=== PATIENT | female | born 1950 | race Asian ===

== ENCOUNTER 2017-04-18 09:06 | Inpatient (IN) ==
[2017-04-18] MEDS ORDERED: ALBUTEROL/IPRATROPIUM 2.5mg-0.5mg/3ml NEB IH ONE (09:29)
[2017-04-18] MEDS ORDERED: SALINE FLUSH 10ml SYRINGE ONE (10:41)
[2017-04-18] MEDS ORDERED: IOHEXOL 350mg/ml 75ml INJECTION ONE (10:41)
[2017-04-18] MEDS ORDERED: NS 100 ML ONE (10:41)
--- NOTE | 2017-04-18 11:27 | CT Scan Report ---
Indication: elevated ddimer, soa PROCEDURE: CT angio pulm emboli: Encounter: Initial Comparison: CT chest dated March 22, 2017 and PET/CT dated April 05, 2017 Technique: Axial CT pulmonary angiographic phase images were performed through the chest after the administration of intravenous contrast. Coronal and Sagittal MIP reconstructed images were created and reviewed. Automated Exposure Control and Iterative Reconstruction dose reducing techniques were utilized. Contrast: Omnipaque 350 53 mL Findings: Pulmonary arteries: Exam is diagnostic to the subsegmental pulmonary arterial level. No filling defects identified to suggest a pulmonary embolus. Other findings: Continued groundglass areas of opacity and consolidation seen in the right middle and both lower lobes. These are not significantly changed. There is new interstitial edema present with trace right pleural effusion. No pneumothorax. The central airways are patent. Anterior mediastinal mass is stable in appearance. Small left axillary and supraclavicular nodes are similar to the prior exam. Heart remains enlarged. New small pericardial effusion. The upper abdomen shows no acute findings. Cholelithiasis. Impression: 1. No pulmonary embolus. Mild pulmonary edema. 2. Continued multifocal areas of consolidation could represent metastatic disease given the history of gastric cancer. Acute infection is unlikely given the stable appearance. .
--- NOTE | 2017-04-18 12:36 | Emergency Department Report ---
SOB HPI - General Chief Complaint: Shortness of Breath/Dyspnea Stated Complaint: short of breath Time Seen by Provider: 04/18/17 09:12 - History of Present Illness 66-year-old female presents to ED with acute shortness of breath. Patient has a history of gastric cancer with new nodules, questionable thymoma. She is scheduled for cardiac stress test today pending a biopsy. However this morning she got up and was short of breath. She has a finger pulse oximeter at home and she noticed her pulse ox was 87%. She came to the ED, where her pulse ox was 77 % on room air. It sounds like she's been using oxygen at night on occasion, but has never had to use it during the day. She is comfortable and 4 L oxygen nasal cannula. At this time. - Related Data Home Medications Medication Instructions Recorded Confirmed Calcium Carbonate/Vitamin D3 1 tab PO DAILY 04/10/17 04/18/17 [Calcium 600-Vit D3 2,500 Sftgl] Multivit,Calc,Mins/Iron/Folic 1 each PO DAILY 04/10/17 04/18/17 [Women's Daily Caplet] [place]-3 Fatty Acids/Fish Oil [Fish 1 cap PO DAILY 04/10/17 04/18/17 Oil 1,200 mg Softgel] Previous Rx's Medication Instructions Recorded Budesonide Inhalation [Pulmicort 0.5 mg AEROSOL RTBID #60 vial 04/28/17 Inhalation] Guaifenesin LA [Mucinex LA] 600 mg PO BID PRN #30 tab 04/28/17 LEVALBUTEROL 1.25mg/3ml NEB 1.25 mg AEROSOL BID #60 neb 04/28/17 [XOPENEX 1.25mg/3ml] PredniSONE [Deltasone] 20 mg PO WB #5 tab 04/28/17 Allergies Allergy/AdvReac Type Severity Reaction Status Date / Time No Known Allergies Allergy Verified 05/11/17 10:29 [facility] Patient Stated Medical History Other HEENT Yes: glasses Heart Murmur Yes 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 D-dimer 1024, CT PE obtained and negative, however multiple areas of consolidation were noted. These were felt to be metastatic disease rather than infectious process. Patient required significant O2 supplementation despite being given DuoNeb treatment and is not appropriate for discharge home. Extensive labs are reviewed, hospitalist was consulted. Patient will be admitted to hospital service with consult to Dr. Hilario. - Differential Diagnosis Likely: acute exacerbation of chronic obstructive airways disease, community acquired pneumonia, asthma with exacerbation, pulmonary embolism - Medical Records Attestation: I reviewed the patient's medical records. - Lab Data Attestation: I reviewed the patient's lab results. Result diagrams: 04/28/17 04:10 04/28/17 04:10 Lab Results 04/18/17 04/18/17 04/18/17 Range/Units 08:50 09:47 09:47 WBC 9.3 (4.5-11.0) T/MM3 RBC 4.53 (4.00-5.20) M/MM3 Hgb 12.3 (12-16) GM/DL Hct 38.5 (36-46) % MCV 85.0 (80-100) UM3 MCH 27.2 (26-34) UUG MCHC 31.9 (31-37) GM/DL RDW Std Deviation 46.6 (36.9-50.2) FL Plt Count 145 (130-400) T/MM3 MPV 11.4 (9.4-12.4) UM3 Immature Gran % (Auto) 0.1 (0.0-0.5) % Neut % (Auto) 78.5 H (33-66) % Lymph % (Auto) 16.0 L (23-45) % [place] % (Auto) 5.2 (0-9.0) % Eos % (Auto) 0.0 (0-4) % Baso % (Auto) 0.2 (0-2) % Neut # 7.3 (1.8-7.7) T/MM3 Lymph # 1.5 (1-4.8) T/MM3 Cascade # 0.5 (0-0.8) T/MM3 Eos # 0.0 (0-0.5) T/MM3 Baso # 0.0 (0-0.2) T/MM3 Abs Immat Gran (auto) 0.01 (0.00-0.03) T/MM3 ESR (0-23) mm/h INR 1.17 (0.99-1.21) D-Dimer 1024 H (0-230) NG/ML ABG pH (7.350-7.450) ABG pCO2 (34-45) MMHG ABG pO2 (80-100) MMHG ABG HCO3 (22-26) MEQ/L ABG Total CO2 (23-27) MEQ/L ABG O2 Saturation (95.0-98.0) % ABG Base Excess (-2.0-2.0) MMOL/L Carboxyhemoglobin (0.5-1.5) % O2 Delivery Method FiO2 (liters per min) Turbidity < 20 (0-20) Sodium 147 H (134-144) MEQ/L Potassium 3.5 L (3.6-5) MEQ/L Chloride 108 H (98-107) MEQ/L Carbon Dioxide 23 (22-30) MEQ/L Anion Gap 16 H (5-15) MEQ/L BUN 15.0 (7-17) MG/DL Creatinine 0.8 (0.7-1.2) MG/DL GFR Calculation 72 BUN/Creatinine Ratio 19 (6-26) RATIO Glucose 234 H (65-110) MG/DL Calculated Osmolality 291 H (261-280) MOSM/KG Calcium 9.5 (8.4-10.2) MG/DL Magnesium (1.6-2.3) MG/DL Total Bilirubin 1.60 H (0.20-1.30) MG/DL Icterus Index < 2 (0-7) AST 60 H (14-36) U/L ALT 57 H (9-52) U/L Alkaline Phosphatase 105 (38-126) U/L Troponin I 0.040 (0-0.12) ng/ml C-Reactive Protein (0-9) MG/L B-Natriuretic Peptide 5440 H (0-175) pg/mL Total Protein 7.9 (6.3-8.2) G/DL Albumin 4.1 (3.5-5.0) G/DL Globulin 3.8 H (2.4-3.6) G/DL Albumin/Globulin Ratio 1.1 (1.1-2.2) RATIO TSH (0.47-4.68) MIU/L Specimen Hemolysis < 15 (0-25) Ur Collection Type Urine Color (YELLOW) Urine Clarity Urine pH (5.0-8.0) Ur Specific [place] (1.015-1.025) Urine Protein (NEGATIVE) Urine Glucose (UA) (NEGATIVE) Urine Ketones (NEGATIVE) Urine Occult Blood (NEGATIVE) Urine Nitrate (NEGATIVE) Urine Bilirubin (NEGATIVE) Urine Urobilinogen (NORMAL) EU/DL Ur Leukocyte Esterase (NEGATIVE) Urinalysis Comment 04/18/17 04/18/17 04/18/17 Range/Units 09:47 09:47 09:47 WBC (4.5-11.0) T/MM3 RBC (4.00-5.20) M/MM3 Hgb (12-16) GM/DL Hct (36-46) % MCV (80-100) UM3 MCH (26-34) UUG MCHC (31-37) GM/DL RDW Std Deviation (36.9-50.2) FL Plt Count (130-400) T/MM3 MPV (9.4-12.4) UM3 Immature Gran % (Auto) (0.0-0.5) % Neut % (Auto) (33-66) % Lymph % (Auto) (23-45) % [place] % (Auto) (0-9.0) % Eos % (Auto) (0-4) % Baso % (Auto) (0-2) % Neut # (1.8-7.7) T/MM3 Lymph # (1-4.8) T/MM3 Cascade # (0-0.8) T/MM3 Eos # (0-0.5) T/MM3 Baso # (0-0.2) T/MM3 Abs Immat Gran (auto) (0.00-0.03) T/MM3 ESR (0-23) mm/h INR (0.99-1.21) D-Dimer (0-230) NG/ML ABG pH (7.350-7.450) ABG pCO2 (34-45) MMHG ABG pO2 (80-100) MMHG ABG HCO3 (22-26) MEQ/L ABG Total CO2 (23-27) MEQ/L ABG O2 Saturation (95.0-98.0) % ABG Base Excess (-2.0-2.0) MMOL/L Carboxyhemoglobin 1.1 (0.5-1.5) % O2 Delivery Method FiO2 (liters per min) Turbidity (0-20) Sodium (134-144) MEQ/L Potassium (3.6-5) MEQ/L Chloride (98-107) MEQ/L Carbon Dioxide (22-30) MEQ/L Anion Gap (5-15) MEQ/L BUN (7-17) MG/DL Creatinine (0.7-1.2) MG/DL GFR Calculation BUN/Creatinine Ratio (6-26) RATIO Glucose (65-110) MG/DL Calculated Osmolality (261-280) MOSM/KG Calcium (8.4-10.2) MG/DL Magnesium 1.9 (1.6-2.3) MG/DL Total Bilirubin (0.20-1.30) MG/DL Icterus Index (0-7) AST (14-36) U/L ALT (9-52) U/L Alkaline Phosphatase (38-126) U/L Troponin I (0-0.12) ng/ml C-Reactive Protein 12.4 H (0-9) MG/L B-Natriuretic Peptide (0-175) pg/mL Total Protein (6.3-8.2) G/DL Albumin (3.5-5.0) G/DL Globulin (2.4-3.6) G/DL Albumin/Globulin Ratio (1.1-2.2) RATIO TSH 1.73 (0.47-4.68) MIU/L Specimen Hemolysis (0-25) Ur Collection Type Urine Color (YELLOW) Urine Clarity Urine pH (5.0-8.0) Ur Specific [place] (1.015-1.025) Urine Protein (NEGATIVE) Urine Glucose (UA) (NEGATIVE) Urine Ketones (NEGATIVE) Urine Occult Blood (NEGATIVE) Urine Nitrate (NEGATIVE) Urine Bilirubin (NEGATIVE) Urine Urobilinogen (NORMAL) EU/DL Ur Leukocyte Esterase (NEGATIVE) Urinalysis Comment 04/18/17 04/18/17 04/18/17 Range/Units 09:58 10:40 11:14 WBC (4.5-11.0) T/MM3 RBC (4.00-5.20) M/MM3 Hgb (12-16) GM/DL Hct (36-46) % MCV (80-100) UM3 MCH (26-34) UUG MCHC (31-37) GM/DL RDW Std Deviation (36.9-50.2) FL Plt Count (130-400) T/MM3 MPV (9.4-12.4) UM3 Immature Gran % (Auto) (0.0-0.5) % Neut % (Auto) (33-66) % Lymph % (Auto) (23-45) % [place] % (Auto) (0-9.0) % Eos % (Auto) (0-4) % Baso % (Auto) (0-2) % Neut # (1.8-7.7) T/MM3 Lymph # (1-4.8) T/MM3 [place] # (0-0.8) T/MM3 Eos # (0-0.5) T/MM3 Baso # (0-0.2) T/MM3 Abs Immat Gran (auto) (0.00-0.03) T/MM3 ESR (0-23) mm/h INR (0.99-1.21) D-Dimer (0-230) NG/ML ABG pH 7.490 H (7.350-7.450) ABG pCO2 31 L (34-45) MMHG ABG pO2 59 L (80-100) MMHG ABG HCO3 24 (22-26) MEQ/L ABG Total CO2 24.6 (23-27) MEQ/L ABG O2 Saturation 92.0 L (95.0-98.0) % ABG Base Excess 0.9 (-2.0-2.0) MMOL/L Carboxyhemoglobin (0.5-1.5) % O2 Delivery Method Nasal cannula, liter FiO2 (liters per min) 4 Turbidity (0-20) Sodium (134-144) MEQ/L Potassium (3.6-5) MEQ/L Chloride (98-107) MEQ/L Carbon Dioxide (22-30) MEQ/L Anion Gap (5-15) MEQ/L BUN (7-17) MG/DL Creatinine (0.7-1.2) MG/DL GFR Calculation BUN/Creatinine Ratio (6-26) RATIO Glucose (65-110) MG/DL Calculated Osmolality (261-280) MOSM/KG Calcium (8.4-10.2) MG/DL Magnesium (1.6-2.3) MG/DL Total Bilirubin (0.20-1.30) MG/DL Icterus Index (0-7) AST (14-36) U/L ALT (9-52) U/L Alkaline Phosphatase (38-126) U/L Troponin I 0.060 (0-0.12) ng/ml C-Reactive Protein (0-9) MG/L B-Natriuretic Peptide (0-175) pg/mL Total Protein (6.3-8.2) G/DL Albumin (3.5-5.0) G/DL Globulin (2.4-3.6) G/DL Albumin/Globulin Ratio (1.1-2.2) RATIO TSH (0.47-4.68) MIU/L Specimen Hemolysis < 15 (0-25) Ur Collection Type Urine, clean catch Urine Color Yellow (YELLOW) Urine Clarity Clear Urine pH 6.0 (5.0-8.0) Ur Specific [place] <=1.005 L (1.015-1.025) Urine Protein Negative (NEGATIVE) Urine Glucose (UA) Negative (NEGATIVE) Urine Ketones Negative (NEGATIVE) Urine Occult Blood Negative (NEGATIVE) Urine Nitrate Negative (NEGATIVE) Urine Bilirubin Negative (NEGATIVE) Urine Urobilinogen 0.2 (NORMAL) EU/DL Ur Leukocyte Esterase Negative (NEGATIVE) Urinalysis Comment Microscopic not ind. 04/18/17 04/19/17 04/19/17 Range/Units 16:07 04:55 04:55 WBC 9.5 (4.5-11.0) T/MM3 RBC 4.67 (4.00-5.20) M/MM3 Hgb 12.8 (12-16) GM/DL Hct 39.4 (36-46) % MCV 84.4 (80-100) UM3 MCH 27.4 (26-34) UUG MCHC 32.5 (31-37) GM/DL RDW Std Deviation 46.5 (36.9-50.2) FL Plt Count 154 (130-400) T/MM3 MPV 12.3 (9.4-12.4) UM3 Immature Gran % (Auto) 0.1 (0.0-0.5) % Neut % (Auto) 77.6 H (33-66) % Lymph % (Auto) 15.0 L (23-45) % [place] % (Auto) 7.1 (0-9.0) % Eos % (Auto) 0.0 (0-4) % Baso % (Auto) 0.2 (0-2) % Neut # 7.3 (1.8-7.7) T/MM3 Lymph # 1.4 (1-4.8) T/MM3 C[place] # 0.7 (0-0.8) T/MM3 Eos # 0.0 (0-0.5) T/MM3 Baso # 0.0 (0-0.2) T/MM3 Abs Immat Gran (auto) 0.01 (0.00-0.03) T/MM3 ESR 25 H (0-23) mm/h INR (0.99-1.21) D-Dimer (0-230) NG/ML ABG pH (7.350-7.450) ABG pCO2 (34-45) MMHG ABG pO2 (80-100) MMHG ABG HCO3 (22-26) MEQ/L ABG Total CO2 (23-27) MEQ/L ABG O2 Saturation (95.0-98.0) % ABG Base Excess (-2.0-2.0) MMOL/L Carboxyhemoglobin (0.5-1.5) % O2 Delivery Method FiO2 (liters per min) Turbidity < 20 (0-20) Sodium 145 H (134-144) MEQ/L Potassium 3.3 L (3.6-5) MEQ/L Chloride 108 H (98-107) MEQ/L Carbon Dioxide 25 (22-30) MEQ/L Anion Gap 12 (5-15) MEQ/L BUN 16.0 (7-17) MG/DL Creatinine 0.6 L D (0.7-1.2) MG/DL GFR Calculation 100 BUN/Creatinine Ratio 27 H (6-26) RATIO Glucose 128 H (65-110) MG/DL Calculated Osmolality 282 H (261-280) MOSM/KG Calcium 9.1 (8.4-10.2) MG/DL Magnesium 2.1 (1.6-2.3) MG/DL Total Bilirubin 1.00 (0.20-1.30) MG/DL Icterus Index < 2 (0-7) AST 39 H (14-36) U/L ALT 46 (9-52) U/L Alkaline Phosphatase 84 (38-126) U/L Troponin I (0-0.12) ng/ml C-Reactive Protein (0-9) MG/L B-Natriuretic Peptide (0-175) pg/mL Total Protein 6.8 (6.3-8.2) G/DL Albumin 3.4 L (3.5-5.0) G/DL Globulin 3.4 (2.4-3.6) G/DL Albumin/Globulin Ratio 1.0 L (1.1-2.2) RATIO TSH (0.47-4.68) MIU/L Specimen Hemolysis < 15 (0-25) Ur Collection Type Urine Color (YELLOW) Urine Clarity Urine pH (5.0-8.0) Ur Specific [place] (1.015-1.025) Urine Protein (NEGATIVE) Urine Glucose (UA) (NEGATIVE) Urine Ketones (NEGATIVE) Urine Occult Blood (NEGATIVE) Urine Nitrate (NEGATIVE) Urine Bilirubin (NEGATIVE) Urine Urobilinogen (NORMAL) EU/DL Ur Leukocyte Esterase (NEGATIVE) Urinalysis Comment - Radiology Data Attestation: I reviewed the patient's radiology results. Disposition Clinical Impression: DYSPNEA Disposition: 02 To [facility] Condition: Stable Time of Disposition: 12:12 - Seen By: physician
--- NOTE | 2017-04-18 13:42 | History & Physical Report ---
<Theodora Pagan V - Last Filed: 04/18/17 14:36> History of Present Illness Date: 04/18/17 Chief complaint: Dyspnea HPI: Carson is a pleasant 66-year-old female who has had a complicated several months. She had a unintentional 8 pound weight loss . She was evaluated by her primary care provider, Nicole Gavin at [facility]. A CT of the chest was obtained back in March 2017 following complaints of shortness of breath. At that time, patient was found to have an anterior mediastinal mass which was concerning for thyoma or lymphoma. Unfortunately, a CT-guided needle biopsy of the mediastinal mass did reveal thymoma. Bone scan was performed on April 01 that was negative for osseous metastasis. Thyroid sonogram from March 22 did reveal a 22 millimeter nodule adjacent to the deep aspect of the left thyroid lobe. An EGD was performed by Dr. Ortiz on April 10, 2017 to obtain gastric biopsy. Pathology revealed invasive adenocarcinoma. This morning patient noted to be more short of breath. She checked her oxygen saturation at home and it was found to be in the 80s. She felt that her heart rate was running fast and she activated EMS for transportation to [facility] emergency room for further evaluation. On arrival, room air saturations revealed 77%. Patient was placed on 4 liters of oxygen by nasal cannula to maintain adequate saturations. Basic laboratory studies were obtained in the emergency room. CBC was unremarkable. Sodium was found to be elevated at 147, potassium 3.5, BUN 15, creatinine 0.8, glucose 234. AST and ALT are mildly elevated. Initial troponin 0.040, proBNP 5440. Patient does report that she has recently been on Cipro and completed this course. Yesterday, however, she is unclear why she was taking this. ABG is obtained with a pH of 7.490, pCO2 31, pO2 59, bicarbonate 24. A urinalysis is unremarkable. INR 1.17, D-Dimer is elevated at 1024. Due to this finding, a CT scan of the chest was obtained to rule out PE. No pulmonary emboli was noted, mild pulmonary edema is present. Multi focal areas of consolidation could represent metastatic disease given history of gastric cancer. It is felt that acute infection is more unlikely. Review of Systems Comprehensive ROS: completed and no additional positive findings except those as stated - Constitutional Constitutional: Present: weight loss - Cardiovascular Cardiovascular: Present: dyspnea on exertion - Respiratory Respiratory: Present: dyspnea, dyspnea on exertion PFSH Malignant Thymoma of Mediastinum History of kidney stones. 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 McEachern. EGD- 04/11/17- Dr Ortiz Family History: Father- Liver disease, ETOH use Mother- Alive and well at 96. 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 Calles Medications Home Medications Medication Instructions Recorded Confirmed Type Calcium Carbonate/Vitamin D3 1 tab PO DAILY 04/10/17 04/18/17 History [Calcium 600-Vit D3 2,500 Sftgl] Ciprofloxacin [Cipro] 500 mg PO BID 04/10/17 04/18/17 History Multivit,Calc,Mins/Iron/Folic 1 each PO DAILY 04/10/17 04/18/17 History [Women's Daily Caplet] Elton-3 Fatty Acids/Fish Oil [Fish 1 cap PO DAILY 04/10/17 04/18/17 History Oil 1,200 mg Softgel] Allergies Allergy/AdvReac Type Severity Reaction Status Date / Time No Known Allergies Allergy Verified 04/18/17 13:38 Exam Vital Signs: Temperature 97.8 F 04/18/17 09:07 Pulse Rate 95 04/18/17 10:30 Respiratory Rate 24 04/18/17 10:30 Blood Pressure 104/65 04/18/17 09:30 Pulse Oximetry 92 04/18/17 10:30 - Constitutional Present: no acute distress, well nourished, well developed - Routine HEENT Exam Eye: Present: EOMI, PERRL ENT: Present: mucous membranes moist, dentition normal - Routine Respiratory Exam Present: crackles (bilateral bases). Absent: wheezes - Routine Cardiovascular Exam Present: RRR, S1, S2. Absent: murmur - Routine Abdominal Exam Present: soft, normoactive bowel sounds, non distended. Absent: tenderness - Routine Extremities Exam Present: no edema, normal capillary refill - Routine Back/Spine/Pelvis Exam Back/Spine: Present: full ROM - Routine Skin Exam Present: intact, dry, warm - Routine Neurological Exam Present: alert, oriented X3, CN II-XII intact, moving all extremities - Routine Psychiatric Exam Present: normal affect, normal thought process Results - Labs CBC & Chem 7: 04/18/17 09:47 04/18/17 08:50 Assessment and Plan (1) Respiratory failure with hypoxia Current visit: Yes Status: Acute (2) Hypernatremia Current visit: Yes Status: Acute (3) Hypokalemia Current visit: Yes Status: Acute (4) Thymoma Current visit: Yes Status: Acute (5) Gastric adenocarcinoma Current visit: Yes Status: Acute DVT Prophylaxis: SCD's Resuscitation Status: Do Not Resuscitate Assessment and Plan: Plan Patient outpatient observation under the care of Dr. Guillen for acute respiratory failure with hypoxia, hypernatremia with hypokalemia. Consultation placed to Dr. Hilario. 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 Consultations placed to both Dr. Watson and Dr. Daly as requested by oncology team for further evaluation of cardiomegaly and pulmonary status. Monitor patient. Cardiac telemetry An echocardiogram is ordered for further cardiac evaluation. Obtain CRP and ESR for laboratory completeness. Patient did recently complete a ten-day course of Cipro for antimicrobial coverage. Will cover patient with IV Rocephin as there is some question regarding pulmonary infiltrates. She was given a one-time dose of 40 milligrams of IV Lasix as well as oral potassium supplementation. Oxygen therapy to maintain adequate saturations. SCDs to bilateral lower extremity for DVT prophylaxis. We did discuss advanced directives and patient does verbalize her wish to be a do not resuscitate We'll discuss further orders and plan of care with attending, Dr. Callejas. At time of discharge medical care will return to primary care provider Nicole Gavin at [facility] Hospital Course Summary Disclaimer: The visit summary below is not to be considered part of the above Progress Note. Hospital Course: 04/18/17 admission Plan Patient outpatient observation under the care of Dr. Guillen for acute respiratory failure with hypoxia, hypernatremia with hypokalemia. Consultation placed to Dr. Hilario. 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 Consultations placed to both Dr. Watson and Dr. Daly as requested by oncology team for further evaluation of cardiomegaly and pulmonary status. Monitor patient. Cardiac telemetry An echocardiogram is ordered for further cardiac evaluation. Obtain CRP and ESR for laboratory completeness. Patient did recently complete a ten-day course of Cipro for antimicrobial coverage. Will cover patient with IV Rocephin as there is some question regarding pulmonary infiltrates. She was given a one-time dose of 40 milligrams of IV Lasix as well as oral potassium supplementation. Oxygen therapy to maintain adequate saturations. SCDs to bilateral lower extremity for DVT prophylaxis. We did discuss advanced directives and patient does verbalize her wish to be a do not resuscitate Will discuss further orders and plan of care with attending, Dr. Callejas. At time of discharge medical care will return to primary care provider Nicole Gavin at [facility] <Ayaan Guillen - Last Filed: 04/18/17 16:31> History of Present Illness Date: 04/18/17 [facility] Patient Stated Medical History Other HEENT Yes: glasses Heart Murmur Yes Tuberculosis Yes: positive TB test in 1997/neg CXR/took treatment Exam Vital Signs: Temperature 98.5 F 04/18/17 12:55 Pulse Rate 98 04/18/17 12:55 Respiratory Rate 18 04/18/17 12:55 Blood Pressure 122/82 04/18/17 12:55 Pulse Oximetry 90 04/18/17 12:55 Oxygen Delivery Method Nasal Cannula Oxygen Flow Rate 4 Height/Weight/BMI: Height 1.55 m Weight 55.7 kg Body Mass Index 23.2 Results - Labs CBC & Chem 7: 04/18/17 09:47 04/18/17 08:50 Assessment and Plan (1) Respiratory failure with hypoxia Current visit: Yes Status: Acute (2) Pulmonary edema Current visit: Yes Status: Acute (3) Hypernatremia Current visit: Yes Status: Acute (4) Hypokalemia Current visit: Yes Status: Acute (5) Thymoma Current visit: Yes Status: Chronic (6) Gastric adenocarcinoma Problem details: Recently Dx. Current visit: Yes Status: Chronic Assessment and Plan: Assessment Respiratory failure with hypoxia Pulmonary edema Hypernatremia (POA) Hypokalemia (POA) Thymoma Gastric adenocarcinoma Have independently interviewed and examined pt. Chart reviewed. Case discussed with ED physician, Dr Hilario, and my [employer]. Care plan developed with my supervision; agree with above. Has been progressively more SOA for the past 2 week. Minor SOA with activities initially, but progressive to the point that she cannot get around well without O2. Uses O2 at night, but has not needed it during the day. Does report dry cough and chest congestion. Has not been producing sputum. No f/c. Just finished a course of ciprofloxacin for pneumonia. Is more SOA at night-needs to prop self up to sleep or sleep in a chair. No edema to LE. No chest pressure or pain. Denies palpitations. Does try to stay active. 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 Lungs: decreased breath sound. Minimal crackles. No distress with O2. CV: regular AB: soft nt/nd +BS MSE: awake alert appropriate Plan: With patients pulmonary edema causing hypoxia (room air sats 77% needing 4L O2 to improve) due feel inpatient admission would be prudent. In discussion with Dr Hilario, her heart has shown significant enlargement from prior scans - cardiac evaluation is warranted. Additionally, CT scan shows area of potential metastatic disease - Pulm evaluation for bronchoscopy would be prudent. Due to these urgent medical needs we anticipate greater than 2 midnight s of care will be needed. Will give Lasix 40mg IV x1 to help decrease pulmonary edema. Will give oral potassium this evening as potassium low at presentation and Lasix will waste potassium. Continue with supplemental O2 for respiratory support. Rocephin for pulmonary coverage. SCD for DVT prevention. Will need to follow lab due to medication use. - Time spent with patient greater than 35 minutes Hospital Course Summary Disclaimer: The visit summary below is not to be considered part of the above Progress Note. Hospital Course: 04/18/17 Admission Plan Inpatient admission under the care of Dr. Guillen for acute respiratory failure with hypoxia, hypernatremia with hypokalemia. Patients pulmonary edema causing RA sats of 77% make inpatient treatment prudent. Anticipate greater than 2 midnights of care needed. Consultation placed to Dr. Hilario. 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 Consultations placed to both Dr. Watson and Dr. Daly as requested by oncology team for further evaluation of cardiomegaly and pulmonary status. Monitor patient. Cardiac telemetry. An echocardiogram is ordered for further cardiac evaluation. Obtain CRP and ESR for laboratory completeness. Patient did recently complete a ten-day course of Cipro for antimicrobial coverage. Will cover patient with IV Rocephin as there is some question regarding pulmonary infiltrates. She was given a one-time dose of 40 milligrams of IV Lasix as well as oral potassium supplementation. Oxygen therapy to maintain adequate saturations. SCDs to bilateral lower extremity for DVT prophylaxis. We did discuss advanced directives and patient does verbalize her wish to be a do not resuscitate. At time of discharge medical care will return to primary care provider Nicole Gavin at [facility].
[2017-04-18] MEDS ORDERED: FUROSEMIDE 40 MG/4 ML INJECTION IVP ONE (13:57)
[2017-04-18] MEDS ORDERED: CIPROFLOXACIN 500 MG TABLET PO SCH (14:30)
[2017-04-18] MEDS ORDERED: CALCIUM 600 + VIT D 400 TABLET PO SCH (14:30)
[2017-04-18] MEDS: MULTIVITAMIN PO SCH (14:59)
[2017-04-18] MEDS: FISH OIL PO SCH (15:01)
--- NOTE | 2017-04-18 15:34 | Cardiology Consult Note ---
History of Present Illness Consult date: 04/18/17 <Coty Miranda - 04/18/17 15:33> Requesting physician: Ayaan Guillen <Coty Miranda - 04/18/17 15:33> Consult reason: pre-op evaluation <Coty Miranda - 04/18/17 15:33> Chief complaint: shortness of breath <Coty Miranda - 04/18/17 16:15> History of present illness: Carson is a pleasant 66-year-old female who is known to our practice and last saw Abida Wright SHELBY on 04/02/17 for surgical clearance for thyroid biopsy after a complicated several months. She had an abnormal EKG per report from her PCP, in clinic her EKG was Sinus rhythm with non specific T wave changes. She was Scheduled for a stress test using Sebastián protocol to be done today, as well as a 2D echo before the next visit. She had a unintentional 8 pound weight loss . She was evaluated by her primary care provider, Nicole Gavin at [facility]. A CT of the chest was obtained back in March 2017 following complaints of shortness of breath. At that time, patient was found to have an anterior mediastinal mass which was concerning for thyoma or lymphoma. Unfortunately, a CT-guided needle biopsy of the mediastinal mass did reveal thymoma. Bone scan was performed on April 01 that was negative for osseous metastasis. Thyroid sonogram from March 22 did reveal a 22 millimeter nodule adjacent to the deep aspect of the left thyroid lobe. An EGD was performed by Dr. Ortiz on April 10, 2017 to obtain gastric biopsy. Pathology revealed invasive adenocarcinoma. This morning patient noted to be more short of breath. She checked her oxygen saturation at home and it was found to be in the 80s. She felt that her heart rate was running fast and she activated EMS for transportation to [facility] emergency room for further evaluation. On arrival, room air saturations revealed 77%. Patient was placed on 4 liters of oxygen by nasal cannula to maintain adequate saturations. Basic laboratory studies were obtained in the emergency room. CBC was unremarkable. Sodium was found to be elevated at 147, potassium 3.5, BUN 15, creatinine 0.8, glucose 234. AST and ALT are mildly elevated. Initial troponin 0.040, proBNP 5440. Patient does report that she has recently been on Cipro and completed this course. Yesterday, however, she is unclear why she was taking this. ABG is obtained with a pH of 7.490, pCO2 31, pO2 59, bicarbonate 24. A urinalysis is unremarkable. INR 1.17, D-Dimer is elevated at 1024. Due to this finding, a CT scan of the chest was obtained to rule out PE. No pulmonary emboli was noted, mild pulmonary edema is present. Multi focal areas of consolidation could represent metastatic disease given history of gastric cancer. It is felt that acute infection is more unlikely. <RuthCoty 04/18/17 16:15> Review of Systems - Constitutional Constitutional: Present: weight loss. Absent: chills, fatigue, fever(s) < RuthCoty 04/18/17 16:09> - EENMT Eyes: Absent: change in vision <RuthCoty 04/18/17 16:09> Balance: Absent: vertigo <RuthCoty 04/18/17 16:09> Mouth/Throat: Absent: sore throat <RuthCoty 04/18/17 16:09> - Cardiovascular Cardiovascular: Present: dyspnea on exertion. Absent: chest pain, palpitations , syncope, orthopnea <RuthCoty 04/18/17 16:09> Vascular: Absent: pedal edema <RuthCoty 04/18/17 16:09> - Respiratory Respiratory: Present: dyspnea on exertion. Absent: cough <RuthCoty 16:09> - Gastrointestinal Gastrointestinal: Absent: diarrhea, nausea, vomiting <RuthCoty 16:09> - Genitourinary Genitourinary: Absent: dysuria <RuthCoty 04/18/17 16:09> - Integumentary/Breasts Integumentary: Absent: rash <RuthCoty 04/18/17 16:09> - Neurological Neurological: Absent: dizziness <RuthCoty kerr 04/18/17 16:09> - Endocrine Endocrine: Absent: palpitations <RuthCoty kerr 04/18/17 16:09> [facility] Patient Stated Medical History Sleep Apnea No Other Respiratory Yes: mass on right lung, o2 at night and prn <NarcisaSarthak sanon - 04/22/17 13:39> Patient Stated Medical History Other HEENT Yes: glasses Heart Murmur Yes 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 History of positive TB test in 1997 followed by negative chest x-ray <Coty Miranda - 04/18/17 16:09> Surgical History: [id number]. [facility]Eac[facility]. EGD- 04/11/17- Dr Ortiz <Coty Miranda - 04/18/17 15:33> Family History: Father- Liver disease, ETOH use Mother- Alive and well at 96. Brother-stomach cancer Brother at age 56 of colon cancer Sister with colon cancer <Coty Miranda - 04/18/17 16:09> - Social History Smoking status: Never smoker <Coty Miranda 04/18/17 15:33> Substance use type: does not use <Coty Miranda 04/18/17 16:09> Alcohol intake frequency: does not drink <Coty Miranda - 04/18/17 16:09> Housing: house <Coty Miranda 04/18/17 16:09> Current occupational status: employed <Coty Miranda 04/18/17 16:09> Current residence: Apartment/Private Home <Coty Miranda 04/18/17 15:33> Medications Home Medications Medication Instructions Recorded Confirmed Type Calcium Carbonate/Vitamin D3 1 tab PO DAILY 04/10/17 04/18/17 History [Calcium 600-Vit D3 2,500 Sftgl] Ciprofloxacin [Cipro] 500 mg PO BID 04/10/17 04/18/17 History Multivit,Calc,Mins/Iron/Folic 1 each PO DAILY 04/10/17 04/18/17 History [Women's Daily Caplet] [place]-3 Fatty Acids/Fish Oil [Fish 1 cap PO DAILY 04/10/17 04/18/17 History Oil 1,200 mg Softgel] <Sarthak Watson - 04/22/17 13:39> Allergies Allergy/AdvReac Type Severity Reaction Status Date / Time No Known Allergies Allergy Verified 04/18/17 13:38 <Sarthak Watson - 04/22/17 13:39> Exam Vital signs: Temperature 97.0 F 04/22/17 11:41 Pulse Rate 94 04/22/17 11:41 Respiratory Rate 20 04/22/17 11:41 Blood Pressure 95/66 04/22/17 11:41 Pulse Oximetry 94 04/22/17 13:27 Oxygen Delivery Method Nasal Cannula Oxygen Flow Rate 4 <Sarthak Watson - 04/22/17 13:39> Temperature 98.5 F 04/18/17 12:55 Pulse Rate 98 04/18/17 12:55 Respiratory Rate 18 04/18/17 12:55 Blood Pressure 122/82 04/18/17 12:55 Pulse Oximetry 90 04/18/17 12:55 Oxygen Delivery Method Nasal Cannula Oxygen Flow Rate 4 <Coty Miranda - 04/18/17 15:33> - Constitutional no acute distress, well developed, cooperative <Coty iMranda [facility] 04/18/17 16: 15> - Routine HEENT Exam Head: Present: normocephalic <Coty Miranda 04/18/17 16:15> ENT: Present: mucous membranes moist <Coty Miranda 04/18/17 16:15> - Routine Neck Exam Absent: JVD, carotid bruit <Coty Miranda 04/18/17 16:15> - Routine Chest/Breast/Axilla Exam Chest wall: Absent: tenderness <Coty Miranda 04/18/17 16:15> - Routine Respiratory Exam Present: wheezes (bilateral bases). Absent: CTA bilaterally <Coty Miranda 04/18/17 16:15> - Routine Cardiovascular Exam Present: RRR, no murmur. Absent: JVD <Coty Miranda 04/18/17 16:15> - Routine Abdominal Exam Present: soft, normoactive bowel sounds <Coty Miranda 04/18/17 16:15> - Routine Extremities Exam Present: no edema <RuthCoty Blount 04/18/17 16:15> - Routine Skin Exam Present: intact, dry. Absent: rash <Coty Miranda M - 04/18/17 16:15> - Routine Neurological Exam Present: alert, oriented X3 <Coty Miranda - 04/18/17 16:15> - Routine Psychiatric Exam Present: normal affect, normal thought process <Coty Miranda - 04/18/17 16: 15> Results 04/22/17 04:52 04/22/17 04:52 <Wilfrido Watsonin - 04/22/17 13:39> CBC 04/22/17 Range/Units 04:52 WBC 8.9 (4.5-11.0) T/MM3 RBC 4.53 (4.00-5.20) M/MM3 Hgb 12.5 (12-16) GM/DL Hct 38.7 (36-46) % Plt Count 118 L (130-400) T/MM3 Neut # 6.2 (1.8-7.7) T/MM3 Lymph # 2.1 (1-4.8) T/MM3 [place] # 0.6 (0-0.8) T/MM3 Eos # 0.0 (0-0.5) T/MM3 Baso # 0.0 (0-0.2) T/MM3 Comprehensive Metabolic Panel 04/22/17 Range/Units 04:52 Sodium 143 (134-144) MEQ/L Potassium 3.7 (3.6-5) MEQ/L Chloride 107 (98-107) MEQ/L Carbon Dioxide 26 (22-30) MEQ/L BUN 15.0 (7-17) MG/DL Creatinine 0.6 L (0.7-1.2) MG/DL Glucose 127 H (65-110) MG/DL Calcium 8.6 (8.4-10.2) MG/DL Intake and Output 04/21/17 04/22/17 04/22/17 22:59 06:59 14:59 Intake Total 780 / 780 0 / 0 240 / 240 Output Total 450 / 450 100 / 100 425 / 425 Balance 330 / 330 -100 / -100 -185 / -185 Intake: IV 100 / 100 Rocephin 1 G In Normal 100 / 100 Saline 100 ml @ 200 mls/ hr IV Q24H [facility] Rx#: [id number] Oral 680 / 680 0 / 0 240 / 240 Output: Urine 450 / 450 100 / 100 425 / 425 Other: # Bowel Movements 1 Weight 55.3 kg Patient Weight 04/23/17 06:59 Weight 55.3 kg <Sarthak Watson - 04/22/17 13:39> Intake and Output 04/18/17 04/18/17 04/18/17 06:59 14:59 22:59 Other: # Voids 1 Weight 122 lb 12.76 oz Patient Weight 04/19/17 06:59 Weight 122 lb 12.76 oz Laboratory Results - last 48 hr 04/18/17 04/18/17 04/18/17 08:50 09:47 09:47 WBC 9.3 RBC 4.53 Hgb 12.3 Hct 38.5 MCV 85.0 MCH 27.2 MCHC 31.9 RDW Std Deviation 46.6 Plt Count 145 MPV 11.4 Immature Gran % (Auto) 0.1 Neut % (Auto) 78.5 H Lymph % (Auto) 16.0 L [place] % (Auto) 5.2 Eos % (Auto) 0.0 Baso % (Auto) 0.2 Neut # 7.3 Lymph # 1.5 [place] # 0.5 Eos # 0.0 Baso # 0.0 Abs Immat Gran (auto) 0.01 INR 1.17 D-Dimer 1024 H ABG pH ABG pCO2 ABG pO2 ABG HCO3 ABG Total CO2 ABG O2 Saturation ABG Base Excess Carboxyhemoglobin O2 Delivery Method FiO2 (liters per min) Turbidity < 20 Sodium 147 H Potassium 3.5 L Chloride 108 H Carbon Dioxide 23 Anion Gap 16 H BUN 15.0 Creatinine 0.8 GFR Calculation 72 BUN/Creatinine Ratio 19 Glucose 234 H Calculated Osmolality 291 H Calcium 9.5 Total Bilirubin 1.60 H Icterus Index < 2 AST 60 H ALT 57 H Alkaline Phosphatase 105 Troponin I 0.040 C-Reactive Protein B-Natriuretic Peptide 5440 H Total Protein 7.9 Albumin 4.1 Globulin 3.8 H Albumin/Globulin Ratio 1.1 Specimen Hemolysis < 15 Ur Collection Type Urine Color Urine Clarity Urine pH Ur Specific [place] Urine Protein Urine Glucose (UA) Urine Ketones Urine Occult Blood Urine Nitrate Urine Bilirubin Urine Urobilinogen Ur Leukocyte Esterase Urinalysis Comment 04/18/17 04/18/17 04/18/17 09:47 09:47 09:58 WBC RBC Hgb Hct MCV MCH MCHC RDW Std Deviation Plt Count MPV Immature Gran % (Auto) Neut % (Auto) Lymph % (Auto) [place] % (Auto) Eos % (Auto) Baso % (Auto) Neut # Lymph # [place] # Eos # Baso # Abs Immat Gran (auto) INR D-Dimer ABG pH 7.490 H ABG pCO2 31 L ABG pO2 59 L ABG HCO3 24 ABG Total CO2 24.6 ABG O2 Saturation 92.0 L ABG Base Excess 0.9 Carboxyhemoglobin 1.1 O2 Delivery Method Nasal cannula, liter FiO2 (liters per min) 4 Turbidity Sodium Potassium Chloride Carbon Dioxide Anion Gap BUN Creatinine GFR Calculation BUN/Creatinine Ratio Glucose Calculated Osmolality Calcium Total Bilirubin Icterus Index AST ALT Alkaline Phosphatase Troponin I C-Reactive Protein 12.4 H B-Natriuretic Peptide Total Protein Albumin Globulin Albumin/Globulin Ratio Specimen Hemolysis Ur Collection Type Urine Color Urine Clarity Urine pH Ur Specific [place] Urine Protein Urine Glucose (UA) Urine Ketones Urine Occult Blood Urine Nitrate Urine Bilirubin Urine Urobilinogen Ur Leukocyte Esterase Urinalysis Comment 04/18/17 04/18/17 10:40 11:14 WBC RBC Hgb Hct MCV MCH MCHC RDW Std Deviation Plt Count MPV Immature Gran % (Auto) Neut % (Auto) Lymph % (Auto) [place] % (Auto) Eos % (Auto) Baso % (Auto) Neut # Lymph # [place] # Eos # Baso # Abs Immat Gran (auto) INR D-Dimer ABG pH ABG pCO2 ABG pO2 ABG HCO3 ABG Total CO2 ABG O2 Saturation ABG Base Excess Carboxyhemoglobin O2 Delivery Method FiO2 (liters per min) Turbidity Sodium Potassium Chloride Carbon Dioxide Anion Gap BUN Creatinine GFR Calculation BUN/Creatinine Ratio Glucose Calculated Osmolality Calcium Total Bilirubin Icterus Index AST ALT Alkaline Phosphatase Troponin I 0.060 C-Reactive Protein B-Natriuretic Peptide Total Protein Albumin Globulin Albumin/Globulin Ratio Specimen Hemolysis < 15 Ur Collection Type Urine, clean catch Urine Color Yellow Urine Clarity Clear Urine pH 6.0 Ur Specific [place] <=1.005 L Urine Protein Negative Urine Glucose (UA) Negative Urine Ketones Negative Urine Occult Blood Negative Urine Nitrate Negative Urine Bilirubin Negative Urine Urobilinogen 0.2 Ur Leukocyte Esterase Negative Urinalysis Comment Microscopic not ind. <Coty Miranda - 04/18/17 16:09> - Imaging and Cardiology Imaging & Cardiology Narrative: Date of Exam: 08/17/17 Ordering Provider: Elder Ch MD Type of Exam(s): CT angio pulm emboli Reason for Exam(s): elevated ddimer, soa Indication: elevated ddimer, soa PROCEDURE: CT angio pulm emboli: Encounter: Initial Comparison: CT chest dated March 22, 2017 and PET/CT dated April 05, 2017 Technique: Axial CT pulmonary angiographic phase images were performed through the chest after the administration of intravenous contrast. Coronal and Sagittal MIP reconstructed images were created and reviewed. Automated Exposure Control and Iterative Reconstruction dose reducing techniques were utilized. Contrast: Omnipaque 350 53 mL Findings: Pulmonary arteries: Exam is diagnostic to the subsegmental pulmonary arterial level. No filling defects identified to suggest a pulmonary embolus. Other findings: Continued groundglass areas of opacity and consolidation seen in the right middle and both lower lobes. These are not significantly changed. There is new interstitial edema present with trace right pleural effusion. No pneumothorax. The central airways are patent. Anterior mediastinal mass is stable in appearance. Small left axillary and supraclavicular nodes are similar to the prior exam. Heart remains enlarged. New small pericardial effusion. The upper abdomen shows no acute findings. Cholelithiasis. Impression: 1. No pulmonary embolus. Mild pulmonary edema. 2. Continued multifocal areas of consolidation could represent metastatic disease given the history of gastric cancer. Acute infection is unlikely given the stable appearance. 04/18/17 15:33 <oCty Miranda - 04/18/17 15:33> EKG interpretations - Dysrhythmias Sinus rhythms and dysrhythmias: sinus rhythm <Coty Miranda - 04/18/17 16:09> - Blocks, axis, hypertrophy, ST abn Repolarization changes or abnormalities: nonspecific abnormality, ST segment, and/or T wave <Coty Miranda - 04/18/17 16:09> Assessment and Plan (1) Respiratory failure with hypoxia Current visit: Yes Status: Acute (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 Current visit: Yes Status: Chronic (4) Encounter for preprocedural cardiovascular examination Current visit: Yes Status: Acute (5) Abnormal electrocardiogram Current visit: Yes Status: Acute (6) Pulmonary edema Current visit: Yes Status: Acute (7) Pulmonary hypertension Current visit: Yes Status: Acute <Sarthak Watson - 04/22/17 13:39> (1) Pulmonary edema Current visit: Yes Status: Acute Gentle diuresis with Lasix 20mg IV daily. Monitor response and BP. Monitor electrolytes and renal function (2) Respiratory failure with hypoxia Current visit: Yes Status: Acute (3) Encounter for preprocedural cardiovascular examination Current visit: Yes Status: Acute Obtain echo. Further cardiac work-up, such as scheduled stress test should be done at some point in the future. (4) Abnormal electrocardiogram Current visit: Yes Status: Acute (5) Thymoma Current visit: Yes Status: Chronic (6) Gastric adenocarcinoma Problem details: Recently Dx. Current visit: Yes Status: Chronic (7) Pulmonary hypertension Current visit: Yes Status: Acute Right heart dilated on Echo due to patient's pulmonary disease. pa pressures on echo 72mmhg. Needs to proceed with bronchoscopy if indicated by pulmonary Gentle diuresis with Lasix 20mg IV daily. Monitor response and BP. Monitor electrolytes and renal function <Coty Miranda - 04/22/17 12:21> - Attestation Attestation Narrative: 04/22/17 13:39 Recommendation After examining the patient I agree with the above assessment. I am involved in the formulation of the patient's plan of care. <Sarthak Watson - 04/22/17 13:39> Hospital Course Summary Disclaimer: The visit summary below is not to be considered part of the above Progress Note. <Sarthak Watson - 04/22/17 13:39> The visit summary below is not to be considered part of the above Progress Note. <Coty Miranda - 04/18/17 15:33> Hospital Course: 04/18/17 admission Plan Patient outpatient observation under the care of Dr. Guillen for acute respiratory failure with hypoxia, hypernatremia with hypokalemia. Consultation placed to Dr. Hilario. 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 Consultations placed to both Dr. Watson and Dr. Daly as requested by oncology team for further evaluation of cardiomegaly and pulmonary status. Monitor patient. Cardiac telemetry An echocardiogram is ordered for further cardiac evaluation. Obtain CRP and ESR for laboratory completeness. Patient did recently complete a ten-day course of Cipro for antimicrobial coverage. Will cover patient with IV Rocephin as there is some question regarding pulmonary infiltrates. She was given a one-time dose of 40 milligrams of IV Lasix as well as oral potassium supplementation. Oxygen therapy to maintain adequate saturations. SCDs to bilateral lower extremity for DVT prophylaxis. We did discuss advanced directives and patient does verbalize her wish to be a do not resuscitate Will discuss further orders and plan of care with attending, Dr. Callejas. At time of discharge medical care will return to primary care provider Nicole Gavin at [facility] <Coty Miranda - 04/18/17 15:33> Sepsis Assessment - Evaluation Sepsis screening result: No Definite Risk <Coty Miranda 04/18/17 15:33>
[2017-04-18] MEDS ORDERED: ACETAMINOPHEN 325 MG TABLET PO PRN (15:44)
[2017-04-18] MEDS ORDERED: ONDANSETRON 4 MG/2 ML INJECTION IVP PRN (15:45)
[2017-04-18] MEDS ORDERED: POLYETHYL GLYCOL 3350 17gm PACKET PO PRN (15:49)
[2017-04-18] MEDS: CEFTRIAXONE 1 G in NS 100 ML IV SCH (16:30)
[2017-04-18] MEDS: NS FLUSH BAG 500ml IV PRN (16:48)
--- NOTE | 2017-04-18 16:56 | Consult Note ---
Oncology HPI - Data of Consult Patient: new to practice <Patsy Elaine - 04/18/17 16:57> Requesting Physician: Ayaan Guillen MD <Markus Hilario - 04/18/17 18:12> Ayaan Guillen MD <CheleKaryna hopemonserrat Heller - 04/18/17 17:32> Primary Care Provider: Nicole Gavin APRN <Markus Hilario - 04/18/17 18:12> Nicole Gavin APRN <Patsy Elaine - 04/18/17 17:32> Family Provider: Nicole Gavin APRN <Markus Hilario - 04/18/17 18:12> Nicole Gavin APRN <Patsy Elaine - 04/18/17 17:32> - Consult Narrative History of present illness: Patient had upper endoscopy by Dr. Ortiz that showed a gastric ulcer with mass. Biopsy shows gastric adenocarcinoma. She had the sudden onset of increasing shortness of breath this morning. She came into the ER for evaluation and found to have a elevated BNP. CT scan shows increased cardiomegaly along with changes that could be worrisome for lymphangitic spread of cancer along with the prior infiltrates that were present in March that did not change significantly. <Markus Hilario - 04/18/17 18:12> 66 yr. 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 Was undergoing continued workup. Has had persistent signs respiratory infection. Today had acute episode of dyspnea with noted hypoxia; was admitted to [facility] [place] for further evaluation and supportive care. At time of intake, is alert and oriented. Feels weak. Denies h/ a, vision changes. No chest pain. Denies feeling SOA. Has intermittent non- prod. cough. Dennies chest pain. No n/v. One episode of loose stools and reports "green stools for past few days." No hematuria/dyusuria. See below for oncology HPI History of Present Illness --1987: Positive PPD. Negative chest x-ray. Treated with 6 months of presumed INH. --01/2017: Cough productive of green-yellow sputum. --03/21/17: Chest x-ray showing right middle lobe consolidation. 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 --Family history positive for colon cancer in youngest brother and older sister brother with gastric cancer. She had colonoscopy in 2011. 04/08/17: Carson is here this morning by herself. We reviewed her pathology which showed thymoma. We reviewed the side effects and treatment options. Treatment is usually surgery. She is currently stage II based on current testing. For stage III we could look at radiation therapy and possibly chemotherapy. We reviewed the images of her PET scan. In her stomach, there is an area on the wall of her stomach that is worrisome so it is important to get the EGD she has scheduled for consultation on Saturday. If there is cancer in the stomach that would take precedence over the thymoma surgery. She is not coughing much; usually only if her throat is dry so she keeps trying to drink water. Will give an antibiotic for pulmonary infiltrates. Carson asked that I call her daughter to discuss today's visit. <Patsy Elaine 04/18/17 17:32> Review of Systems - Constitutional Constitutional: Present: fatigue, weakness, weight loss <Patsy Elaine 16:57> - EENT Eyes: Absent: loss of vision <Patsy Elaine 04/18/17 16:57> Mouth/Throat: Absent: sore throat, painful swallowing <Patsy Elaine 16:57> - Cardiovascular Cardiovascular: Absent: chest pain, palpitations, edema <Patsy Elaine 17:32> - Respiratory Respiratory: Present: dyspnea, dyspnea on exertion. Absent: hemoptysis, wheezing <Patsy Elaine 04/18/17 17:32> - Gastrointestinal Gastrointestinal: Present: change in stool character ("green stools for past few days"). Absent: abdominal pain, hematemesis, hematochezia <Patsy Elaine 04/18/17 17:32> - Genitourinary Genitourinary: Absent: hematuria, urinary incontinence <Patsy Elaine 04/18 17:32> - Musculoskeletal Musculoskeletal: Present: muscle weakness. Absent: arthralgias <Patsy Elaine - 04/18/17 17:32> - Integumentary/Breasts Integumentary: Absent: pruritus, rash <Patsy Elaine - 04/18/17 17:32> - Neurological Neurological: Present: weakness <Patsy Elaine 04/18/17 16:57> - Psychiatric Psychiatric: Absent: anxiety, depression <Patsy Elaine 04/18/17 16:57> [facility] Patient Stated Medical History Other HEENT Yes: glasses Heart Murmur Yes Tuberculosis Yes: positive TB test in 1997/neg CXR/took treatment <Markus Hilario - 04/18/17 18:12> Patient Stated Medical History Other HEENT Yes: glasses Heart Murmur Yes Tuberculosis Yes: positive 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 McEachern. EGD- 04/11/17- Dr Ortiz <Patsy Elaine - 04/18/17 16:57> - Social History Smoking status: Never smoker <Patsy Elaine 04/18/17 16:57> Current residence: Apartment/Private Home <Patsy Elaine - 04/18/17 16:57> Medications Home Medications Medication Instructions Recorded Confirmed Type Calcium Carbonate/Vitamin D3 1 tab PO DAILY 04/10/17 04/18/17 History [Calcium 600-Vit D3 2,500 Sftgl] Ciprofloxacin [Cipro] 500 mg PO BID 04/10/17 04/18/17 History Multivit,Calc,Mins/Iron/Folic 1 each PO DAILY 04/10/17 04/18/17 History [Women's Daily Caplet] [place]-3 Fatty Acids/Fish Oil [Fish 1 cap PO DAILY 04/10/17 04/18/17 History Oil 1,200 mg Softgel] <Markus Hilario - 04/18/17 18:12> Allergies Allergy/AdvReac Type Severity Reaction Status Date / Time No Known Allergies Allergy Verified 04/18/17 13:38 <Markus Hilario - 04/18/17 18:12> Exam Vital signs: Temperature 95.2 F L 04/18/17 16:13 Pulse Rate 86 04/18/17 16:13 Respiratory Rate 20 04/18/17 16:13 Blood Pressure 126/77 04/18/17 16:13 Pulse Oximetry 93 04/18/17 17:06 Oxygen Delivery Method Nasal Cannula Oxygen Flow Rate 4 <Markus Hilario - 04/18/17 18:12> Temperature 95.2 F L 04/18/17 16:13 Pulse Rate 86 04/18/17 16:13 Respiratory Rate 20 04/18/17 16:13 Blood Pressure 126/77 04/18/17 16:13 Pulse Oximetry 92 04/18/17 16:13 Oxygen Delivery Method Nasal Cannula Oxygen Flow Rate 4 <Patsy Elaine - 04/18/17 16:57> - Constitutional no acute distress, well nourished, well developed <Patsy Elaine - 04/18/17 16:57> - Routine HEENT Exam Head: Present: normocephalic <Patsy Elaine - 04/18/17 16:57> Eye: Present: EOMI, PERRL, scleral injection, conjunctivae pink <Patsy Elaine - 04/18/17 16:57> ENT: Present: mucous membranes moist <Patsy Elaine - 04/18/17 16:57> Nose: moist mucous membranes <Patsy Elaine - 04/18/17 16:57> - Routine Neck Exam Present: lymphadenopathy (left anterior cervical 1 cm, left supraclavicular) <Markus Hilario - 04/18/17 18:12> Present: supple, lymphadenopathy (left anterior cervical 1 cm). Absent: tenderness <Patsy Elaine - 04/18/17 16:57> - Routine Respiratory Exam Present: rhonchi, crackles (bibasilar crackles). Absent: wheezes <Patsy Elaine - 04/18/17 17:32> - Routine Cardiovascular Exam Present: S3 <Markus Hilario - 04/18/17 18:12> Present: RRR, tachycardia. Absent: no murmur, gallop <Patsy Elaine - 04/18/17 16:57> - Routine Abdominal Exam Present: non distended <Markus Hilario - 04/18/17 18:12> Present: soft. Absent: tenderness, organomegaly <Patsy Elaine - 04/18/17 16:57> - Routine Extremities Exam Absent: cyanosis, no edema <Patsy Elaine - 04/18/17 16:57> - Routine Back/Spine/Pelvis Exam Back/Spine: Absent: vertebral tenderness <Patsy Elaine 04/18/17 16:57> - Routine Skin Exam Present: intact, dry, warm <Patsy Elaine - 04/18/17 16:57> - Routine Neurological Exam Present: alert, oriented X3, moving all extremities <Patsy Elaine 16:57> - Routine Psychiatric Exam Present: normal affect, normal thought process <Patsy Elaine 04/18/17 16: 57> Oncology Results - Labs CBC & Chem 7: 04/18/17 09:47 04/18/17 08:50 <Markus Hilario - 04/18/17 18:12> - Impressions CT scan reviewed and shows cardiomegaly and pulmonary infiltrates. Discussed with Dr. Yates. <Markus Hilario - 04/18/17 18:12> Assessment and Plan Assessment and Plan: 1. Elevated BNP and shortness of breath suggestive of congestive heart failure currently better after Lasix. CT scan does show small pericardial effusion will evaluate with echocardiogram. 2. Gastric cancer shown on recent biopsy HER-2 testing is currently pending. It was 1+ on IHC with fish being pending. I am concerned that she has metastatic disease to the left supraclavicular lymph node and would consider biopsy to confirm this if further biopsies do not confirm metastatic disease 3. Thymoma present anterior mediastinum found on needle biopsy 4. 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 With 3 negative AFB smears at [facility] March 2017 5. Pulmonary infiltrates with appearance of a air bronchogram and infiltrates around the bronchus along with other areas that appeared nodular and more infectious or lymphangitic spread of carcinoma. Will consult Dr. Daly for consideration of bronchoscopy and biopsy to confirm diagnosis of etiology of infiltrates. Recommendations Cardiology consultation Echocardiogram Pulmonary consultation Consider bronchoscopy Diuresis Staging of gastric cancer to determine best treatment <Markus Hilario 04/18/17 18:12> Sepsis Assessment - Evaluation Sepsis screening result: No Definite Risk <Patsy Elaine - 04/18/17 16:57>
[2017-04-18] MEDS: SALINE FLUSH 10ml SYRINGE IVF PRN (20:38)
[2017-04-19 07:34] VITALS: BMI 23.0
--- NOTE | 2017-04-19 07:37 | Echocardiogram ---
DATE OF PROCEDURE April 18, [address] Ayaan Guillen This is a two-dimensional echo with spectral Doppler, color-flow and M-mode. It was obtained in a patient with cardiomegaly. Left atrial dimension is normal. Left ventricle end-diastolic dimension is normal. Left ventricle wall thickness increased. LV systolic function is normal with ejection fraction of about 74%. Right atrium is dilated. Right ventricle is dilated with global hypokinesia. Aortic root dimension is normal. Mitral valve is morphologically normal with mild mitral regurgitation. Aortic valve is a trileaflet structure with no stenosis or insufficiency. Tricuspid valve shows [id number] tricuspid regurgitation with severe pulmonary hypertension with estimated pulmonary artery systolic pressure of 72. Interventricular septum is flat suggestive of pressure overload. Pulmonary valve shows mild pulmonary insufficiency. There is no pericardial effusion. IMPRESSION 1. Normal LV systolic function with ejection fraction of 74%. 2. Left ventricular hypertrophy. 3. Right atrial dilation. 4. Right ventricular dilation with global hypokinesia. 5. Mild mitral regurgitation. 6. [id number] tricuspid regurgitation with severe pulmonary hypertension with estimated pulmonary artery systolic pressure of 72. 7. Mild pulmonary insufficiency. MTDD
--- NOTE | 2017-04-19 07:55 | Pulmonology Consult Note ---
History of Present Illness Consult date: 04/19/17 Reason for consult: dyspnea, cough, abnormal CXR/CT History of present illness: History of present illness: Patient states she feels better today, since she is using O2. Still weak. Reports some coughing and mild sputum. No chest pain. Denies fever. Patient had upper endoscopy by Dr. Ortiz that showed a gastric ulcer with mass. Biopsy shows gastric adenocarcinoma. She had the sudden onset of increasing shortness of breath this morning. She came into the ER for evaluation and found to have a elevated BNP. CT scan shows increased cardiomegaly along with changes that could be worrisome for lymphangitic spread of cancer along with the prior infiltrates that were present in March that did not change significantly. <Markus Hilario - 04/18/17 18:12> 66 yr. 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 Was undergoing continued workup. Has had persistent signs respiratory infection. Today had acute episode of dyspnea with noted hypoxia; was admitted to [facility] [place] for further evaluation and supportive care. At time of intake, is alert and oriented. Feels weak. Denies h/ a, vision changes. No chest pain. Denies feeling SOA. Has intermittent non- prod. cough. Dennies chest pain. No n/v. One episode of loose stools and reports "green stools for past few days." No hematuria/dyusuria. See below for oncology HPI History of Present Illness --1987: Positive PPD. Negative chest x-ray. Treated with 6 months of presumed INH. --01/2017: Cough productive of green-yellow sputum. --03/21/17: Chest x-ray showing right middle lobe consolidation. 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 --Family history positive for colon cancer in youngest brother and older sister brother with gastric cancer. She had colonoscopy in 2011. 04/08/17: Carson is here this morning by herself. We reviewed her pathology which showed thymoma. We reviewed the side effects and treatment options. Treatment is usually surgery. She is currently stage II based on current testing. For stage III we could look at radiation therapy and possibly chemotherapy. We reviewed the images of her PET scan. In her stomach, there is an area on the wall of her stomach that is worrisome so it is important to get the EGD she has scheduled for consultation on Saturday. If there is cancer in the stomach that would take precedence over the thymoma surgery. She is not coughing much; usually only if her throat is dry so she keeps trying to drink water. Will give an antibiotic for pulmonary infiltrates. Carson asked that I call her daughter to discuss today's visit. 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 McEachern. EGD- 04/11/17- Dr Ortiz <Patsy Elaine Pina - 04/18/17 16:57> - Social History Smoking status: Never smoker <Patsy Elaine Pina - 04/18/17 16:57> Current residence: Apartment/Private Home <Patsy Elaine Pina - 04/18/17 16:57> Review of Systems - Constitutional Constitutional: Present: weight loss. 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 McEachern. EGD- 04/11/17- Dr Ortiz - Social History Smoking status: Never smoker Current residence: Apartment/Private Home Medications Allergies Allergy/AdvReac Type Severity Reaction Status Date / Time No Known Allergies Allergy Verified 04/18/17 13:38 Exam Vital signs: Temperature 95.8 F L 04/19/17 07:30 Pulse Rate 76 04/19/17 07:30 Respiratory Rate 20 04/19/17 07:30 Blood Pressure 114/69 04/19/17 07:30 Pulse Oximetry 93 04/19/17 07:30 Oxygen Delivery Method Nasal Cannula Oxygen Flow Rate 4 - Constitutional no acute distress - Routine HEENT Exam Head: Present: normocephalic, atraumatic Eye: Present: PERRL ENT: Present: mucous membranes moist - Routine Neck Exam Present: supple, full ROM - Routine Respiratory Exam Present: crackles - Routine Cardiovascular Exam Present: RRR, S1, S2. Absent: murmur - Routine Abdominal Exam Present: soft - Routine Extremities Exam Absent: cyanosis, clubbing - Routine Skin Exam Present: intact. Absent: erythema, rash - Routine Neurological Exam Present: alert, oriented X3 - Routine Psychiatric Exam Present: normal affect Results - Laboratory Findings CBC and BMP: 04/19/17 04:55 04/19/17 04:55 ABG ABG pH 7.490 (7.350-7.450) H 04/18/17 09:58 ABG pCO2 31 MMHG (34-45) L 04/18/17 09:58 ABG pO2 59 MMHG (80-100) L 04/18/17 09:58 ABG O2 Saturation 92.0 % (95.0-98.0) L 04/18/17 09:58 PT/INR, D-dimer INR 1.17 (0.99-1.21) 04/18/17 09:47 D-Dimer 1024 NG/ML (0-230) H 04/18/17 09:47 Abnormal lab findings: Abnormal Labs 04/18/17 04/19/17 04/19/17 16:07 04:55 04:55 Neut % (Auto) 77.6 H Lymph % (Auto) 15.0 L ESR 25 H Sodium 145 H Potassium 3.3 L Chloride 108 H Creatinine 0.6 L D BUN/Creatinine Ratio 27 H Glucose 128 H Calculated Osmolality 282 H AST 39 H Albumin 3.4 L Albumin/Globulin Ratio 1.0 L - Diagnostic Findings CT scan - chest: image reviewed (Bilateral lower lobe mixed alveolar and interstitial opacities, bulky right paratracheal LN.) Assessment and Plan (1) Abnormal CT of the chest Current visit: Yes Status: Acute Unclear etiology. Most concerning in the DDx would be metastatic carcinoma. bronchoscopy with BAL, brush, biopsies is the most reasonable approach. (2) Respiratory failure with hypoxia Current visit: Yes Status: Acute continue O2 by nc to keep sat >90%. Does pose some risk for hypoxia concerning the bronchoscopy. Will need close monitoring.
--- NOTE | 2017-04-19 10:38 | Progress Note ---
<Theodora Pagan V - Last Filed: 04/19/17 10:30> Subjective: Carson is seen in follow up this morning with family and friends at her bedside. She is alert and pleasant. Overall, states that she is feeling better this morning and her breathing seems less effort. She reports that she slept well overnight. He does continue to require oxygen by nasal cannula to maintain adequate saturations. Currently denies having any chest pain, shortness of breath at rest or GI complaints. Objective Vital signs: Temperature 95.8 F L 04/19/17 07:30 Pulse Rate 76 04/19/17 07:30 Respiratory Rate 20 04/19/17 07:30 Blood Pressure 114/69 04/19/17 07:30 Pulse Oximetry 93 04/19/17 07:30 Oxygen Delivery Method Nasal Cannula Oxygen Flow Rate 4 Height/Weight/BMI: Height 1.55 m Weight 55.3 kg Body Mass Index 23.0 - Constitutional Present: no acute distress, well nourished, well developed - Routine HEENT Exam Eye: Present: EOMI ENT: Present: mucous membranes moist, dentition normal - Routine Respiratory Exam Present: CTA bilaterally (anteriorly), crackles (bilateral bases posteriorly). Absent: wheezes - Routine Cardiovascular Exam Present: RRR, S1, S2. Absent: murmur - Routine Abdominal Exam Present: soft, normoactive bowel sounds, non distended. Absent: tenderness - Routine Extremities Exam Present: normal capillary refill - Routine Back/Spine/Pelvis Exam Back/Spine: Present: full ROM - Routine Skin Exam Present: intact, dry, warm - Routine Neurological Exam Present: alert, oriented X3, CN II-XII intact - Routine Lymphatic Exam Lymphatic: Absent: adenopathy - Routine Psychiatric Exam Present: normal affect, normal thought process Results - Labs CBC & Chem 7: 04/19/17 04:55 04/19/17 04:55 Assessment and Plan (1) Respiratory failure with hypoxia Current visit: Yes Status: Acute (2) Hypernatremia Current visit: Yes Status: Acute (3) Hypokalemia Current visit: Yes Status: Acute (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 Current visit: Yes Status: Chronic (6) Pulmonary edema Current visit: Yes Status: Acute Assessment and Plan: Assessment Respiratory failure with hypoxia Pulmonary edema Hypernatremia (POA) Hypokalemia (POA) Thymoma Gastric adenocarcinoma 04/19/17-plan Appreciate consultation by multiple consultation specialists including Dr. Sulaiman Hooper and Dr. Daly. In today to cover her empirically with Rocephin for antimicrobial coverage. She does continue to require oxygen to maintain adequate saturations, which does meet her for inpatient criteria.. Will change patient at this time. Planning for pulmonary Bronchoscopy later today under the care of Dr. Daly. Will wait and give more Lasix and potassium supplementation following bronchoscopy procedure. Cardiogram did reveal an EF of 74%, with moderate to severe tricuspid regurgitation and severe pulmonary hypertension SCD for DVT prevention Recheck CBC and BMP tomorrow to follow blood counts, renal function and electrolytes Case discussed with attending, Dr. Guillen Sepsis Assessment - Evaluation Sepsis screening result: No Definite Risk Hospital Course Summary Disclaimer: The visit summary below is not to be considered part of the above Progress Note. Hospital Course: 04/18/17 admission Plan Patient outpatient observation under the care of Dr. Guillen for acute respiratory failure with hypoxia, hypernatremia with hypokalemia. Consultation placed to Dr. Hilario. 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 Consultations placed to both Dr. Watson and Dr. Daly as requested by oncology team for further evaluation of cardiomegaly and pulmonary status. Monitor patient. Cardiac telemetry An echocardiogram is ordered for further cardiac evaluation. Obtain CRP and ESR for laboratory completeness. Patient did recently complete a ten-day course of Cipro for antimicrobial coverage. Will cover patient with IV Rocephin as there is some question regarding pulmonary infiltrates. She was given a one-time dose of 40 milligrams of IV Lasix as well as oral potassium supplementation. Oxygen therapy to maintain adequate saturations. SCDs to bilateral lower extremity for DVT prophylaxis. We did discuss advanced directives and patient does verbalize her wish to be a do not resuscitate Will discuss further orders and plan of care with attending, Dr. Callejas. At time of discharge medical care will return to primary care provider Nicole Gavin at [facility] 04/19/17-plan Appreciate consultation by multiple consultation specialists including Dr. Watson, Dr. Hilario and Dr. Daly. In today to cover her empirically with Rocephin for antimicrobial coverage. She does continue to require oxygen to maintain adequate saturations, which does meet her for inpatient criteria.. Will change patient at this time. Planning for pulmonary Bronchoscopy later today under the care of Dr. Daly. Will wait and give more Lasix and potassium supplementation following bronchoscopy procedure. Cardiogram did reveal an EF of 74%, with moderate to severe tricuspid regurgitation and severe pulmonary hypertension SCD for DVT prevention Recheck CBC and BMP tomorrow to follow blood counts, renal function and electrolytes Case discussed with attending, Dr. Guillen <Ayaan Guillen D - Last Filed: 04/19/17 13:26> Objective Vital signs: Temperature 95.8 F L 04/19/17 07:30 Pulse Rate 76 04/19/17 07:30 Respiratory Rate 20 04/19/17 07:30 Blood Pressure 114/69 04/19/17 07:30 Pulse Oximetry 93 04/19/17 07:30 Results - Labs CBC & Chem 7: 04/19/17 04:55 04/19/17 04:55 Assessment and Plan (1) Respiratory failure with hypoxia Current visit: Yes Status: Acute (2) Pulmonary edema Current visit: Yes Status: Acute (3) Hypernatremia Current visit: Yes Status: Acute (4) Hypokalemia Current visit: Yes Status: Acute (5) Thymoma Current visit: Yes Status: Chronic (6) Gastric adenocarcinoma Problem details: Recently Dx. Current visit: Yes Status: Chronic DVT Prophylaxis: SCD's Resuscitation Status: Do Not Resuscitate Assessment and Plan: Assessment Respiratory failure with hypoxia Pulmonary edema Mod/Severe pulmonary hypertension Right ventricular dilation with global hypokinesis Hypernatremia (POA) Hypokalemia (POA) Thymoma Gastric adenocarcinoma Have independently interviewed and examined pt. Chart reviewed. Case discussed with Dr Daly and my GRADER MARKER. Care plan developed with my supervision; agree with above. Feeling better today. Less SOA. Slept well last night. Has been up walking in halls this morning-less winded, but needing O2 to help maintain saturation. No cough. No palpitations. Does feel hungry (NPO for bronch this afternoon). Is worried and emotional about her underlying cancer. Lungs: decreased, scattered crackles. No distress with O2 CV: regular AB: soft nt/nd +BS EXT: no edema, SCD in place MSE: awake alert appropriate. Communicates well. Thoughts linear. Plan: Inpatient admission due to pulmonary edema causing hypoxia (room air sats 77% needing 4L O2 to improve). Bronch later today by pulm. Will give oral potassium once patient recovered from bronchoscopy. With pulm HTN and right heart hypokinesis, need to be cautious with diuretics as could decrease filling pressure and cause hypotension/renal impairment. Hold on any diuretics currently as pt NPO. Continue with supplemental O2. Continue activities. Monitor lab. Time spent with patient care 25 minutes. Emotional support given. - Time spent with patient 25 - 35 minutes Hospital Course Summary Disclaimer: The visit summary below is not to be considered part of the above Progress Note.
[2017-04-19] MEDS: MULTIVITAMIN PO SCH (12:14)
[2017-04-19] MEDS: FISH OIL PO SCH (12:14)
--- NOTE | 2017-04-19 13:30 | Progress Note ---
Oncology Subjective Getting ready to leave for bronchoscopy. States breathing better -"feel better" today. Denies pain. "Hungry." General: No fever, no night sweats Eyes: No redness, no pain, no diplopia ENT: No mouth sores, no trouble swallowing Cardiac: No chest pain no palpitations Pulmonary: + cough, + shortness of breath- "better", no wheezing Abdomen: No pain, no nausea vomiting, no diarrhea or constipation : No urgency, frequency, dysuria, or hematuria Musculoskeletal: No arthritis, no myalgias + weakness Neurological: No headaches, no focal weakness Skin: No rash, no sores Psychiatric: No anxiety, no depression <Patsy Elaine L - 04/19/17 15:29> Exam Vital signs: Temperature 98.1 F 04/19/17 15:17 Pulse Rate 77 04/19/17 15:18 Respiratory Rate 24 04/19/17 15:17 Blood Pressure 124/68 04/19/17 15:17 Pulse Oximetry 94 04/19/17 15:17 Oxygen Delivery Method Nasal Cannula Oxygen Flow Rate 4 <Markus Hilario - 04/27/17 08:54> Temperature 95.8 F L 04/19/17 07:30 Pulse Rate 76 04/19/17 07:30 Respiratory Rate 20 04/19/17 07:30 Blood Pressure 114/69 04/19/17 07:30 Pulse Oximetry 93 04/19/17 07:30 <Patsy Elaine L - 04/19/17 13:30> - Constitutional no acute distress, well nourished, well developed <Patsy Elaine - 04/19/17 15:29> - Routine HEENT Exam Head: Present: normocephalic <Patsy Elaine - 04/19/17 15:29> Eye: Present: EOMI, PERRL, conjunctivae pink <Patsy Elaine - 04/19/17 15:29> ENT: Present: mucous membranes moist <Patsy Elaine - 04/19/17 15:29> - Routine Neck Exam Present: supple. Absent: lymphadenopathy, tenderness <Patsy Elaine - 15:29> - Routine Respiratory Exam Present: crackles. Absent: accessory muscle use, wheezes <Patsy Elaine - 15:29> Comments: crackles bibasilar <Patsy Elaine - 04/19/17 15:29> - Routine Cardiovascular Exam Present: RRR. Absent: no murmur, gallop <Patsy Elaine - 04/19/17 15:29> - Routine Abdominal Exam Present: soft, normoactive bowel sounds. Absent: non distended <Patsy Elaine 04/19/17 15:29> - Routine Extremities Exam Absent: no edema, tenderness <Patsy Elaine 04/19/17 15:29> - Routine Back/Spine/Pelvis Exam Back/Spine: Absent: paraspinal tenderness <Patsy Elaine 04/19/17 15:29> - Routine Skin Exam Present: intact, dry, warm <Patsy Elaine 04/19/17 15:29> - Routine Neurological Exam Present: alert, oriented X3, moving all extremities <Patsy Elaine 15:29> - Routine Psychiatric Exam Present: normal affect, normal thought process, good judgment <Patsy Elaine 04/19/17 15:29> Oncology Results - Labs CBC & Chem 7: 04/27/17 04:06 04/27/17 04:06 <Markus Hilario - 04/27/17 08:54> Assessment and Plan Assessment and Plan: Discussed with Dr. Elliott. She has pulmonary hypertension with right heart failure. She is having bronchoscopy at present time by Dr. Daly. Will await bronchoscopy findings and consider chemotherapy if this is metastatic gastric cancer early next week. Patient examined in post bronch recovery. Discussed with Dr. Daly. Await path. Agree with documentation by Karyna Elaine and I participated in the development of the plan of care of this patient. <Markus Hilario - 04/27/17 08:54> 1. Elevated BNP and shortness of breath suggestive of congestive heart failure currently better after Lasix. CT scan does show small pericardial effusion will evaluate with echocardiogram. 2. Gastric cancer shown on recent biopsy HER-2 testing is currently pending. It was 1+ on IHC with fish being pending. I am concerned that she has metastatic disease to the left supraclavicular lymph node and would consider biopsy to confirm this if further biopsies do not confirm metastatic disease 3. Thymoma present anterior mediastinum found on needle biopsy 4. 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 With 3 negative AFB smears at via [facility] March 2017 5. Pulmonary infiltrates with appearance of a air bronchogram and infiltrates around the bronchus along with other areas that appeared nodular and more infectious or lymphangitic spread of carcinoma. Will consult Dr. Daly for consideration of bronchoscopy and biopsy to confirm diagnosis of etiology of infiltrates. Recommendations Cardiology consultation Echocardiogram Pulmonary consultation Consider bronchoscopy Diuresis Staging of gastric cancer to determine best treatment Continue supportive care. Await bronchosocpy/pathology results. <Patsy Elaine 04/19/17 15:29> - Time Spent With Patient Total time spent is greater than 50% in coordination of care (as documented) at patient's floor/unit and/or counseling patient: <Markus Hilario - 04/27/17 08:54> Total time spent is greater than 50% in coordination of care (as documented) at patient's floor/unit and/or counseling patient: <Patsy Elaine 04/19/17 13:30> 25 - 35 minutes <Markus Hilario - 04/27/17 08:54> less than 15 minutes <Patsy Elaine 04/19/17 15:29> Sepsis Assessment - Evaluation Sepsis screening result: No Definite Risk <Patsy Elaine 04/19/17 13:30>
[2017-04-19] MEDS ORDERED: LACRI-LUBE EYE OINT 3.5gm ONE (15:18)
[2017-04-19] MEDS ORDERED: LIDOCAINE 1% (10mg/ml) 30ml SDV INJ ONE (15:19)
[2017-04-19] MEDS: SALINE FLUSH 10ml SYRINGE IVF PRN (15:21)
[2017-04-19] MEDS ORDERED: LR 1,000 ML IV SCH (15:30)
--- NOTE | 2017-04-19 15:39 | Anesthesia Preoperative Report ---
Anesthesia Preoperative Record - Date and Time Date: 04/19/17 Preoperative Diagnosis: Dysnea Proposed Procedure: bronchoscopy NPO Since Date: 04/18/17 NPO Since Time: 23:00 Allergies/Adverse Reactions: Allergies Allergy/AdvReac Type Severity Reaction Status Date / Time No Known Allergies Allergy Verified 04/18/17 13:38 - Vital Signs Vital Signs: Temperature 98.1 F 04/19/17 15:17 Pulse Rate 77 04/19/17 15:18 Respiratory Rate 24 04/19/17 15:17 Blood Pressure 124/68 04/19/17 15:17 Pulse Oximetry 94 04/19/17 15:17 Oxygen Delivery Method Nasal Cannula Oxygen Flow Rate 4 - Medications Inpatient Medications: Current Medications Acetaminophen (Tylenol) 650 mg PO Q5H PRN PRN Reason: Discomfort Ceftriaxone Sodium 1 g/ Sodium (Chloride) 100 mls @ 200 mls/hr IV Q24H [facility] Last Infusion: 04/18/17 17:10 Dose: Infused Lactated Ringer's (Lactated Ringers) 1,000 mls @ 75 mls/hr IV .[id number] [facility] Last Admin: 04/19/17 15:21 Dose: 75 mls/hr Magnesium Hydroxide (Mom) 30 ml PO DAILY PRN PRN Reason: Constipation Ilmuo-1-Ghhx Ethyl Esters (Lovaza) 1 gm PO DAILY [facility] Last Admin: 04/19/17 12:14 Dose: Not Given Ondansetron HCl (Zofran) 4 mg IVP Q6H PRN PRN Reason: Nausea Pneumococcal 7-Valent Conj Vacc (Prevnar 13) 0.5 ml IM .ONCE ONE Stop: 04/20/17 12:01 Polyethylene Glycol (Miralax) 17 gm PO DAILY PRN PRN Reason: Constipation Prenat Multivit/Kismet/Iron/Folic Ac (Roque ) 1 tab PO DAILY [facility] Last Admin: 04/19/17 12:14 Dose: Not Given Sodium Chloride (Iv Flush) 10 - 80 ml IVF PRN PRN PRN Reason: Flushing Last Admin: 04/19/17 15:21 Dose: 10 ml Sodium Chloride (Normal Saline) 500 ml IV PRN PRN Last Admin: 04/18/17 16:48 Dose: 500 ml Home Medications: Home Medications Medication Instructions Recorded Confirmed Type Calcium Carbonate/Vitamin D3 1 tab PO DAILY 04/10/17 04/18/17 History [Calcium 600-Vit D3 2,500 Sftgl] Ciprofloxacin [Cipro] 500 mg PO BID 04/10/17 04/18/17 History Multivit,Calc,Mins/Iron/Folic 1 each PO DAILY 04/10/17 04/18/17 History [Women's Daily Caplet] Campo-3 Fatty Acids/Fish Oil [Fish 1 cap PO DAILY 04/10/17 04/18/17 History Oil 1,200 mg Softgel] - Medical History Respiratory: Reports: Other (mass on right lung, o2 at night and prn ) - Surgical History HEENT Surgeries: Reports: Other (NODULE L NECK/CLAVICLE) Respiratory Surgery/Treatments: Reports: Oxygen Administration (wears 2 L at night) GI Surgery/Treatments: Reports: Colonoscopy (5 years ago February 2012), EGD () Anesthesia Reactions: None Hx Family Anesthesia Reaction: No - Social History Smoking Status: Never smoker - Pertinent Findings EKG Rhythm: Normal Sinus Rhythm - Physical Exam Respiratory Exam: Present: lungs clear, bilateral breath sounds equal Cardiovascular Exam: Present: regular rate and rhythm, no murmur - Airway Assessment Mallampati Score: III TMD: 2 Fingerbreadths Neck Extension: fair Teeth: patial upper dentures, partial lower dentures Overall Assessment: may be difficult intubation - ASA ASA Score: 3 - Plan Anesthesia: General Inhalation Gases - Discussion Discussion: Discussed risks/options/alternatives of anesthesia and questions answered. Patient consents. Nursing pain assessment noted. Attestation Statement: Prior to the delivery of any anesthetic medication, I examined the patient, developed the plan, obtained the patient's consent and discussed the risk and benefits of the procedure with the patient/guardian.
[2017-04-19] MEDS ORDERED: ROCURONIUM 50 MG/5 ML INJECTION IVP ONE (15:53)
[2017-04-19] MEDS ORDERED: FentaNYL 100 MCG/2 ML INJECTION ONE (15:53)
[2017-04-19] MEDS ORDERED: MIDAZOLAM 2mg/2ml INJECTION ONE (15:53)
[2017-04-19] MEDS ORDERED: PROPOFOL 20 ML ONE (15:53)
--- NOTE | 2017-04-19 16:40 | Cardiology Progress Note ---
Subjective Principal diagnosis: dyspnea <AnthonyiAbida L - 04/19/17 16:40> Interval history: Mrs. Schneider was resting well in bed upon exam. She reports breathing easier since getting lasix. Ambulating in the halls with PT, tolerating well. Bronchoscopy planned later today. <AnthonyiUzmaAbida L - 04/19/17 21:45> Exam Vital signs: Temperature 97.0 F 04/22/17 11:41 Pulse Rate 94 04/22/17 11:41 Respiratory Rate 20 04/22/17 11:41 Blood Pressure 95/66 04/22/17 11:41 Pulse Oximetry 94 04/22/17 13:27 Oxygen Delivery Method Nasal Cannula Oxygen Flow Rate 4 <Sarthak Watson - 04/22/17 13:34> Temperature 98.1 F 04/19/17 15:17 Pulse Rate 77 04/19/17 15:18 Respiratory Rate 24 04/19/17 15:17 Blood Pressure 124/68 04/19/17 15:17 Pulse Oximetry 94 04/19/17 15:17 Oxygen Delivery Method Nasal Cannula Oxygen Flow Rate 4 <AnthonyiAbida L - 04/19/17 16:40> - Constitutional no acute distress <MckenzienliAbida L - 04/19/17 21:45> - Routine HEENT Exam Head: Present: normocephalic, atraumatic <MckenzienliAbida L - 04/19/17 21:45> Eye: Present: PERRL, conjunctivae pink <MckenzienliAbida L - 04/19/17 21:45> ENT: Present: mucous membranes moist <MckenzienliAbida L - 04/19/17 21:45> - Routine Neck Exam Present: supple. Absent: JVD, carotid bruit <MckenzienliAbida L - 04/19/17 21: 45> - Routine Respiratory Exam Present: diminished air movement <Wernli,Abida L - 04/19/17 21:45> - Routine Cardiovascular Exam Present: RRR <Mckenzienli,Abida L - 04/19/17 21:45> - Routine Abdominal Exam Present: soft, normoactive bowel sounds <WernliAbida L - 04/19/17 21:45> - Routine Extremities Exam Present: no edema <Abida Wright - 04/19/17 21:45> - Routine Back/Spine/Pelvis Exam Back/Spine: Present: full ROM <Abida Wright - 04/19/17 21:45> - Routine Skin Exam Present: intact, dry <Abida Wright - 04/19/17 21:45> - Routine Neurological Exam Present: alert, oriented X3 <Abida Wright - 04/19/17 21:45> - Routine Psychiatric Exam Present: normal affect, normal thought process, cooperative <Abida Wright - 04/19/17 21:45> - Additional findings Additional findings: IMPRESSION 1. Normal LV systolic function with ejection fraction of 74%. 2. Left ventricular hypertrophy. 3. Right atrial dilation. 4. Right ventricular dilation with global hypokinesia. 5. Mild mitral regurgitation. 6. Ygwzjtis-ut-reryot tricuspid regurgitation with severe pulmonary hypertension with estimated pulmonary artery systolic pressure of 72. 7. Mild pulmonary insufficiency. <Abida Wright - 04/19/17 21:45> Progress Note-A&P (1) Respiratory failure with hypoxia Status: Acute Current Visit: Yes (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 Status: Chronic Current Visit: Yes (4) Encounter for preprocedural cardiovascular examination Status: Acute Current Visit: Yes (5) Abnormal electrocardiogram Status: Acute Current Visit: Yes (6) Pulmonary edema Status: Acute Current Visit: Yes (7) Pulmonary hypertension Status: Acute Current Visit: Yes <NarcisalibertadSarthak maloney - 04/22/17 13:34> (1) Pulmonary hypertension Status: Acute Assessment and plan: pa pressures on echo 72mmhg Current Visit: Yes (2) Respiratory failure with hypoxia Status: Acute Current Visit: Yes (3) Thymoma Status: Chronic Current Visit: Yes (4) Gastric adenocarcinoma Problem details: Recently Dx. Status: Chronic Current Visit: Yes (5) Encounter for preprocedural cardiovascular examination Status: Acute Current Visit: Yes (6) Abnormal electrocardiogram Status: Acute Current Visit: Yes (7) Pulmonary edema Status: Acute Assessment and plan: pt reports ease of breathing after lasix, vitals stable. Current Visit: Yes <Abida Wright - 04/19/17 21:47> - Time Spent With Patient Total time spent is greater than 50% in coordination of care (as documented) at patient's floor/unit and/or counseling patient: <Sarthak Watson - 04/22/17 13:34> Total time spent is greater than 50% in coordination of care (as documented) at patient's floor/unit and/or counseling patient: <Abida Wright - 04/19/17 16:40> less than 15 minutes <Abida Wright - 04/19/17 21:45> - Attestation Attestation Narrative: Recommendation After examining the patient I agree with the above assessment. I am involved in the formulation of the patient's plan of care. <Sarthak Watson - 04/22/17 13:34> Sepsis Assessment - Evaluation Sepsis screening result: No Definite Risk <Abida Wright - 04/19/17 16:40> Hospital Course Summary Disclaimer: The visit summary below is not to be considered part of the above Progress Note. <Sarthak Watson - 04/22/17 13:34> The visit summary below is not to be considered part of the above Progress Note. <Abida Wright - 04/19/17 16:40> Hospital Course: 04/18/17 admission Plan Patient outpatient observation under the care of Dr. Guillen for acute respiratory failure with hypoxia, hypernatremia with hypokalemia. Consultation placed to Dr. Hilario. 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 Consultations placed to both Dr. Watson and Dr. Daly as requested by oncology team for further evaluation of cardiomegaly and pulmonary status. Monitor patient. Cardiac telemetry An echocardiogram is ordered for further cardiac evaluation. Obtain CRP and ESR for laboratory completeness. Patient did recently complete a ten-day course of Cipro for antimicrobial coverage. Will cover patient with IV Rocephin as there is some question regarding pulmonary infiltrates. She was given a one-time dose of 40 milligrams of IV Lasix as well as oral potassium supplementation. Oxygen therapy to maintain adequate saturations. SCDs to bilateral lower extremity for DVT prophylaxis. We did discuss advanced directives and patient does verbalize her wish to be a do not resuscitate Will discuss further orders and plan of care with attending, Dr. Callejas. At time of discharge medical care will return to primary care provider Nicole Gavin at [facility] 04/19/17-plan Appreciate consultation by multiple consultation specialists including Dr. aWtson, Dr. Hilario and Dr. Daly. In today to cover her empirically with Rocephin for antimicrobial coverage. She does continue to require oxygen to maintain adequate saturations, which does meet her for inpatient criteria.. Will change patient at this time. Planning for pulmonary Bronchoscopy later today under the care of Dr. Daly. Will wait and give more Lasix and potassium supplementation following bronchoscopy procedure. Cardiogram did reveal an EF of 74%, with moderate to severe tricuspid regurgitation and severe pulmonary hypertension SCD for DVT prevention Recheck CBC and BMP tomorrow to follow blood counts, renal function and electrolytes Case discussed with attending, Dr. Guillen <Abida Wright - 04/19/17 21:45>
[2017-04-19] MEDS ORDERED: EPHEDRINE 50mg/ml INJECTION ONE (16:42)
[2017-04-19] MEDS ORDERED: SALINE FLUSH 10ml SYRINGE ONE (16:42)
[2017-04-19] MEDS ORDERED: SUGAMMADEX 200mg/2ml INJECTION IVP ONE (16:59)
--- NOTE | 2017-04-19 17:12 | Procedure Note ---
Date of procedure: 04/19/17 Pre-op diagnosis: abnormal CT chest Post-op diagnosis: same Procedure: bronchoscopy with Tbbx, BAL, [place]. FOB was passed via the endotracheal tube. The main chanda was normal. Left main, SARAH, LLL bronchi were normal. Right Main, RUL, Bronchus Intermedius, RML, RLL were normal. Transbronchial biopsies were performed from the RLL. Brushings were performed from the RLL. BAL was performed from the RLL. There were no immediate complications. Stat PCXR was ordered. Anesthesia: GETA Surgeon: Matt Daly MD Estimated blood loss (mL): 0 Pathology: other (transbronchial biopsies for histopath, brush for cytopath, BAL for cytopath) Condition: Stable Disposition: floor
[2017-04-19] MEDS: CEFTRIAXONE 1 G in NS 100 ML IV SCH (18:18)
--- NOTE | 2017-04-19 19:25 | XRay Report ---
Indication: post bronchoscopy rule out PTX right side biopsy PROCEDURE: XR chest post-procedure 1V: Encounter: Initial Comparison: CT angiogram of the chest dated April 18, 2017 Findings: No visible pneumothorax. Continued increased interstitial markings with more confluent consolidation in the right middle lobe. Heart size and mediastinal contours are stable. Impression: No visible pneumothorax. .
[2017-04-20] MEDS: FISH OIL PO SCH (10:09)
[2017-04-20] MEDS: MULTIVITAMIN PO SCH (10:09)
[2017-04-20] MEDS ORDERED: PNEUMOCOCCAL VAC ADMIN CHARGE INJ ONE (11:40)
--- NOTE | 2017-04-20 11:58 | Progress Note ---
<Dedra Alcocer - Last Filed: 04/20/17 11:50> Subjective: Carson reports that she is breathing better today. She actually feels quite a bit better. She was down to 3 L earlier this morning, but became little bit hypoxic and oxygen was increased back up to 4 L. She has been able to do some of her activities of daily living, such as a sponge bath, brushing her teeth, and walking to and from the bathroom. She denies any exertional dyspnea with these activities. She has not had any pain. She denies any abdominal pain. She states that her bowels moving. She states that she has a large appetite today. She denies any mouth sores or evidence of thrush. We spent some time reviewing labs and imaging reports, as well as pending studies. Objective Vital signs: Temperature 97.5 F 04/20/17 11:00 Pulse Rate 75 04/20/17 11:00 Respiratory Rate 18 04/20/17 11:00 Blood Pressure 111/69 04/20/17 11:00 Pulse Oximetry 94 04/20/17 11:00 Oxygen Delivery Method Nasal Cannula Oxygen Flow Rate 4 Rhythm: Normal Sinus Rhythm Height/Weight/BMI: Weight 55.3 kg - Constitutional Present: no acute distress, well nourished, well developed, thin - Routine HEENT Exam Eye: Absent: conjunctival icterus, scleral injection ENT: Present: mucous membranes moist, oropharynx clear - Routine Respiratory Exam Present: crackles (bilateral bases) - Routine Cardiovascular Exam Present: RRR, S1, S2 - Routine Abdominal Exam Present: soft, normoactive bowel sounds, non distended, non tender - Routine Extremities Exam Present: no edema, pulses intact, normal capillary refill. Absent: cyanosis, clubbing - Routine Back/Spine/Pelvis Exam Back/Spine: Present: full ROM. Absent: paraspinal tenderness, vertebral tenderness - Routine Musculoskeletal Exam Musculoskeletal: Present: no clubbing or cyanosis, moving extremities well - Routine Skin Exam Present: intact, dry, warm - Routine Neurological Exam Present: alert, oriented X3, CN II-XII intact, vision grossly intact, hearing grossly intact, normal speech - Routine Psychiatric Exam Present: normal affect, normal thought process, cooperative Results - Labs CBC & Chem 7: 04/20/17 05:12 04/20/17 05:12 Microbiology Results: Microbiology 04/19/17 16:55 Bal, Right Lower Lobe Bronchial Aspirate Culture - Preliminary Culture Initiated - Results Pending Assessment and Plan (1) Respiratory failure with hypoxia Current visit: Yes Status: Acute (2) Hypernatremia Current visit: Yes Status: Acute (3) Hypokalemia Current visit: Yes Status: Resolved (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 Current visit: Yes Status: Chronic (6) Pulmonary edema Current visit: Yes Status: Acute DVT Prophylaxis: SCD's Resuscitation Status: Do Not Resuscitate Assessment and Plan: Assessment Respiratory failure with hypoxia Pulmonary edema Moderate to Severe tricuspid regurgitation with severe pulmonary hypertension, PA pressure of 72 Right ventricular dilation with global hypokinesis. Mild mitral regurgitation. LVH. Normal LV systolic function with EF of 74%. Hypernatremia (POA) Hypokalemia (POA) - resolved Thymoma Gastric adenocarcinoma Elevated liver enzymes and hyperbilirubinemia - resolved Plan Ongoing respiratory therapy with hypoxia; needing 4L of oxygen Labs reviewed: Liver enzymes are back to normal. Potassium level has improved to 3.7. Renal function is stable. Sodium is still slightly high at 147. Waiting on results of bronchial washing and cytology; staging of gastric adenocarcinoma. Appreciate multiple consultants. Lasix 40 mg IV was given on 04/18 - cardiology has recommended gentle diuresis with 20 mg of IV Lasix daily. We'll discuss further with attending. Continues on Rocephin 1 gm daily since 04/18/17. ?DC abx. CODE STATUS discussed. She again reiterates DO NOT RESUSCITATE wish, as quality of life is more important to her. Sepsis Assessment - Evaluation Sepsis screening result: No Definite Risk Hospital Course Summary Disclaimer: The visit summary below is not to be considered part of the above Progress Note. Hospital Course: 04/18/17 admission Patient outpatient observation under the care of Dr. Guillen for acute respiratory failure with hypoxia, hypernatremia with hypokalemia. Consultations placed to Dr. Hilario, Dr. Watson and Dr. Daly An echocardiogram is ordered for further cardiac evaluation. Obtain CRP and ESR for laboratory completeness. Patient did recently complete a ten-day course of Cipro for antimicrobial coverage. Will cover patient with IV Rocephin as there is some question regarding pulmonary infiltrates. She was given a one-time dose of 40 milligrams of IV Lasix as well as oral potassium supplementation. Oxygen therapy to maintain adequate saturations. 04/19/17-plan Appreciate consultation by multiple consultation specialists including Dr. Watson, Dr. Hilario and Dr. Daly. She does continue to require oxygen to maintain adequate saturations, which does meet her for inpatient criteria.. Will change patient at this time. Bronchoscopy done per Dr. Daly; BAL washing sent. Echo reveal an EF of 74%, with moderate to severe tricuspid regurgitation and severe pulmonary hypertension 04/20/17 Ongoing respiratory therapy with hypoxia; needing 4L of oxygen Liver enzymes are back to normal. Potassium level has improved to 3.7. Renal function is stable. Sodium is still slightly high at 147. Waiting on results of bronchial washing and cytology; staging of gastric adenocarcinoma. Appreciate multiple consultants. Lasix 40 mg IV was given on 04/18 - cardiology has recommended gentle diuresis with 20 mg of IV Lasix daily. We'll discuss further with attending. Continues on Rocephin 1 gm daily since 04/18/17. ?DC abx <Ayaan Guillen D - Last Filed: 04/20/17 14:30> Objective Vital signs: Temperature 97.5 F 04/20/17 11:00 Pulse Rate 75 04/20/17 11:00 Respiratory Rate 18 04/20/17 11:00 Blood Pressure 111/69 04/20/17 11:00 Pulse Oximetry 94 04/20/17 11:00 Oxygen Delivery Method Nasal Cannula Oxygen Flow Rate 4 Height/Weight/BMI: Weight 55.3 kg Results - Labs CBC & Chem 7: 04/20/17 05:12 04/20/17 05:12 Microbiology Results: Microbiology 04/19/17 16:55 Bronchial Washing Acid Fast Bacilli Culture & Smear - Preliminary 04/19/17 16:55 Bal, Right Lower Lobe Gram Stain - Final 04/19/17 16:55 Bal, Right Lower Lobe Bronchial Aspirate Culture - Preliminary Culture Initiated - Results Pending Assessment and Plan (1) Respiratory failure with hypoxia Current visit: Yes Status: Acute (2) Pulmonary edema Current visit: Yes Status: Acute (3) Hypernatremia Current visit: Yes Status: Acute (4) Hypokalemia Current visit: Yes Status: Resolved (5) Thymoma Current visit: Yes Status: Chronic (6) Gastric adenocarcinoma Problem details: Recently Dx. Current visit: Yes Status: Chronic Assessment and Plan: Assessment Respiratory failure with hypoxia Pulmonary edema Moderate to Severe tricuspid regurgitation with severe pulmonary hypertension, PA pressure of 72 Right ventricular dilation with global hypokinesis. Mild mitral regurgitation. LVH. Normal LV systolic function with EF of 74%. Hypernatremia (POA) Hypokalemia (POA) - resolved Thymoma Gastric adenocarcinoma Elevated liver enzymes and hyperbilirubinemia - resolved Have independently interviewed and examined pt. Chart reviewed. 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 Care plan developed with my supervision; agree with above. Doing well today-feels breathing easier. Not SOA or congested. No cough. No pain with breathing. Still needing 3L of O2 to maintain saturations. Eating well. No ab pain or nausea. Ambulating without feeling lightheaded or dizzy. Lungs: decreased, rare crackle; no distress on O2. CV: regular AB; soft nt/nd +BS MSE: awake alert appropriate Plan: Will start Lasix 20mg po daily for pulmonary edema-monitor for hypotension /orthostasis/elevating creatinine due to right heart dysfunction. Oral potassium 10mEq daily due to Lasix use. Continue Rocephin. Encourage ambulation. Monitor lab. Hospital Course Summary Disclaimer: The visit summary below is not to be considered part of the above Progress Note.
[2017-04-20] MEDS ORDERED: PNEUMOCOCCAL 13 VACCINE 0.5ml INJECTION IM ONE (12:00)
--- NOTE | 2017-04-20 12:35 | Anesthesia Postoperative Note ---
- Date and Time Date: 04/20/17 Time: 12:30 - Status Patient Participated in Evaluation: Patient Participated in Person Vital Signs: Temperature 97.5 F 04/20/17 11:00 Pulse Rate 75 04/20/17 11:00 Respiratory Rate 18 04/20/17 11:00 Blood Pressure 111/69 04/20/17 11:00 Pulse Oximetry 94 04/20/17 11:00 Oxygen Delivery Method Nasal Cannula Oxygen Flow Rate 4 Respiratory Function: Airway Patent Cardiovascular Function: Regular Pulse Mental Status: Alert and Oriented Pain Intensity: 0 Hydration: Taking PO Fluids Complications During Recover: None Apparent - Follow-Up Instructions Instructions: Per Surgeon
[2017-04-20] MEDS: FUROSEMIDE 20 MG TABLET PO SCH (14:32)
[2017-04-20] MEDS: SALINE FLUSH 10ml SYRINGE IVF PRN (14:32)
[2017-04-20] MEDS: CEFTRIAXONE 1 G in NS 100 ML IV SCH (14:32)
--- NOTE | 2017-04-20 19:31 | Progress Note ---
Oncology Subjective Remains stable on o2. She is up walking with O2 on. She would like to go home and f/u with Dr. Hilario as out patient. Exam Vital signs: Temperature 97.3 F 04/20/17 14:28 Pulse Rate 80 04/20/17 15:59 Respiratory Rate 18 04/20/17 14:28 Blood Pressure 118/68 04/20/17 14:28 Pulse Oximetry 95 04/20/17 18:59 Oxygen Delivery Method Nasal Cannula Oxygen Flow Rate 4 - Constitutional no acute distress, well nourished - Routine Neck Exam Comments: Left cervical LN, small mobile. - Routine Respiratory Exam Absent: respiratory distress, rhonchi, stridor, wheezes - Routine Cardiovascular Exam Present: RRR - Routine Abdominal Exam Present: soft, normoactive bowel sounds, non tender. Absent: organomegaly Oncology Results - Labs CBC & Chem 7: 04/20/17 05:12 04/20/17 05:12 Labs: Short CBC 04/20/17 Range/Units 05:12 WBC 9.1 (4.5-11.0) T/MM3 Hgb 13.1 (12-16) GM/DL Hct 41.0 (36-46) % Plt Count 163 (130-400) T/MM3 BMP 04/20/17 05:12 Sodium 147 H Potassium 3.7 Chloride 107 Carbon Dioxide 27 BUN 14.0 Creatinine 0.7 Glucose 142 H Calcium 9.1 Liver Function 04/20/17 Range/Units 05:12 Total Bilirubin 1.30 (0.20-1.30) MG/DL AST 32 (14-36) U/L ALT 40 (9-52) U/L Alkaline Phosphatase 82 (38-126) U/L Albumin 3.7 (3.5-5.0) G/DL Assessment and Plan Assessment and Plan: A/P: 1- Thymoma. 2- Stomach cancer undergoing work-up. will need left SCV LN biopsy for staging. 3- SOB s/p bronchoscopy, hx of PPD positive: lung infiltrates; lymphangetic spread vs infectious or cardiac. F/U on pathology and bronch result to determine further management. - Time Spent With Patient Total time spent is greater than 50% in coordination of care (as documented) at patient's floor/unit and/or counseling patient: less than 15 minutes Sepsis Assessment - Evaluation Sepsis screening result: No Definite Risk
[2017-04-21] MEDS: FUROSEMIDE 20 MG TABLET PO SCH (08:30)
[2017-04-21] MEDS: FISH OIL PO SCH (08:30)
[2017-04-21] MEDS: MULTIVITAMIN PO SCH (08:30)
--- NOTE | 2017-04-21 11:54 | Progress Note ---
Subjective: F/U: Respiratory failure with hypoxia Feeling better. Breathing easier with O2-O2 needs still high (4-6L). Notes some chest congestion and cough; not able to mobilize any sputum. No pain with breathing. No f/c. Eating well without nausea or ab pain. Stools moving. No palpitations or chest pain. Not dizzy or unsteady when up. Trying to walk often to maintain strength. Objective Vital signs: Temperature 98.8 F 04/21/17 11:31 Pulse Rate 78 04/21/17 11:31 Respiratory Rate 16 04/21/17 11:31 Blood Pressure 108/65 04/21/17 11:31 Pulse Oximetry 91 04/21/17 11:31 Oxygen Delivery Method Nasal Cannula Oxygen Flow Rate 4 Rhythm: Normal Sinus Rhythm Height/Weight/BMI: Weight 54.7 kg - Constitutional Present: well nourished, well developed, cooperative - Routine HEENT Exam Head: Present: normocephalic, atraumatic Eye: Present: EOMI, PERRL ENT: Present: mucous membranes moist (No thrush ) - Routine Respiratory Exam Present: decreased breath sounds, diminished air movement. Absent: rhonchi, wheezes, crackles - Routine Cardiovascular Exam Present: RRR, no murmur - Routine Abdominal Exam Present: soft, normoactive bowel sounds, non distended, non tender - Routine Extremities Exam Present: clubbing (fingernails bilaterally ), no edema, pulses intact. Absent: cyanosis - Routine Musculoskeletal Exam Musculoskeletal: Present: normal strength, no joint swelling - Routine Skin Exam Present: intact, warm, normal turgor - Routine Neurological Exam Present: alert, oriented X3, CN II-XII intact, vision grossly intact, hearing grossly intact. Absent: motor deficit - Routine Psychiatric Exam Present: normal affect, normal thought process, cooperative, good insight, good judgment Results - Labs CBC & Chem 7: 04/21/17 05:01 04/21/17 05:01 Microbiology Results: Microbiology 04/19/17 16:55 Bal, Right Lower Lobe Gram Stain - Final 04/19/17 16:55 Bal, Right Lower Lobe Bronchial Aspirate Culture - Preliminary Early growth 04/19/17 16:55 Bronchial Washing Acid Fast Bacilli Culture & Smear - Preliminary Assessment and Plan (1) Respiratory failure with hypoxia Current visit: Yes Status: Acute (2) Pulmonary edema Current visit: Yes Status: Acute (3) Hypernatremia Current visit: Yes Status: Acute (4) Hypokalemia Current visit: Yes Status: Resolved (5) Thymoma Current visit: Yes Status: Chronic (6) Gastric adenocarcinoma Problem details: Recently Dx. Current visit: Yes Status: Chronic DVT Prophylaxis: SCD's Resuscitation Status: Do Not Resuscitate Assessment and Plan: Assessment Respiratory failure with hypoxia Pulmonary edema Moderate to Severe tricuspid regurgitation with severe pulmonary hypertension, PA pressure of 72. Right ventricular dilation with global hypokinesis. Mild mitral regurgitation. LVH. Normal LV systolic function with EF of 74%. Hypernatremia (POA) Hypokalemia (POA) - resolved Thymoma Gastric adenocarcinoma Elevated liver enzymes and hyperbilirubinemia - resolved Elevated blood sugars Plan Continue Rocephin for pulmonary coverage. Lasix 20mg po daily started yesterday for pulmonary edema-monitor for hypotension/orthostasis/elevating creatinine due to right heart dysfunction. Oral potassium 10mEq daily started due to Lasix use. Potassium and creatinine stable. Continue with supplemental O2, weaning as able. Encourage ambulation. Will recheck CXR in am to see if any changes. Uncertain if finding on CXR fluid , infection, of cancer. Monitor lab. Time spent with patient care 25 minutes. - Time spent with patient 25 - 35 minutes Sepsis Assessment - Evaluation Sepsis screening result: No Definite Risk Hospital Course Summary Disclaimer: The visit summary below is not to be considered part of the above Progress Note. Hospital Course: 04/18/17 Admission Patient outpatient observation under the care of Dr. Guillen for acute respiratory failure with hypoxia, hypernatremia with hypokalemia. Consultations placed to Dr. Hilario, Dr. Watson and Dr. Daly An echocardiogram is ordered for further cardiac evaluation. Obtain CRP and ESR for laboratory completeness. Patient did recently complete a ten-day course of Cipro for antimicrobial coverage. Will cover patient with IV Rocephin as there is some question regarding pulmonary infiltrates. She was given a one-time dose of 40 milligrams of IV Lasix as well as oral potassium supplementation. Oxygen therapy to maintain adequate saturations. 04/19/17 Appreciate consultation by multiple consultation specialists including Dr. Watson, Dr. Hilario and Dr. Daly. She does continue to require oxygen to maintain adequate saturations, which does meet her for inpatient criteria. Will change patient at this time. Bronchoscopy done per Dr. Daly; BAL washing sent. Echo reveal an EF of 74%, with moderate to severe tricuspid regurgitation and severe pulmonary hypertension. 04/20/17 Ongoing respiratory therapy with hypoxia; needing 4L of oxygen. Liver enzymes are back to normal. Potassium level has improved to 3.7. Renal function is stable. Sodium is still slightly high at 147. Waiting on results of bronchial washing and cytology; staging of gastric adenocarcinoma. Appreciate multiple consultants. Lasix 40 mg IV was given on 04/18 - cardiology has recommended gentle diuresis with 20 mg of IV Lasix daily. Continues on Rocephin 1 gm daily since 04/18/17. 04/21/17 Continue Rocephin for pulmonary coverage. Lasix 20mg po daily started yesterday for pulmonary edema-monitor for hypotension/orthostasis/elevating creatinine due to right heart dysfunction. Oral potassium 10mEq daily started due to Lasix use. Potassium and creatinine stable. Continue with supplemental O2, weaning as able. Encourage ambulation. Will recheck CXR in am to see if any changes. Uncertain if finding on CXR fluid , infection, of cancer. Monitor lab.
--- NOTE | 2017-04-21 13:04 | Progress Note ---
Oncology Subjective Feeling better today. Ambulatory in the hallway. She is a short of breath. He is on oxygen. Pathology report is still pending. Exam Vital signs: Temperature 98.8 F 04/21/17 11:31 Pulse Rate 78 04/21/17 11:31 Respiratory Rate 16 04/21/17 11:31 Blood Pressure 108/65 04/21/17 11:31 Pulse Oximetry 91 04/21/17 11:31 Oxygen Delivery Method Nasal Cannula Oxygen Flow Rate 4 - Constitutional no acute distress, well nourished, well developed, cooperative - Routine Neck Exam Comments: Left supraclavicular adenopathy, small, mobile. Nontender. - Routine Respiratory Exam Absent: rales, respiratory distress, rhonchi - Routine Cardiovascular Exam Present: RRR. Absent: murmur - Routine Abdominal Exam Present: soft, normoactive bowel sounds, non tender - Routine Extremities Exam Present: no edema. Absent: edema - Routine Neurological Exam Present: oriented X3, CN II-XII intact Oncology Results - Labs CBC & Chem 7: 04/21/17 05:01 04/21/17 05:01 Labs: Short CBC 04/21/17 Range/Units 05:01 WBC 8.9 (4.5-11.0) T/MM3 Hgb 11.8 L (12-16) GM/DL Hct 37.9 (36-46) % Plt Count 132 (130-400) T/MM3 [facility] 04/21/17 05:01 Sodium 145 H Potassium 3.8 Chloride 109 H Carbon Dioxide 26 BUN 15.0 Creatinine 0.7 Glucose 172 H Calcium 8.9 Assessment and Plan Assessment and Plan: A/P: 1- Thymoma. 2- Stomach cancer/adenocarcinoma undergoing work-up to determine extent of disease. will need left SCV LN biopsy for staging. 3- SOB s/p bronchoscopy, hx of PPD positive: lung infiltrates; lymphangetic spread vs infectious or cardiac. Breathing has improved. F/U on pathology and bronch result to determine further management. Dr. Hilario will see the patient in the morning for further recommendations and management. - Time Spent With Patient Total time spent is greater than 50% in coordination of care (as documented) at patient's floor/unit and/or counseling patient: less than 15 minutes Sepsis Assessment - Evaluation Sepsis screening result: No Definite Risk
[2017-04-21] MEDS: SALINE FLUSH 10ml SYRINGE IVF PRN ×2 (14:22→21:01)
[2017-04-21] MEDS: NS FLUSH BAG 500ml IV PRN (14:22)
[2017-04-21] MEDS: CEFTRIAXONE 1 G in NS 100 ML IV SCH (14:22)
[2017-04-21] MEDS: GUAIFENESIN LA 600 MG TABLET PO SCH ×2 (18:32→21:37)
[2017-04-22] MEDS: SALINE FLUSH 10ml SYRINGE IVF PRN (04:55)
--- NOTE | 2017-04-22 08:06 | Progress Note ---
Oncology Subjective Acetaminophen (Tylenol) 650 mg PO Q5H PRN PRN Reason: Discomfort Furosemide (Lasix) 20 mg PO DAILY [facility] Last Admin: 04/21/17 08:30 Dose: 20 mg Guaifenesin (Mucinex La) 600 mg PO BID [facility] Last Admin: 04/21/17 21:37 Dose: Not Given Ceftriaxone Sodium 1 g/ Sodium (Chloride) 100 mls @ 200 mls/hr IV Q24H [facility] Last Infusion: 04/21/17 15:02 Dose: Infused Magnesium Hydroxide (Mom) 30 ml PO DAILY PRN PRN Reason: Constipation [id number] Ethyl Esters (Lovaza) 1 gm PO DAILY [facility] Last Admin: 04/21/17 08:30 Dose: 1 gm Ondansetron HCl (Zofran) 4 mg IVP Q6H PRN PRN Reason: Nausea Polyethylene Glycol (Miralax) 17 gm PO DAILY PRN PRN Reason: Constipation Potassium Chloride (K-Dur) 10 meq PO WB [facility] Last Admin: 04/21/17 08:30 Dose: 10 meq Prenat Multivit/Tate/Iron/Folic Ac (Roque ) 1 tab PO DAILY [facility] Last Admin: 04/21/17 08:30 Dose: 1 tab Sodium Chloride (Iv Flush) 10 - 80 ml IVF PRN PRN PRN Reason: Flushing Last Admin: 04/22/17 04:55 Dose: 10 ml Sodium Chloride (Normal Saline) 500 ml IV PRN PRN Last Admin: 04/21/17 14:22 Dose: 500 ml More short of breath with activity. Requires 5 L for ambulation. <Markus Hilario - 04/22/17 17:19> Reclining in hospital bed alone in room. "Better." Performing incentive spirometer exercises "often." SOA and cough persist, hemoptysis "10 Times yesterday-pea size...3 times today-much less and is dark now" Normal stooling and voiding today General: No fever, no night sweats Eyes: No redness, no pain, no diplopia ENT: No mouth sores, no trouble swallowing Cardiac: No chest pain no palpitations Pulmonary: +o cough, + shortness of breath, no wheezing + hemoptysis, but lessening. Abdomen: No pain, no nausea vomiting, no diarrhea or constipation : No urgency, frequency, dysuria, or hematuria Musculoskeletal: No arthritis, no myalgias Neurological: No headaches, no focal weakness Skin: No rash, no sores Psychiatric: No anxiety, no depression <Patsy Elaine 04/22/17 13:53> Exam Vital signs: Temperature 97.0 F 04/22/17 11:41 Pulse Rate 94 04/22/17 11:41 Respiratory Rate 20 04/22/17 11:41 Blood Pressure 95/66 04/22/17 11:41 Pulse Oximetry 95 04/22/17 11:41 Oxygen Delivery Method Nasal Cannula Oxygen Flow Rate 4 <Patsy Elaine - 04/22/17 13:54> Temperature 95.2 F L 04/22/17 07:31 Pulse Rate 82 04/22/17 07:33 Respiratory Rate 20 04/22/17 07:31 Blood Pressure 113/72 04/22/17 07:31 Pulse Oximetry 91 04/22/17 07:33 Oxygen Delivery Method Nasal Cannula Oxygen Flow Rate 3.5 <Markus Hilario - 04/22/17 08:06> - Constitutional no acute distress, well nourished, well developed <Patsy Elaine 04/22/17 13:53> - Routine HEENT Exam Head: Present: normocephalic <Patsy Elaine 04/22/17 13:53> Eye: Present: EOMI, conjunctivae pink <Patsy Elaine 04/22/17 13:53> Nose: moist mucous membranes <Patsy Elaine 04/22/17 13:53> Throat: normal inspection <Patsy Elaine 04/22/17 13:53> - Routine Neck Exam Present: lymphadenopathy (left supraclavicular area of 1 cm) < Markus Hilario - 04/22/17 17:19> Present: supple. Absent: tenderness <Patsy Elaine 13:53> - Routine Chest/Breast/Axilla Exam Axillae: Absent: lymphadenopathy <Patsy Elaine 04/22/17 13:53> - Routine Respiratory Exam Present: dyspnea <Markus Hilario 04/22/17 17:19> Present: decreased breath sounds. Absent: respiratory distress , wheezes, crackles <Patsy Elaine - 04/22/17 13:53> - Routine Cardiovascular Exam Present: RRR, tachycardia. Absent: murmur, gallop <Patsy Elaine - 04/22/17 13:53> - Routine Abdominal Exam Present: soft, normoactive bowel sounds, non tender. Absent: tenderness < Patsy Elaine - 04/22/17 13:53> - Routine Extremities Exam Absent: no edema, tenderness <Patsy Elaine - 04/22/17 13:53> - Routine Back/Spine/Pelvis Exam Back/Spine: Absent: paraspinal tenderness <Patsy Elaine - 04/22/17 13:53> - Routine Skin Exam Present: intact, dry. Absent: wounds, rash <Patsy Elaine - 04/22/17 13:53> - Routine Neurological Exam Present: alert, oriented X3 <Patsy Elaine - 04/22/17 13:53> - Routine Psychiatric Exam Present: normal affect, normal thought process <Patsy Elaine - 04/22/17 13: 53> Oncology Results - Labs CBC & Chem 7: 04/22/17 04:52 04/22/17 04:52 <Markus Hilario - 04/22/17 08:06> Labs: Short CBC 04/22/17 Range/Units 04:52 WBC 8.9 (4.5-11.0) T/MM3 Hgb 12.5 (12-16) GM/DL Hct 38.7 (36-46) % Plt Count 118 L (130-400) T/MM3 [facility] 04/22/17 04:52 Sodium 143 Potassium 3.7 Chloride 107 Carbon Dioxide 26 BUN 15.0 Creatinine 0.6 L Glucose 127 H Calcium 8.6 <Patsy Elaine L - 04/22/17 13:54> Short CBC 04/22/17 Range/Units 04:52 WBC 8.9 (4.5-11.0) T/MM3 Hgb 12.5 (12-16) GM/DL Hct 38.7 (36-46) % Plt Count 118 L (130-400) T/MM3 [facility] 04/22/17 04:52 Sodium 143 Potassium 3.7 Chloride 107 Carbon Dioxide 26 BUN 15.0 Creatinine 0.6 L Glucose 127 H Calcium 8.6 <Markus Hilario - 04/22/17 08:06> - Imaging and Cardiology Chest x-ray Status: image reviewed by me (I also reviewed image with Dr. Sykes) <Markus Hilario - 04/22/17 17:19> Additional comments: LOCATION OF DICTATION: [place] EXAM: XR chest 2V HISTORY: F/U COMPARISON: April 19 and April 18, 2017. FINDINGS: Heart size is upper limits normal. Central pulmonary vasculature is within normal limits. There is improved aeration when compared to the previous study three days earlier with some residual airspace opacities demonstrated in the right mid to lower lung zone. There are no pleural effusions. There is no pneumothorax. Mild spondylosis of the thoracic spine. IMPRESSION: Improved aeration compared with three days earlier with residual airspace opacities overlying the right mid to lower lung zone. Continued follow-up is recommended. . 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 Bronchoscopy was negative. Will need left SCV LN biopsy for staging. If supraclavicular lymph node shows metastatic disease then treatment would be chemotherapy. We could do expectant therapy with the lungs because I feel the most significant aspect of her shortness of breath is related to the lung lesion that could be either infectious or metastatic disease. Currently on antibiotics. Await Her 2 testing. Check CEA. Supportive care. Rule out DIC from gastric cancer as platelets are dropping. 3- SOB s/p bronchoscopy, hx of PPD positive: lung infiltrates; lymphangetic spread vs infectious or cardiac. Breathing has improved from Saturday but is significant and short of breath. . We'll check sedimentation rate and CRP. Bronchoscopy cultures were negative so far. <Markus Hilario - 04/22/17 17:19> Continue to await pathology results. Subjectively feeling improved. Informed patient Dr. Hilario would see her later today-he may call pathologist today. <Patsy Elaine - 04/22/17 13:53> - Time Spent With Patient Total time spent is greater than 50% in coordination of care (as documented) at patient's floor/unit and/or counseling patient: <Patsy Elaine - 04/22/17 13:54> Total time spent is greater than 50% in coordination of care (as documented) at patient's floor/unit and/or counseling patient: <Markus Hilario - 04/22/17 08:06> 25 - 35 minutes <Markus Hilario 04/22/17 17:19> less than 15 minutes <Patsy Elaine - 04/22/17 13:53> Sepsis Assessment - Evaluation Sepsis screening result: No Definite Risk <Markus Hilario 04/22/17 08:06>
--- NOTE | 2017-04-22 08:39 | Pulmonology Progress Note ---
Subjective Principal diagnosis: dyspnea Interval history: up eating. no complaints. feeling better, breathing better. No fevers Exam Vital signs: Temperature 95.2 F L 04/22/17 07:31 Pulse Rate 82 04/22/17 07:33 Respiratory Rate 20 04/22/17 07:31 Blood Pressure 113/72 04/22/17 07:31 Pulse Oximetry 91 04/22/17 07:33 Oxygen Delivery Method Nasal Cannula Oxygen Flow Rate 3.5 - Constitutional no acute distress - Routine Neck Exam Present: supple, full ROM - Routine Respiratory Exam Absent: accessory muscle use - Routine Extremities Exam Absent: cyanosis, clubbing Progress Note-A&P (1) Abnormal CT of the chest Status: Acute Assessment and plan: await results of bronchoscopy. cyto/path anticipated. Current Visit: Yes (2) Respiratory failure with hypoxia Status: Acute Assessment and plan: wean O2 as tolerated. Current Visit: Yes - Time Spent With Patient Total time spent is greater than 50% in coordination of care (as documented) at patient's floor/unit and/or counseling patient: less than 15 minutes Sepsis Assessment - Evaluation Sepsis screening result: No Definite Risk
[2017-04-22] MEDS: FISH OIL PO SCH (08:59)
[2017-04-22] MEDS: FUROSEMIDE 20 MG TABLET PO SCH (08:59)
--- NOTE | 2017-04-22 09:00 | XRay Report ---
LOCATION OF DICTATION: [place] EXAM: XR chest 2V HISTORY: F/U COMPARISON: April 19 and April 18, 2017. FINDINGS: Heart size is upper limits normal. Central pulmonary vasculature is within normal limits. There is improved aeration when compared to the previous study three days earlier with some residual airspace opacities demonstrated in the right mid to lower lung zone. There are no pleural effusions. There is no pneumothorax. Mild spondylosis of the thoracic spine. IMPRESSION: Improved aeration compared with three days earlier with residual airspace opacities overlying the right mid to lower lung zone. Continued follow-up is recommended. .
[2017-04-22] MEDS: MULTIVITAMIN PO SCH (09:01)
[2017-04-22] MEDS: GUAIFENESIN LA 600 MG TABLET PO SCH ×2 (09:01→21:44)
--- NOTE | 2017-04-22 11:50 | Progress Note ---
<Dedra Alcocer - Last Filed: 04/22/17 11:53> Subjective: Carson was tachypneic and having conversational dyspnea when I stopped by this morning. She stated that she has been up most of the morning completing her ADLS , so feels like she needs a little time to recover. Indeed, after about 10 minutes of rest her breathing had improved. She feels like overall her respiratory status is improving, however started having bright red hemoptysis last night (small amounts on tissue). She denies seeing any blood in her bowel movements or in her urine. She stated that she "looks" better - her color is better and her face looks better today compared to how she's been feeling. She is eating well. She is keeping close tabs on her ins/outs. She stated that she would feel ready to go home with oxygen, whenever she is medically cleared. Objective Vital signs: Temperature 97.0 F 04/22/17 11:41 Pulse Rate 94 04/22/17 11:41 Respiratory Rate 20 04/22/17 11:41 Blood Pressure 95/66 04/22/17 11:41 Pulse Oximetry 95 04/22/17 11:41 Oxygen Delivery Method Nasal Cannula Oxygen Flow Rate 4 Rhythm: Normal Sinus Rhythm Height/Weight/BMI: Weight 55.3 kg - Constitutional Present: mild distress, well nourished, well developed, thin - Routine HEENT Exam ENT: Present: mucous membranes moist, oropharynx clear - Routine Respiratory Exam Present: crackles (RLL) - Routine Cardiovascular Exam Present: RRR, S1, S2 - Routine Abdominal Exam Present: soft, normoactive bowel sounds, non distended, non tender - Routine Extremities Exam Present: no edema, pulses intact, normal capillary refill - Routine Musculoskeletal Exam Musculoskeletal: Present: moving extremities well. Absent: limited range of motion - Routine Skin Exam Present: intact, dry, warm - Routine Neurological Exam Present: alert, oriented X3, CN II-XII intact - Routine Psychiatric Exam Present: normal affect, normal thought process, cooperative Results - Labs CBC & Chem 7: 04/22/17 04:52 04/22/17 04:52 Microbiology Results: Microbiology 04/19/17 16:55 Bronchial Washing Acid Fast Bacilli Culture & Smear - Preliminary 04/19/17 16:55 Bal, Right Lower Lobe Gram Stain - Final 04/19/17 16:55 Bal, Right Lower Lobe Bronchial Aspirate Culture - Final Normal Respiratory Delia 04/19/17 16:55 Bronchial Washing Fungal Culture - Preliminary - Imaging and Cardiology Chest x-ray Status: image reviewed by me (improved; the consolidation in the right lung is not as prominent) Assessment and Plan (1) Respiratory failure with hypoxia Current visit: Yes Status: Acute (2) Hypernatremia Current visit: Yes Status: Acute (3) Hypokalemia Current visit: Yes Status: Resolved (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 Current visit: Yes Status: Chronic (6) Pulmonary edema Current visit: Yes Status: Acute Resuscitation Status: Do Not Resuscitate Assessment and Plan: Assessment Respiratory failure with hypoxia Pulmonary edema with hemoptysis Moderate to Severe tricuspid regurgitation with severe pulmonary hypertension, PA pressure of 72. Right ventricular dilation with global hypokinesis. Mild mitral regurgitation. LVH. Normal LV systolic function with EF of 74%. Hypernatremia (POA) - resolved Hypokalemia (POA) - resolved Thymoma Gastric adenocarcinoma Elevated liver enzymes and hyperbilirubinemia - resolved Elevated blood sugars Plan Still awaiting path and cytology reports. She is still on 3-4+ L of oxygen, but feels like she is improving (except for new onset hemoptysis). Continue Rocephin for pulmonary coverage. Continue Lasix; radiographic improvement noted. Labs stable and hypernatremia has resolved. Discussed with Dr. Guillen. Sepsis Assessment - Evaluation Sepsis screening result: No Definite Risk Hospital Course Summary Disclaimer: The visit summary below is not to be considered part of the above Progress Note. Hospital Course: 04/18/17 Admission Patient outpatient observation under the care of Dr. Guillen for acute respiratory failure with hypoxia, hypernatremia with hypokalemia. Consultations placed to Dr. Hilario, Dr. Watson and Dr. Daly An echocardiogram is ordered for further cardiac evaluation. Obtain CRP and ESR for laboratory completeness. Patient did recently complete a ten-day course of Cipro for antimicrobial coverage. Will cover patient with IV Rocephin as there is some question regarding pulmonary infiltrates. She was given a one-time dose of 40 milligrams of IV Lasix as well as oral potassium supplementation. Oxygen therapy to maintain adequate saturations. 04/19/17 Appreciate consultation by multiple consultation specialists including Dr. Watson, Dr. Hilario and Dr. Daly. She does continue to require oxygen to maintain adequate saturations, which does meet her for inpatient criteria. Will change patient at this time. Bronchoscopy done per Dr. Daly; BAL washing sent. Echo reveal an EF of 74%, with moderate to severe tricuspid regurgitation and severe pulmonary hypertension. 04/20/17 Ongoing respiratory therapy with hypoxia; needing 4L of oxygen. Liver enzymes are back to normal. Potassium level has improved to 3.7. Renal function is stable. Sodium is still slightly high at 147. Waiting on results of bronchial washing and cytology; staging of gastric adenocarcinoma. Appreciate multiple consultants. Lasix 40 mg IV was given on 04/18 - cardiology has recommended gentle diuresis with 20 mg of IV Lasix daily. Continues on Rocephin 1 gm daily since 04/18/17. 04/21/17 Continue Rocephin for pulmonary coverage. Lasix 20mg po daily started yesterday for pulmonary edema-monitor for hypotension/orthostasis/elevating creatinine due to right heart dysfunction. Oral potassium 10mEq daily started due to Lasix use. Potassium and creatinine stable. 04/22/17 Still awaiting path and cytology reports. She is still on 3-4 L of oxygen, but feels like she is improving (except for new onset hemoptysis). Continue Rocephin for pulmonary coverage. Continue Lasix; radiographic improvement noted. Labs stable and hypernatremia has resolved. <Ayaan Guillen - Last Filed: 04/22/17 17:58> Objective Vital signs: Temperature 95.6 F L 04/22/17 15:25 Pulse Rate 81 04/22/17 16:00 Respiratory Rate 20 04/22/17 15:25 Blood Pressure 106/67 04/22/17 15:25 Pulse Oximetry 93 04/22/17 15:25 Oxygen Delivery Method Nasal Cannula Oxygen Flow Rate 4 Height/Weight/BMI: Weight 55.3 kg Results - Labs CBC & Chem 7: 04/22/17 04:52 04/22/17 04:52 Microbiology Results: Microbiology 04/19/17 16:55 Bronchial Washing Acid Fast Bacilli Culture & Smear - Preliminary 04/19/17 16:55 Bal, Right Lower Lobe Gram Stain - Final 04/19/17 16:55 Bal, Right Lower Lobe Bronchial Aspirate Culture - Final Normal Respiratory Delia 04/19/17 16:55 Bronchial Washing Fungal Culture - Preliminary Assessment and Plan (1) Respiratory failure with hypoxia Current visit: Yes Status: Acute (2) Hypernatremia Current visit: Yes Status: Acute (3) Hypokalemia Current visit: Yes Status: Resolved (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 Current visit: Yes Status: Chronic (6) Pulmonary edema Current visit: Yes Status: Acute DVT Prophylaxis: SCD's (And ambulation. ) Assessment and Plan: Assessment Respiratory failure with hypoxia Pulmonary edema with hemoptysis Moderate to Severe tricuspid regurgitation with severe pulmonary hypertension, PA pressure of 72. Right ventricular dilation with global hypokinesis. Mild mitral regurgitation. LVH. Normal LV systolic function with EF of 74%. Hypernatremia (POA) - resolved Hypokalemia (POA) - resolved Thymoma Gastric adenocarcinoma Elevated liver enzymes and hyperbilirubinemia - resolved Elevated blood sugars Have independently interviewed and examined pt. Chart reviewed. Case discussed with CM, Dr Hilario, and my DROP WIRER. Care plan developed with my supervision; agree with above. Breathing slightly better but still some congestion and needing O2. Not feeling unsteady when ambulating. No nausea. Eating well (misses her home cooking). Lungs: decreased, scattered crackle. CV: regular MSE: awake alert appropriate Plan: Discussed case with Dr Hilario. Bronch not showing malignant cells-are seeing chronic inflammation like possible aspiration. Pt does not have obvious signs for aspiration. Will have speech check her swallow ability and function. Start Budesonide 0.5mg nebulized BID due to inflammatory reaction. As no cancer seen on bronch, ONC recommend lymph node Bx. Will continue with Lasix- tolerating well. Continue with supplemental O2, suspect pt will need continuous O2 at home (previously, just using at night). Monitor lab. Encourage continued ambulation to help strength and functional status. Hospital Course Summary Disclaimer: The visit summary below is not to be considered part of the above Progress Note.
--- NOTE | 2017-04-22 12:04 | Work/School Release ---
Work/School Release - Date Date: 04/22/17 - Work Release Remain off work/school for:: Carson Schneider was hospitalized at [facility] on 04/18/17. Date to return to work will be determined by the medical team overseeing her care. Excused for:: Acute illness requiring hospitalization
[2017-04-22] MEDS: CEFTRIAXONE 1 G in NS 100 ML IV SCH (14:23)
--- NOTE | 2017-04-22 15:37 | Cardiology Progress Note ---
Subjective Principal diagnosis: dyspnea <Coty Miranda - 04/22/17 15:37> Interval history: Carson is seen in her room on the Medical unit. She is in no distress and sitting in the recliner. Asks if there are any new results from her bronchoscopy. She denies chest pain or cardiac complaints. <Coty Miranda - 04/22/17 16:44> Exam Vital signs: Temperature 96.5 F L 04/23/17 11:59 Pulse Rate 96 04/23/17 13:36 Respiratory Rate 24 04/23/17 13:36 Blood Pressure 94/64 04/23/17 13:36 Pulse Oximetry 86 L 04/23/17 13:36 Oxygen Delivery Method Nasal Cannula Oxygen Flow Rate 4 <Sarthak Watson - 04/23/17 13:42> Temperature 95.6 F L 04/22/17 15:25 Pulse Rate 83 04/22/17 15:25 Respiratory Rate 20 04/22/17 15:25 Blood Pressure 106/67 04/22/17 15:25 Pulse Oximetry 93 04/22/17 15:25 Oxygen Delivery Method Nasal Cannula Oxygen Flow Rate 4 <Coty Miranda - 04/22/17 15:37> - Constitutional mild distress, thin, cooperative <Coty Miranda 04/22/17 15:37> - Routine HEENT Exam Head: Present: normocephalic <Coty Miranda 04/22/17 15:37> ENT: Present: mucous membranes moist <Coty Miranda 04/22/17 15:37> - Routine Neck Exam Absent: JVD, carotid bruit <Coty Miranda 04/22/17 15:37> - Routine Chest/Breast/Axilla Exam Chest wall: Absent: tenderness <Coty Miranda 04/22/17 15:37> - Routine Respiratory Exam Present: rales (right basilar), diminished air movement. Absent: CTA bilaterally <Coty Miranda 04/22/17 15:37> - Routine Cardiovascular Exam Present: RRR. Absent: JVD <Coty Miranda 04/22/17 15:37> - Routine Abdominal Exam Present: soft, normoactive bowel sounds <Coty Miranda 04/22/17 15:37> - Routine Skin Exam Present: intact, dry, warm. Absent: rash <Coty Miranda - 04/22/17 15:37> - Routine Neurological Exam Present: alert, oriented X3 <Coty Miranda - 04/22/17 15:37> - Routine Psychiatric Exam Present: normal affect, normal thought process <Coty Miranda - 04/22/17 15: 37> - Additional findings Additional findings: Laboratory Results - last 48 hr 04/21/17 04/21/17 04/21/17 05:01 05:01 06:13 WBC 8.9 RBC 4.39 Hgb 11.8 L Hct 37.9 MCV 86.3 MCH 26.9 MCHC 31.1 RDW Std Deviation 47.4 Plt Count 132 MPV 11.5 Immature Gran % (Auto) 0.1 Neut % (Auto) 75.7 H Lymph % (Auto) 17.6 L [place] % (Auto) 6.4 Eos % (Auto) 0.0 Baso % (Auto) 0.2 Neut # 6.8 Lymph # 1.6 [place] # 0.6 Eos # 0.0 Baso # 0.0 Abs Immat Gran (auto) 0.01 Turbidity < 20 Sodium 145 H Potassium 3.8 Chloride 109 H Carbon Dioxide 26 Anion Gap 10 BUN 15.0 Creatinine 0.7 GFR Calculation 84 BUN/Creatinine Ratio 21 Glucose 172 H Hemoglobin A1c 6.4 Calculated Osmolality 284 H Calcium 8.9 Magnesium Icterus Index < 2 Specimen Hemolysis < 15 Stool Occult Blood Negative 04/22/17 04/22/17 04:52 04:52 WBC 8.9 RBC 4.53 Hgb 12.5 Hct 38.7 MCV 85.4 MCH 27.6 MCHC 32.3 RDW Std Deviation 47.7 Plt Count 118 L MPV 11.9 Immature Gran % (Auto) 0.1 Neut % (Auto) 69.5 H Lymph % (Auto) 23.3 [place] % (Auto) Acetaminophen (Tylenol) 650 mg PO Q5H PRN PRN Reason: Discomfort Furosemide (Lasix) 20 mg PO DAILY [facility] Last Admin: 04/22/17 08:59 Dose: 20 mg Guaifenesin (Mucinex La) 600 mg PO BID [facility] Last Admin: 04/22/17 09:01 Dose: 600 mg Ceftriaxone Sodium 1 g/ Sodium (Chloride) 100 mls @ 200 mls/hr IV Q24H [facility] Last Infusion: 04/22/17 15:17 Dose: Infused Magnesium Hydroxide (Mom) 30 ml PO DAILY PRN PRN Reason: Constipation Iablk-1-Alht Ethyl Esters (Lovaza) 1 gm PO DAILY [facility] Last Admin: 04/22/17 08:59 Dose: 1 gm Ondansetron HCl (Zofran) 4 mg IVP Q6H PRN PRN Reason: Nausea Polyethylene Glycol (Miralax) 17 gm PO DAILY PRN PRN Reason: Constipation Potassium Chloride (K-Dur) 10 meq PO WB [facility] Last Admin: 04/22/17 08:59 Dose: 10 meq Prenat Multivit/[place]/Iron/Folic Ac (Roque ) 1 tab PO DAILY [facility] Last Admin: 04/22/17 09:01 Dose: 1 tab Sodium Chloride (Iv Flush) 10 - 80 ml IVF PRN PRN PRN Reason: Flushing Last Admin: 04/22/17 04:55 Dose: 10 ml Sodium Chloride (Normal Saline) 500 ml IV PRN PRN Last Admin: 04/21/17 14:22 Dose: 500 ml 6.8 Eos % (Auto) 0.0 Baso % (Auto) 0.3 Neut # 6.2 Lymph # 2.1 [place] # 0.6 Eos # 0.0 Baso # 0.0 Abs Immat Gran (auto) 0.01 Turbidity < 20 Sodium 143 Potassium 3.7 Chloride 107 Carbon Dioxide 26 Anion Gap 10 BUN 15.0 Creatinine 0.6 L GFR Calculation 100 BUN/Creatinine Ratio 25 Glucose 127 H Hemoglobin A1c Calculated Osmolality 278 Calcium 8.6 Magnesium 1.9 Icterus Index < 2 Specimen Hemolysis 19 Stool Occult Blood <Coty Miranda - 04/22/17 15:37> Progress Note-A&P (1) Respiratory failure with hypoxia Status: Acute Current Visit: Yes (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 Status: Chronic Current Visit: Yes (4) Encounter for preprocedural cardiovascular examination Status: Acute Current Visit: Yes (5) Abnormal electrocardiogram Status: Acute Current Visit: Yes (6) Pulmonary edema Status: Acute Current Visit: Yes (7) Pulmonary hypertension Status: Acute Current Visit: Yes <Sarthak Watson - 04/23/17 13:42> (1) Pulmonary edema Status: Acute Assessment and plan: pt reports ease of breathing after lasix, vitals stable. Current Visit: Yes (2) Respiratory failure with hypoxia Status: Acute Assessment and plan: Remains on O2 at 2l/nc. Less respiratory difficulty today. Current Visit: Yes (3) Encounter for preprocedural cardiovascular examination Status: Acute Current Visit: Yes (4) Abnormal electrocardiogram Status: Acute Current Visit: Yes (5) Thymoma Status: Chronic Current Visit: Yes (6) Gastric adenocarcinoma Problem details: Recently Dx. Status: Chronic Current Visit: Yes (7) Pulmonary hypertension Status: Acute Assessment and plan: pa pressures on echo 72mmhg Current Visit: Yes <Coty Miranda 04/22/17 16:42> - Time Spent With Patient Total time spent is greater than 50% in coordination of care (as documented) at patient's floor/unit and/or counseling patient: <Sarthak Watson 04/23/17 13:42> Total time spent is greater than 50% in coordination of care (as documented) at patient's floor/unit and/or counseling patient: <Coty Miranda - 04/22/17 15:37> less than 15 minutes <Coty Miranda 04/22/17 16:44> - Attestation Attestation Narrative: Recommendation After examining the patient I agree with the above assessment. I am involved in the formulation of the patient's plan of care. <Sarthak Watson 04/23/17 13:42> Sepsis Assessment - Evaluation Sepsis screening result: No Definite Risk <Coty Miranda 04/22/17 15:37> Hospital Course Summary Disclaimer: The visit summary below is not to be considered part of the above Progress Note. <Sarthak Watson 04/23/17 13:42> The visit summary below is not to be considered part of the above Progress Note. <Coty Miranda 04/22/17 15:37> Hospital Course: 04/18/17 admission Plan Patient outpatient observation under the care of Dr. Guillen for acute respiratory failure with hypoxia, hypernatremia with hypokalemia. Consultation placed to Dr. Hilario. 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 Consultations placed to both Dr. Watson and Dr. Daly as requested by oncology team for further evaluation of cardiomegaly and pulmonary status. Monitor patient. Cardiac telemetry An echocardiogram is ordered for further cardiac evaluation. Obtain CRP and ESR for laboratory completeness. Patient did recently complete a ten-day course of Cipro for antimicrobial coverage. Will cover patient with IV Rocephin as there is some question regarding pulmonary infiltrates. She was given a one-time dose of 40 milligrams of IV Lasix as well as oral potassium supplementation. Oxygen therapy to maintain adequate saturations. SCDs to bilateral lower extremity for DVT prophylaxis. We did discuss advanced directives and patient does verbalize her wish to be a do not resuscitate Will discuss further orders and plan of care with attending, Dr. Callejas. At time of discharge medical care [facility] <Coty Miranda - 04/22/17 15:37>
[2017-04-22] MEDS: BUDESONIDE INH.SOLN 0.5mg/2ml NEB AEROSOL SCH ×2 (21:47→22:10)
[2017-04-23] MEDS: BUDESONIDE INH.SOLN 0.5mg/2ml NEB AEROSOL SCH (09:25)
[2017-04-23] MEDS ORDERED: LIDOCAINE 1% (10mg/ml) 30ml PF SDV STERI-PAK ONE (09:27)
[2017-04-23] MEDS: FUROSEMIDE 20 MG TABLET PO SCH (09:51)
[2017-04-23] MEDS: GUAIFENESIN LA 600 MG TABLET PO SCH ×2 (09:52→20:58)
[2017-04-23] MEDS: FISH OIL PO SCH (09:52)
[2017-04-23] MEDS: MULTIVITAMIN PO SCH (09:52)
--- NOTE | 2017-04-23 12:32 | Progress Note ---
Oncology Subjective Alert. Continues w/ some SOA, cough, but symptoms slightly less. Hungry. Having lymph node biopsy today. General: No fever, no night sweats Eyes: No redness, no pain, no diplopia ENT: No mouth sores, no trouble swallowing Cardiac: No chest pain no palpitations Pulmonary: + cough, + shortness of breath, no wheezing. No further hemoptysis Abdomen: No pain, no nausea vomiting, no diarrhea or constipation : No urgency, frequency, dysuria, or hematuria Musculoskeletal: No arthritis, no myalgias Neurological: No headaches, no focal weakness Skin: No rash, no sores Psychiatric: No anxiety, no depression Exam Vital signs: Temperature 96.5 F L 04/23/17 11:59 Pulse Rate 96 04/23/17 11:59 Respiratory Rate 18 04/23/17 11:59 Blood Pressure 92/64 04/23/17 11:59 Pulse Oximetry 89 L 04/23/17 11:59 Oxygen Delivery Method Nasal Cannula Oxygen Flow Rate 3 - Constitutional no acute distress, well nourished, well developed - Routine HEENT Exam Head: Present: normocephalic Eye: Present: EOMI, PERRL ENT: Present: mucous membranes moist - Routine Neck Exam Present: supple. Absent: lymphadenopathy - Routine Respiratory Exam Present: decreased breath sounds. Absent: accessory muscle use, wheezes - Routine Cardiovascular Exam Present: RRR, no murmur - Routine Abdominal Exam Present: soft, normoactive bowel sounds. Absent: non distended, non tender - Routine Extremities Exam Present: full ROM. Absent: no edema - Routine Back/Spine/Pelvis Exam Back/Spine: Absent: paraspinal tenderness - Routine Skin Exam Present: intact, warm. Absent: rash - Routine Neurological Exam Present: alert, oriented X3 - Routine Psychiatric Exam Present: normal affect, normal thought process, good insight, good judgment Oncology Results - Labs CBC & Chem 7: 04/23/17 04:44 04/23/17 04:44 Labs: Short CBC 04/23/17 Range/Units 04:44 WBC 9.1 (4.5-11.0) T/MM3 Hgb 12.5 (12-16) GM/DL Hct 39.1 (36-46) % Plt Count 118 L (130-400) T/MM3 [facility] 04/23/17 04:44 Sodium 143 Potassium 3.9 Chloride 107 Carbon Dioxide 26 BUN 20.0 H Creatinine 0.7 Glucose 128 H Calcium 9.0 Liver Function 04/23/17 Range/Units 04:44 Total Bilirubin 0.70 (0.20-1.30) MG/DL AST 89 H D (14-36) U/L ALT 93 H D (9-52) U/L Alkaline Phosphatase 108 D (38-126) U/L Albumin 3.4 L (3.5-5.0) G/DL Assessment and Plan Assessment and Plan: A/P: 1- Thymoma. Currently with disease in the chest. 2- Stomach cancer/adenocarcinoma undergoing work-up to determine extent of disease. Bronchoscopy was negative. Will need left SCV LN biopsy for staging. If supraclavicular lymph node shows metastatic disease then treatment would be chemotherapy. We could do expectant therapy with the lungs because I feel the most significant aspect of her shortness of breath is related to the lung lesion that could be either infectious or metastatic disease. Currently on antibiotics. Await Her 2 testing. Check CEA. Supportive care. 3- SOB s/p bronchoscopy, hx of PPD positive: lung infiltrates; lymphangetic spread vs infectious or cardiac. Plan Dr. Pardo visited w/ patient. Bronchoscopy pathology results negative for malignancy. Will await pathology of SCV LN biopsy for development of plan of care. This will be done today. Continue supportive care. - Time Spent With Patient Total time spent is greater than 50% in coordination of care (as documented) at patient's floor/unit and/or counseling patient: less than 15 minutes Sepsis Assessment - Evaluation Sepsis screening result: No Definite Risk
--- NOTE | 2017-04-23 12:52 | Cardiology Progress Note ---
Subjective Principal diagnosis: dyspnea <Coty Miranda - 04/23/17 12:52> Interval history: Carson is seen in her room on Medical. She asks about going home and we explained to her that from a cardiac standpoint she is stable. Diuretics may need adjustment if BP gets low. She denies cardiac complaints. <Coty Miranda - 04/23/17 14:38> Exam Vital signs: Temperature 96.8 F 04/25/17 08:14 Pulse Rate 84 04/25/17 08:49 Respiratory Rate 24 04/25/17 09:57 Blood Pressure 103/68 04/25/17 08:14 Pulse Oximetry 92 04/25/17 09:57 Oxygen Delivery Method Nasal Cannula Oxygen Flow Rate 5 <Sarthak Watson - 04/25/17 14:44> Temperature 96.5 F L 04/23/17 11:59 Pulse Rate 96 04/23/17 11:59 Respiratory Rate 18 04/23/17 11:59 Blood Pressure 92/64 04/23/17 11:59 Pulse Oximetry 89 L 04/23/17 11:59 Oxygen Delivery Method Nasal Cannula Oxygen Flow Rate 3 <Coty Miranda 04/23/17 12:52> - Constitutional no acute distress, cooperative <Coty Miranda 04/23/17 12:52> - Routine HEENT Exam Head: Present: normocephalic <Coty Miranda 04/23/17 12:52> ENT: Present: mucous membranes moist <Coty Miranda 04/23/17 12:52> - Routine Neck Exam Absent: JVD, carotid bruit <Coty Miranda 04/23/17 12:52> - Routine Chest/Breast/Axilla Exam Chest wall: Absent: tenderness <Coty Miranda 04/23/17 12:52> - Routine Respiratory Exam Present: decreased breath sounds, rales. Absent: CTA bilaterally <Coty Miranda 04/23/17 12:52> - Routine Cardiovascular Exam Present: RRR. Absent: JVD <Coty Miranda 04/23/17 14:38> - Routine Abdominal Exam Present: soft, normoactive bowel sounds <Coty Miranda 04/23/17 12:52> - Routine Extremities Exam Present: no edema <Coty Miranda - 04/23/17 14:38> - Routine Skin Exam Present: intact, dry, warm <Coty Miranda - 04/23/17 12:52> - Routine Neurological Exam Present: alert, oriented X3 <Coty Miranda - 04/23/17 12:52> - Routine Psychiatric Exam Present: normal affect, normal thought process <Coty Miranda - 04/23/17 12: 52> - Additional findings Additional findings: Laboratory Results - last 48 hr 04/22/17 04/22/17 04/23/17 04:52 04:52 04:44 WBC 8.9 9.1 RBC 4.53 4.59 Hgb 12.5 12.5 Hct 38.7 39.1 MCV 85.4 85.2 MCH 27.6 27.2 MCHC 32.3 32.0 RDW Std Deviation 47.7 48.0 Plt Count 118 L 118 L MPV 11.9 12.5 H Immature Gran % (Auto) 0.1 0.1 Neut % (Auto) 69.5 H 67.9 H Lymph % (Auto) 23.3 25.4 [place] % (Auto) 6.8 6.4 Eos % (Auto) 0.0 0.0 Baso % (Auto) 0.3 0.2 Neut # 6.2 6.2 Lymph # 2.1 2.3 [place] # 0.6 0.6 Eos # 0.0 0.0 Baso # 0.0 0.0 Abs Immat Gran (auto) 0.01 0.01 INR APTT Fibrinogen D-Dimer Turbidity < 20 Sodium 143 Potassium 3.7 Chloride 107 Carbon Dioxide 26 Anion Gap 10 BUN 15.0 Creatinine 0.6 L GFR Calculation 100 BUN/Creatinine Ratio 25 Glucose 127 H Calculated Osmolality 278 Calcium 8.6 Magnesium 1.9 Total Bilirubin Icterus Index < 2 AST ALT Alkaline Phosphatase Lactate Dehydrogenase B-Natriuretic Peptide Total Protein Albumin Globulin Albumin/Globulin Ratio Carcinoembryonic Ag Specimen Hemolysis 19 04/23/17 04/23/17 04/23/17 04:44 04:44 04:44 WBC RBC Hgb Hct MCV MCH MCHC RDW Std Deviation Plt Count MPV Immature Gran % (Auto) Neut % (Auto) Lymph % (Auto) [place] % (Auto) Eos % (Auto) Baso % (Auto) Neut # Lymph # [place] # Eos # Baso # Abs Immat Gran (auto) INR 1.06 APTT 28.7 Fibrinogen 324 D-Dimer 1200 H Turbidity < 20 Sodium 143 Potassium 3.9 Chloride 107 Carbon Dioxide 26 Anion Gap 10 BUN 20.0 H Creatinine 0.7 GFR Calculation 84 BUN/Creatinine Ratio 29 H Glucose 128 H Calculated Osmolality 280 Calcium 9.0 Magnesium 2.0 Total Bilirubin 0.70 Icterus Index < 2 AST 89 H D ALT 93 H D Alkaline Phosphatase 108 D Lactate Dehydrogenase 688 H B-Natriuretic Peptide 7030 H Total Protein 6.8 Albumin 3.4 L Globulin 3.4 Albumin/Globulin Ratio 1.0 L Carcinoembryonic Ag 1.78 Specimen Hemolysis < 15 Acetaminophen (Tylenol) 650 mg PO Q5H PRN PRN Reason: Discomfort Budesonide (Pulmicort Inhalation) 0.5 mg AEROSOL RTBID [facility] Last Admin: 04/22/17 22:10 Dose: 0.5 mg Furosemide (Lasix) 20 mg PO DAILY [facility] Last Admin: 04/23/17 09:51 Dose: 20 mg Guaifenesin (Mucinex La) 600 mg PO BID [facility] Last Admin: 04/23/17 09:52 Dose: 600 mg Ceftriaxone Sodium 1 g/ Sodium (Chloride) 100 mls @ 200 mls/hr IV Q24H [facility] Last Infusion: 04/22/17 15:17 Dose: Infused Magnesium Hydroxide (Mom) 30 ml PO DAILY PRN PRN Reason: Constipation Sxfwt-2-Ke[place] Ethyl Esters (Lovaza) 1 gm PO DAILY [facility] Last Admin: 04/23/17 09:52 Dose: 1 gm Ondansetron HCl (Zofran) 4 mg IVP Q6H PRN PRN Reason: Nausea Polyethylene Glycol (Miralax) 17 gm PO DAILY PRN PRN Reason: Constipation Potassium Chloride (K-Dur) 10 meq PO WB [facility] Last Admin: 04/23/17 09:52 Dose: 10 meq Prenat Multivit/Willow Analyst/Iron/Folic Ac (Roque ) 1 tab PO DAILY [facility] Last Admin: 04/23/17 09:52 Dose: 1 tab Sodium Chloride (Iv Flush) 10 - 80 ml IVF PRN PRN PRN Reason: Flushing Last Admin: 04/22/17 04:55 Dose: 10 ml Sodium Chloride (Normal Saline) 500 ml IV PRN PRN Last Admin: 04/21/17 14:22 Dose: 500 ml <Ruth,Coty Blount 04/23/17 12:58> Progress Note-A&P (1) Respiratory failure with hypoxia Status: Acute Current Visit: Yes (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 Status: Chronic Current Visit: Yes (4) Encounter for preprocedural cardiovascular examination Status: Acute Current Visit: Yes (5) Abnormal electrocardiogram Status: Acute Current Visit: Yes (6) Pulmonary edema Status: Acute Current Visit: Yes (7) Pulmonary hypertension Status: Acute Current Visit: Yes <Sarthak Watson 04/25/17 14:44> (1) Pulmonary edema Status: Acute Assessment and plan: V/S stable with current diuresis, Weaning O2 at tolerates. Has O2 concentrator at home. Current Visit: Yes (2) Respiratory failure with hypoxia Status: Acute Assessment and plan: Remains on O2 at 2l/nc. Less respiratory difficulty today. Current Visit: Yes (3) Encounter for preprocedural cardiovascular examination Status: Acute Current Visit: Yes (4) Abnormal electrocardiogram Status: Acute Current Visit: Yes (5) Thymoma Status: Chronic Current Visit: Yes (6) Gastric adenocarcinoma Problem details: Recently Dx. Status: Chronic Current Visit: Yes (7) Pulmonary hypertension Status: Acute Assessment and plan: pa pressures on echo 72mmhg Current Visit: Yes <Coty Miranda 04/23/17 14:34> - Time Spent With Patient Total time spent is greater than 50% in coordination of care (as documented) at patient's floor/unit and/or counseling patient: <Sarthak Watson 04/25/17 14:44> Total time spent is greater than 50% in coordination of care (as documented) at patient's floor/unit and/or counseling patient: <Coty Miranda 04/23/17 12:52> less than 15 minutes <Coty Miranda 04/23/17 14:38> - Attestation Attestation Narrative: Recommendation After examining the patient I agree with the above assessment. I am involved in the formulation of the patient's plan of care. <Sarthak Watson 04/25/17 14:44> Sepsis Assessment - Evaluation Sepsis screening result: No Definite Risk <Coty Miranda - 04/23/17 12:52> Hospital Course Summary Disclaimer: The visit summary below is not to be considered part of the above Progress Note. <Sarthak Watson - 04/25/17 14:44> The visit summary below is not to be considered part of the above Progress Note. <Coty Miranda - 04/23/17 12:52> Hospital Course: 04/18/17 admission Plan Patient outpatient observation under the care of Dr. Guillen for acute respiratory failure with hypoxia, hypernatremia with hypokalemia. Consultation placed to Dr. Hilario. 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 Consultations placed to both Dr. Watson and Dr. Daly as requested by oncology team for further evaluation of cardiomegaly and pulmonary status. Monitor patient. Cardiac telemetry An echocardiogram is ordered for further cardiac evaluation. Obtain CRP and ESR for laboratory completeness. Patient did recently complete a ten-day course of Cipro for antimicrobial coverage. Will cover patient with IV Rocephin as there is some question regarding pulmonary infiltrates. She was given a one-time dose of 40 milligrams of IV Lasix as well as oral potassium supplementation. Oxygen therapy to maintain adequate saturations. SCDs to bilateral lower extremity for DVT prophylaxis. We did discuss advanced directives and patient does verbalize her wish to be a do not resuscitate Will discuss further orders and plan of care with attending, Dr. Callejas. At time of discharge medical care will return to primary care provider Nicole Gavin at [facility] <Coty Miranda - 04/23/17 12:52>
--- NOTE | 2017-04-23 14:28 | Ultrasound Report ---
Indication:Positive L supraclavicular node on PET Procedure:US biopsy lymph node SUPRACLAVICULAR LYMPH NODE BIOPSY WITH ULTRASOUND GUIDANCE: The details of the procedure, including the risks, were discussed with the patient. All of her questions were answered. The patient wished to proceed and informed consent was obtained. A preprocedural timeout was performed to confirm the correct patient and procedure. Using aseptic technique, local lidocaine anesthetic, and ultrasound guidance throughout, five passes using an 18G x 1.3 cm throw core Biopince biopsy needle were performed to obtain several tissue samples of the left supraclavicular lymph node that was noted on the patient's recent PET/CT. The tissue samples were placed in formalin and sent to lab for the requested studies. There was no complication. The patient tolerated this procedure well. Following this, the patient was taken back to her room on the medical floor. Impression: Successful core biopsy of a left supraclavicular lymph node. Fili Vargas RPA/KAROL performed this under my personal supervision. .
[2017-04-23] MEDS: CEFTRIAXONE 1 G in NS 100 ML IV SCH (16:00)
--- NOTE | 2017-04-23 20:00 | Progress Note ---
Subjective: Carson reports ongoing exertional dyspnea although indicates it is not as bad with slow activities and it was previously. She's had no recurrent hemoptysis. She denied lightheadedness or pain. Similarly she's had no nausea or vomiting. Oral intake has been limited today due to supraclavicular node biopsy. Objective Vital signs: Temperature 96.5 F L 04/23/17 11:59 Pulse Rate 90 04/23/17 16:04 Respiratory Rate 24 04/23/17 13:36 Blood Pressure 103/69 04/23/17 16:04 Pulse Oximetry 88 L 04/23/17 16:04 Oxygen Delivery Method Nasal Cannula Oxygen Flow Rate 4 EXAM General-NAD, alert, fluent speech HEENT-conjunctiva clear, sclera anicteric, conjugate gaze; left supraclavicular adenopathy palpable Lungs-respirations nonlabored at rest, good airflow, minor basilar crackles- primarily at the right base where breath sounds are also diminished Cardiac-regular rhythm, S1-S2, low-grade tachycardia Abd-soft, nontender, bowel sounds present Ext-without edema Neuro-moving all extremities well, ambulates without assistance Psych-calm, cooperative - Rhythm: Normal Sinus Rhythm Height/Weight/BMI: Weight 55.9 kg Results - Labs CBC & Chem 7: 04/23/17 04:44 04/23/17 04:44 Labs: INR 1.06, PTT 28.7, fibrinogen 324, d-dimer 1200 AST 89, ALT 93, alkaline phosphatase 108, bilirubin 0.7, LDH 688 pBNP 7030 CEA 1.78 Microbiology Results: Microbiology 04/19/17 16:55 Bronchial Washing Acid Fast Bacilli Culture & Smear - Preliminary 04/19/17 16:55 Bal, Right Lower Lobe Gram Stain - Final 04/19/17 16:55 Bal, Right Lower Lobe Bronchial Aspirate Culture - Final Normal Respiratory Delia 04/19/17 16:55 Bronchial Washing Fungal Culture - Preliminary - Imaging and Cardiology Chest x-ray Status: image reviewed by me (airspace disease right mid/lower lung on film obtained yesterday) Assessment and Plan (1) Respiratory failure with hypoxia Current visit: Yes Status: Acute (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 Current visit: Yes Status: Chronic (4) Pulmonary edema Current visit: Yes Status: Acute DVT Prophylaxis: SCD's Resuscitation Status: Do Not Resuscitate Assessment and Plan: Assessment Respiratory failure with hypoxia Pulmonary edema with hemoptysis Moderate to Severe tricuspid regurgitation with severe pulmonary hypertension, PA pressure of 72. Right ventricular dilation with global hypokinesis. Mild mitral regurgitation. LVH. Normal LV systolic function with EF of 74%. Hypernatremia (POA) - resolved Hypokalemia (POA) - resolved Thymoma Gastric adenocarcinoma Elevated liver enzymes and hyperbilirubinemia Elevated blood sugars Borderline thrombocytopenia Persistent hypoxia at rest (room air oxygen saturation 81% today) and with exercise-8 L supplemental oxygen required to maintain saturation above 90% with activities with exercise oximetry obtained earlier today. Will require 24-hour O2 at discharge. Supraclavicular lymph node biopsy obtained this afternoon for staging of gastric cancer. CEA negative, HER-2 testing pending. Continue Rocephin although bronchial aspirate with normal delia. Today is day 6 ceftriaxone-discontinue after dose tomorrow. Transaminases climbing, bilirubin/alkaline phosphatase okay. ProBNP elevated. Continue diuresis as blood pressure permits. Electrolytes stable. Discussed with case management and nursing, chest x-ray reviewed, laboratory data reviewed, consultants notes reviewed. Sepsis Assessment - Evaluation Sepsis screening result: No Definite Risk Hospital Course Summary Disclaimer: The visit summary below is not to be considered part of the above Progress Note. Hospital Course: 04/18/17 Admission Patient outpatient observation under the care of Dr. Guillen for acute respiratory failure with hypoxia, hypernatremia with hypokalemia. Consultations placed to Dr. Hilario, Dr. Watson and Dr. Daly An echocardiogram is ordered for further cardiac evaluation. Obtain CRP and ESR for laboratory completeness. Patient did recently complete a ten-day course of Cipro for antimicrobial coverage. Will cover patient with IV Rocephin as there is some question regarding pulmonary infiltrates. She was given a one-time dose of 40 milligrams of IV Lasix as well as oral potassium supplementation. Oxygen therapy to maintain adequate saturations. 04/19/17 Appreciate consultation by multiple consultation specialists including Dr. Watson, Dr. Hilario and Dr. Daly. She does continue to require oxygen to maintain adequate saturations, which does meet her for inpatient criteria. Will change patient at this time. Bronchoscopy done per Dr. Daly; BAL washing sent. Echo reveal an EF of 74%, with moderate to severe tricuspid regurgitation and severe pulmonary hypertension. 04/20/17 Ongoing respiratory therapy with hypoxia; needing 4L of oxygen. Liver enzymes are back to normal. Potassium level has improved to 3.7. Renal function is stable. Sodium is still slightly high at 147. Waiting on results of bronchial washing and cytology; staging of gastric adenocarcinoma. Appreciate multiple consultants. Lasix 40 mg IV was given on 04/18 - cardiology has recommended gentle diuresis with 20 mg of IV Lasix daily. Continues on Rocephin 1 gm daily since 04/18/17. 04/21/17 Continue Rocephin for pulmonary coverage. Lasix 20mg po daily started yesterday for pulmonary edema-monitor for hypotension/orthostasis/elevating creatinine due to right heart dysfunction. Oral potassium 10mEq daily started due to Lasix use. Potassium and creatinine stable. 04/22/17 Still awaiting path and cytology reports. She is still on 3-4 L of oxygen, but feels like she is improving (except for new onset hemoptysis). Continue Rocephin for pulmonary coverage. Continue Lasix; radiographic improvement noted. Labs stable and hypernatremia has resolved. 04/23/17 20:11 Persistent hypoxia at rest (room air oxygen saturation 81% today) and with exercise-8 L supplemental oxygen required to maintain saturation above 90% with activities with exercise oximetry obtained earlier today. Will require 24-hour O2 at discharge. Supraclavicular lymph node biopsy obtained this afternoon for staging of gastric cancer. CEA negative, HER-2 testing pending. Continue Rocephin although bronchial aspirate with normal delia. Today is day 6 ceftriaxone-discontinue after dose tomorrow. Transaminases climbing, bilirubin/alkaline phosphatase okay. ProBNP elevated. Continue diuresis as blood pressure permits. Electrolytes stable.
[2017-04-24] MEDS: BUDESONIDE INH.SOLN 0.5mg/2ml NEB AEROSOL SCH ×3 (07:13→22:55)
[2017-04-24] MEDS: FUROSEMIDE 20 MG TABLET PO SCH (08:23)
[2017-04-24] MEDS: FISH OIL PO SCH (08:24)
[2017-04-24] MEDS: GUAIFENESIN LA 600 MG TABLET PO SCH ×2 (08:24→21:54)
[2017-04-24] MEDS: MULTIVITAMIN PO SCH (08:24)
--- NOTE | 2017-04-24 11:32 | Cardiology Progress Note ---
Subjective Principal diagnosis: dyspnea <Coty Miranda - 04/24/17 11:32> Interval history: Carson is seen in her room, she is sitting upright in the bed in mild distress with O2 at 5L/NC in place. She denies chest pain, palpitations or dizziness/ near syncope. <Coty Miranda - 04/24/17 14:14> Exam Vital signs: Temperature 96.8 F 04/25/17 08:14 Pulse Rate 84 04/25/17 08:49 Respiratory Rate 24 04/25/17 09:57 Blood Pressure 103/68 04/25/17 08:14 Pulse Oximetry 92 04/25/17 09:57 Oxygen Delivery Method Nasal Cannula Oxygen Flow Rate 5 <Sarthak Watson - 04/25/17 14:49> Temperature 97.4 F 04/24/17 07:58 Pulse Rate 97 04/24/17 11:00 Respiratory Rate 24 04/24/17 07:58 Blood Pressure 104/68 04/24/17 11:00 Pulse Oximetry 92 04/24/17 11:00 Oxygen Delivery Method Nasal Cannula Oxygen Flow Rate 5 <Coty Miranda - 04/24/17 11:32> - Constitutional mild distress, well developed, thin, cooperative <Coty Miranda 04/24/17 14 :14> - Routine HEENT Exam Head: Present: normocephalic <Coty Miranda 04/24/17 14:14> ENT: Present: mucous membranes moist <Coty Miranda 04/24/17 14:14> - Routine Neck Exam Absent: JVD, carotid bruit <Coty Miranda 04/24/17 14:14> - Routine Chest/Breast/Axilla Exam Chest wall: Absent: tenderness <Coty Miranda 04/24/17 14:14> - Routine Respiratory Exam Present: rales (bibasilar), diminished air movement. Absent: CTA bilaterally <Coty Miranda 04/24/17 14:14> - Routine Cardiovascular Exam Present: RRR, no murmur. Absent: JVD <Coty Miranda 04/24/17 14:14> - Routine Abdominal Exam Present: soft, normoactive bowel sounds <Coty Miranda 04/24/17 14:14> - Routine Extremities Exam Present: no edema <Coty Miranda - 04/24/17 14:14> - Routine Skin Exam Present: intact, dry, warm <Coty Miranda - 04/24/17 14:14> - Routine Neurological Exam Present: alert, oriented X3 <Coty Miranda - 04/24/17 14:14> - Routine Psychiatric Exam Present: normal affect, normal thought process <Coty Miranda - 04/24/17 14: 14> - Additional findings Additional findings: Laboratory Results - last 48 hr 04/23/17 04/23/17 04/23/17 04:44 04:44 04:44 WBC 9.1 RBC 4.59 Hgb 12.5 Hct 39.1 MCV 85.2 MCH 27.2 MCHC 32.0 RDW Std Deviation 48.0 Plt Count 118 L MPV 12.5 H Immature Gran % (Auto) 0.1 Neut % (Auto) 67.9 H Lymph % (Auto) 25.4 [place] % (Auto) 6.4 Eos % (Auto) 0.0 Baso % (Auto) 0.2 Neut # 6.2 Lymph # 2.3 [place] # 0.6 Eos # 0.0 Baso # 0.0 Abs Immat Gran (auto) 0.01 INR 1.06 APTT 28.7 Fibrinogen 324 D-Dimer 1200 H Turbidity < 20 Sodium 143 Potassium 3.9 Chloride 107 Carbon Dioxide 26 Anion Gap 10 BUN 20.0 H Creatinine 0.7 GFR Calculation 84 BUN/Creatinine Ratio 29 H Glucose 128 H Calculated Osmolality 280 Calcium 9.0 Magnesium 2.0 Total Bilirubin 0.70 Icterus Index < 2 AST 89 H D ALT 93 H D Alkaline Phosphatase 108 D Lactate Dehydrogenase 688 H B-Natriuretic Peptide 7030 H Total Protein 6.8 Albumin 3.4 L Globulin 3.4 Albumin/Globulin Ratio 1.0 L Carcinoembryonic Ag Specimen Hemolysis < 15 04/23/17 04/24/17 04:44 09:18 WBC RBC Hgb Hct MCV MCH MCHC RDW Std Deviation Plt Count MPV Immature Gran % (Auto) Neut % (Auto) Lymph % (Auto) [place] % (Auto) Eos % (Auto) Baso % (Auto) Neut # Lymph # [place] # Eos # Baso # Abs Immat Gran (auto) INR APTT Fibrinogen D-Dimer Turbidity < 20 Sodium 141 Potassium 3.9 Chloride 104 Carbon Dioxide 23 Anion Gap 14 BUN 20.0 H Creatinine 0.9 D GFR Calculation 63 BUN/Creatinine Ratio 22 Glucose 270 H Calculated Osmolality 284 H Calcium 9.1 Magnesium 1.8 Total Bilirubin Icterus Index < 2 AST ALT Alkaline Phosphatase Lactate Dehydrogenase B-Natriuretic Peptide Total Protein Albumin Globulin Albumin/Globulin Ratio Carcinoembryonic Ag 1.78 Specimen Hemolysis < 15 Acetaminophen (Tylenol) 650 mg PO Q5H PRN PRN Reason: Discomfort Budesonide (Pulmicort Inhalation) 0.5 mg AEROSOL RTBID [facility] Last Admin: 04/24/17 07:14 Dose: 0.5 mg Furosemide (Lasix) 20 mg PO DAILY [facility] Last Admin: 04/24/17 08:23 Dose: 20 mg Guaifenesin (Mucinex La) 600 mg PO BID [facility] Last Admin: 04/24/17 08:24 Dose: 600 mg Ceftriaxone Sodium 1 g/ Sodium (Chloride) 100 mls @ 200 mls/hr IV Q24H [facility] Last Infusion: 04/23/17 16:30 Dose: Infused Magnesium Hydroxide (Mom) 30 ml PO DAILY PRN PRN Reason: Constipation [id number] Ethyl Esters (Lovaza) 1 gm PO DAILY [facility] Last Admin: 04/24/17 08:24 Dose: Not Given Ondansetron HCl (Zofran) 4 mg IVP Q6H PRN PRN Reason: Nausea Polyethylene Glycol (Miralax) 17 gm PO DAILY PRN PRN Reason: Constipation Potassium Chloride (K-Dur) 10 meq PO WB [facility] Last Admin: 04/24/17 08:24 Dose: 10 meq Prenat Multivit/[place]/Iron/Folic Ac (Roque ) 1 tab PO DAILY [facility] Last Admin: 04/24/17 08:24 Dose: 1 tab Sodium Chloride (Iv Flush) 10 - 80 ml IVF PRN PRN PRN Reason: Flushing Last Admin: 04/22/17 04:55 Dose: 10 ml Sodium Chloride (Normal Saline) 500 ml IV PRN PRN Last Admin: 04/21/17 14:22 Dose: 500 ml <Coty Miranda - 04/24/17 11:32> Progress Note-A&P (1) Respiratory failure with hypoxia Status: Acute Current Visit: Yes (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 Status: Chronic Current Visit: Yes (4) Encounter for preprocedural cardiovascular examination Status: Acute Current Visit: Yes (5) Abnormal electrocardiogram Status: Acute Current Visit: Yes (6) Pulmonary edema Status: Acute Current Visit: Yes (7) Pulmonary hypertension Status: Acute Current Visit: Yes <Sarthak Watson 04/25/17 14:49> (1) Pulmonary edema Status: Acute Assessment and plan: V/S stable with current diuresis, Weaning O2 at tolerates. Has O2 concentrator at home. Current Visit: Yes (2) Respiratory failure with hypoxia Status: Acute Assessment and plan: Remains on O2 at 2l/nc. Less respiratory difficulty today. Current Visit: Yes (3) Encounter for preprocedural cardiovascular examination Status: Acute Current Visit: Yes (4) Abnormal electrocardiogram Status: Acute Current Visit: Yes (5) Thymoma Status: Chronic Current Visit: Yes (6) Gastric adenocarcinoma Problem details: Recently Dx. Status: Chronic Current Visit: Yes (7) Pulmonary hypertension Status: Acute Assessment and plan: pa pressures on echo 72mmhg Current Visit: Yes <Coty Miranda 04/24/17 14:11> - Time Spent With Patient Total time spent is greater than 50% in coordination of care (as documented) at patient's floor/unit and/or counseling patient: <Sarthak Watson 04/25/17 14:49> Total time spent is greater than 50% in coordination of care (as documented) at patient's floor/unit and/or counseling patient: <Coty Miranda 04/24/17 11:32> less than 15 minutes <Coty Miranda 04/24/17 14:14> - Attestation Attestation Narrative: Recommendation After examining the patient I agree with the above assessment. I am involved in the formulation of the patient's plan of care. <Sarthak Watson 04/25/17 14:49> Sepsis Assessment - Evaluation Sepsis screening result: No Definite Risk <Coty Miranda 04/24/17 11:32> Hospital Course Summary Disclaimer: The visit summary below is not to be considered part of the above Progress Note. <Sarthak Watson 04/25/17 14:49> The visit summary below is not to be considered part of the above Progress Note. <Coty Miranda - 04/24/17 11:32> Hospital Course: 04/18/17 Admission Patient outpatient observation under the care of Dr. Guillen for acute respiratory failure with hypoxia, hypernatremia with hypokalemia. Consultations placed to Dr. Hilario, Dr. Watson and Dr. Daly An echocardiogram is ordered for further cardiac evaluation. Obtain CRP and ESR for laboratory completeness. Patient did recently complete a ten-day course of Cipro for antimicrobial coverage. Will cover patient with IV Rocephin as there is some question regarding pulmonary infiltrates. She was given a one-time dose of 40 milligrams of IV Lasix as well as oral potassium supplementation. Oxygen therapy to maintain adequate saturations. 04/19/17 Appreciate consultation by multiple consultation specialists including Dr. Watson, Dr. Hilario and Dr. Daly. She does continue to require oxygen to maintain adequate saturations, which does meet her for inpatient criteria. Will change patient at this time. Bronchoscopy done per Dr. Daly; BAL washing sent. Echo reveal an EF of 74%, with moderate to severe tricuspid regurgitation and severe pulmonary hypertension. 04/20/17 Ongoing respiratory therapy with hypoxia; needing 4L of oxygen. Liver enzymes are back to normal. Potassium level has improved to 3.7. Renal function is stable. Sodium is still slightly high at 147. Waiting on results of bronchial washing and cytology; staging of gastric adenocarcinoma. Appreciate multiple consultants. Lasix 40 mg IV was given on 04/18 - cardiology has recommended gentle diuresis with 20 mg of IV Lasix daily. Continues on Rocephin 1 gm daily since 04/18/17. 04/21/17 Continue Rocephin for pulmonary coverage. Lasix 20mg po daily started yesterday for pulmonary edema-monitor for hypotension/orthostasis/elevating creatinine due to right heart dysfunction. Oral potassium 10mEq daily started due to Lasix use. Potassium and creatinine stable. 04/22/17 Still awaiting path and cytology reports. She is still on 3-4 L of oxygen, but feels like she is improving (except for new onset hemoptysis). Continue Rocephin for pulmonary coverage. Continue Lasix; radiographic improvement noted. Labs stable and hypernatremia has resolved. 04/23/17 20:11 Persistent hypoxia at rest (room air oxygen saturation 81% today) and with exercise-8 L supplemental oxygen required to maintain saturation above 90% with activities with exercise oximetry obtained earlier today. Will require 24-hour O2 at discharge. Supraclavicular lymph node biopsy obtained this afternoon for staging of gastric cancer. CEA negative, HER-2 testing pending. Continue Rocephin although bronchial aspirate with normal amrik. Today is day 6 ceftriaxone-discontinue after dose tomorrow. Transaminases climbing, bilirubin/alkaline phosphatase okay. ProBNP elevated. Continue diuresis as blood pressure permits. Electrolytes stable. <Coty Miranda - 04/24/17 11:32>
--- NOTE | 2017-04-24 11:49 | Progress Note ---
<Theodora Pagan V - Last Filed: 04/24/17 11:43> Subjective: Carson is seen today in follow up while sitting up with her daughter. She is enjoying lunch today and is without complaints. She verbalizes feeling frustrated that she continues to require 5 liters of oxygen to maintain saturations. Carson denies having pain or GI complaints. BP has been borderline low 90-104 systolic. Objective Vital signs: Temperature 97.4 F 04/24/17 07:58 Pulse Rate 97 04/24/17 11:00 Respiratory Rate 24 04/24/17 07:58 Blood Pressure 104/68 04/24/17 11:00 Pulse Oximetry 92 04/24/17 11:00 Oxygen Delivery Method Nasal Cannula Oxygen Flow Rate 5 Height/Weight/BMI: Weight 54.7 kg - Constitutional Present: no acute distress, well nourished, well developed - Routine HEENT Exam Eye: Present: EOMI ENT: Present: mucous membranes moist, dentition normal - Routine Respiratory Exam Present: crackles (bilateral bases posterior). Absent: wheezes - Routine Cardiovascular Exam Present: RRR, S1, S2. Absent: murmur - Routine Abdominal Exam Present: soft, normoactive bowel sounds, non distended. Absent: tenderness - Routine Extremities Exam Present: normal capillary refill - Routine Back/Spine/Pelvis Exam Back/Spine: Present: full ROM - Routine Skin Exam Present: intact, dry, warm - Routine Neurological Exam Present: alert, oriented X3, CN II-XII intact - Routine Lymphatic Exam Lymphatic: Absent: adenopathy - Routine Psychiatric Exam Present: normal affect, normal thought process Results - Labs CBC & Chem 7: 04/23/17 04:44 04/24/17 09:18 Microbiology Results: Microbiology 04/19/17 16:55 Bronchial Washing Acid Fast Bacilli Culture & Smear - Preliminary 04/19/17 16:55 Bal, Right Lower Lobe Gram Stain - Final 04/19/17 16:55 Bal, Right Lower Lobe Bronchial Aspirate Culture - Final Normal Respiratory Amrik 04/19/17 16:55 Bronchial Washing Fungal Culture - Preliminary Assessment and Plan (1) Respiratory failure with hypoxia Current visit: Yes Status: Acute (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 Current visit: Yes Status: Chronic (4) Pulmonary edema Current visit: Yes Status: Acute Assessment and Plan: Assessment Respiratory failure with hypoxia Pulmonary edema with hemoptysis Moderate to Severe tricuspid regurgitation with severe pulmonary hypertension, PA pressure of 72. Right ventricular dilation with global hypokinesis. Mild mitral regurgitation. LVH. Normal LV systolic function with EF of 74%. Hypernatremia (POA) - resolved Hypokalemia (POA) - resolved Thymoma Gastric adenocarcinoma Elevated liver enzymes and hyperbilirubinemia Elevated blood sugars Borderline thrombocytopenia Plan- 04/24/17 Continues to require oxygen to maintain adequate saturations. Currently requiring 5 liters by nasal cannula. Start patient on prednisone 40 milligrams daily as this may help with pulmonary inflammation. Continue on scheduled breathing treatments. Today is day 7 of IV Rocephin for empiric antimicrobial coverage. Will discontinue after today's dose. Bronchoscope pathology negative for malignancy. Lymph node Pathology pending. Chemistry overall remained stable and CBC unremarkable. Noted LFTs elevated yesterday. She continues on Lasix 20 milligrams daily for gentle diuresis seen. Discuss further orders and plan of care with attending, Dr. Morgan Sepsis Assessment - Evaluation Sepsis screening result: No Definite Risk Hospital Course Summary Disclaimer: The visit summary below is not to be considered part of the above Progress Note. Hospital Course: 04/18/17 Admission Patient outpatient observation under the care of Dr. Guillen for acute respiratory failure with hypoxia, hypernatremia with hypokalemia. Consultations placed to Dr. Hilario, Dr. Watson and Dr. Daly An echocardiogram is ordered for further cardiac evaluation. Obtain CRP and ESR for laboratory completeness. Patient did recently complete a ten-day course of Cipro for antimicrobial coverage. Will cover patient with IV Rocephin as there is some question regarding pulmonary infiltrates. She was given a one-time dose of 40 milligrams of IV Lasix as well as oral potassium supplementation. Oxygen therapy to maintain adequate saturations. 04/19/17 Appreciate consultation by multiple consultation specialists including Dr. Watson, Dr. Hilario and Dr. Daly. She does continue to require oxygen to maintain adequate saturations, which does meet her for inpatient criteria. Will change patient at this time. Bronchoscopy done per Dr. Daly; BAL washing sent. Echo reveal an EF of 74%, with moderate to severe tricuspid regurgitation and severe pulmonary hypertension. 04/20/17 Ongoing respiratory therapy with hypoxia; needing 4L of oxygen. Liver enzymes are back to normal. Potassium level has improved to 3.7. Renal function is stable. Sodium is still slightly high at 147. Waiting on results of bronchial washing and cytology; staging of gastric adenocarcinoma. Appreciate multiple consultants. Lasix 40 mg IV was given on 04/18 - cardiology has recommended gentle diuresis with 20 mg of IV Lasix daily. Continues on Rocephin 1 gm daily since 04/18/17. 04/21/17 Continue Rocephin for pulmonary coverage. Lasix 20mg po daily started yesterday for pulmonary edema-monitor for hypotension/orthostasis/elevating creatinine due to right heart dysfunction. Oral potassium 10mEq daily started due to Lasix use. Potassium and creatinine stable. 04/22/17 Still awaiting path and cytology reports. She is still on 3-4 L of oxygen, but feels like she is improving (except for new onset hemoptysis). Continue Rocephin for pulmonary coverage. Continue Lasix; radiographic improvement noted. Labs stable and hypernatremia has resolved. 04/23/17 20:11 Persistent hypoxia at rest (room air oxygen saturation 81% today) and with exercise-8 L supplemental oxygen required to maintain saturation above 90% with activities with exercise oximetry obtained earlier today. Will require 24-hour O2 at discharge. Supraclavicular lymph node biopsy obtained this afternoon for staging of gastric cancer. CEA negative, HER-2 testing pending. Continue Rocephin although bronchial aspirate with normal amrik. Today is day 6 ceftriaxone-discontinue after dose tomorrow. Transaminases climbing, bilirubin/alkaline phosphatase okay. ProBNP elevated. Continue diuresis as blood pressure permits. Electrolytes stable. 04/24/17 - continued hypoxia requiring 5 liters of oxygen. Will start prednisone 40 milligrams daily. Today is 7 day completion of IV Rocephin. Will discontinue. <Cele Morgan - Last Filed: 04/24/17 20:37> Objective Vital signs: Temperature 97.3 F 04/24/17 19:49 Pulse Rate 95 04/24/17 19:49 Respiratory Rate 20 04/24/17 19:49 Blood Pressure 107/74 04/24/17 19:49 Pulse Oximetry 89 L 04/24/17 19:49 Oxygen Delivery Method Nasal Cannula Oxygen Flow Rate 5 Height/Weight/BMI: Weight 54.7 kg Results - Labs CBC & Chem 7: 04/23/17 04:44 04/24/17 09:18 Microbiology Results: Microbiology 04/19/17 16:55 Bronchial Washing Acid Fast Bacilli Culture & Smear - Preliminary 04/19/17 16:55 Bal, Right Lower Lobe Gram Stain - Final 04/19/17 16:55 Bal, Right Lower Lobe Bronchial Aspirate Culture - Final Normal Respiratory Amrik 04/19/17 16:55 Bronchial Washing Fungal Culture - Preliminary Assessment and Plan (1) Respiratory failure with hypoxia Current visit: Yes Status: Acute (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 Current visit: Yes Status: Chronic (4) Pulmonary edema Current visit: Yes Status: Acute Assessment and Plan: I have independently evaluated and examined this patient. I reviewed the chart, the patient's history, and the DIRECTOR TALENT MANAGEMENT/PA's documented findings as above. We discussed and formulated the assessment and plan as above with additions as below: Carson reports that respirations are basically the same with intermittent cough and dyspnea with minimal activity including conversation. Appetite is improved and she denies any emesis prior to admission or event she would associate with aspiration. NAD, alert, fluent speech with minimal dyspnea at the time of our conversation Respirations nonlabored, good airflow, breath sounds clear-much improved from yesterday Cardiac rhythm regular, low-grade tachycardia Pathology from lymph node biopsy reviewed-consistent with metastatic gastric adenocarcinoma Hospital course reviewed with Addy Miramontes, and Shirley. Dr. Ortiz consulted for PICC line in anticipation of initiating chemotherapy 2 days from now. Prednisone initiated for inflammatory component in the event infiltrates are due to aspiration. Antibiotics completed. Telemetry reviewed by myself-sinus rhythm/sinus tach. PICC line placement anticipated tomorrow. Lengthy conversation with patient regarding results/treatment options. - Time spent with patient greater than 35 minutes Coordination of Care: >50% of visit spent providing counseling/coordination of care Hospital Course Summary Disclaimer: The visit summary below is not to be considered part of the above Progress Note.
[2017-04-24] MEDS: PredniSONE 20 MG TABLET PO SCH (12:29)
--- NOTE | 2017-04-24 14:00 | Progress Note ---
Oncology Subjective Episode of shortness of breath and required more O2 last pm. No appetite. Wants to go home. Exam Vital signs: Temperature 97.4 F 04/24/17 07:58 Pulse Rate 97 04/24/17 11:00 Respiratory Rate 24 04/24/17 07:58 Blood Pressure 104/68 04/24/17 11:00 Pulse Oximetry 92 04/24/17 11:00 Oxygen Delivery Method Nasal Cannula Oxygen Flow Rate 5 - Constitutional mild distress - Routine HEENT Exam Head: Present: normocephalic Eye: Present: PERRL, conjunctivae pink - Routine Neck Exam Present: lymphadenopathy (L SC) - Routine Respiratory Exam Present: decreased breath sounds, rhonchi - Routine Cardiovascular Exam Present: RRR, S3 - Routine Abdominal Exam Present: soft, non distended. Absent: mass - Routine Skin Exam Present: dry, warm - Routine Neurological Exam Present: alert, CN II-XII intact - Routine Psychiatric Exam Present: normal affect Oncology Results - Labs CBC & Chem 7: 04/23/17 04:44 04/24/17 09:18 Labs: BMP 04/24/17 09:18 Sodium 141 Potassium 3.9 Chloride 104 Carbon Dioxide 23 BUN 20.0 H Creatinine 0.9 D Glucose 270 H Calcium 9.1 - Impressions Discussed pathology with Dr. Feliciano. SC node metastatic gastric cancer. Assessment and Plan Assessment and Plan: A/P: 1- Thymoma. Currently with disease in the chest. 2- Stomach cancer/adenocarcinoma undergoing work-up to determine extent of disease. Bronchoscopy was negative. Left SCV LN biopsy shows metastatic carcinoma. IHC to confirm this is gastric is pending. . If supraclavicular lymph node shows metastatic disease then treatment would be chemotherapy. We could do expectant therapy with the lungs because I feel the most significant aspect of her shortness of breath is related to the lung lesion that could be either infectious or metastatic disease. Would use Folfox and follow. Hope to get first cycle soon in hospital. Not improving on antibiotics. Steroids started. Negative for Her 2 testing. Normal CEA. LDH and LFT's increasing. 3- Pulmonary infiltrates with hypoxemia. No etiology has been found. S/p bronchoscopy, hx of PPD positive: lung infiltrates; lymphangetic spread vs infectious versus inflammatory or cardiac. Steroids started at the recommendation of Dr. Daly. Plan Port Education about chemotherapy Folfox Discussed starting Folfox soon. as to respiratory status. Continue supportive care. Discussed with Dr. Feliciano and Dr. Morgan and Dr. Smith. - Time Spent With Patient Total time spent is greater than 50% in coordination of care (as documented) at patient's floor/unit and/or counseling patient: 25 - 35 minutes Sepsis Assessment - Evaluation Sepsis screening result: No Definite Risk
--- NOTE | 2017-04-24 17:50 | General Surgery Consult Note ---
Consult date: 04/24/17 Attending Physician: Ayaan Guillen MD Reason for consult: other (request for Power Port) [facility] Patient Stated Medical History Sleep Apnea No Right lung mass Gastric adenocarcinoma 04/2017 Malignant thymoma History of TB 1997, treated Nephrolithiasis Cardiac murmur Surgical History: [id number]. [facility]. EGD- Gastric mass - adenocarcinoma- 04/11/17- Dr Ortiz Family History: Father- Liver disease, ETOH use Mother- Alive and well at 96. 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[place] Current residence: Apartment/Private Home Medications Home Medications Medication Instructions Recorded Confirmed Type Calcium Carbonate/Vitamin D3 1 tab PO DAILY 04/10/17 04/18/17 History [Calcium 600-Vit D3 2,500 Sftgl] Ciprofloxacin [Cipro] 500 mg PO BID 04/10/17 04/18/17 History Multivit,Calc,Mins/Iron/Folic 1 each PO DAILY 04/10/17 04/18/17 History [Women's Daily Caplet] Milmine-3 Fatty Acids/Fish Oil [Fish 1 cap PO DAILY 04/10/17 04/18/17 History Oil 1,200 mg Softgel] Allergies Allergy/AdvReac Type Severity Reaction Status Date / Time No Known Allergies Allergy Verified 04/18/17 13:38 Review of Systems 10-point ROS: negative except for HPI and the following: - General General: Present: unexplained weight loss - Eyes/Ears/Nose/Throat Eyes: Present: vision problems (wears glasses) - Cardiovascular Cardiovascular: Present: other (murmur) - Respiratory Respiratory: Present: difficulty breathing, sleep apnea - Vital Signs Last Vital Signs Temp 97.3 F 04/24/17 15:00 Pulse 98 04/24/17 15:00 Resp 22 04/24/17 15:00 BP 110/74 04/24/17 15:00 Pulse Ox 93 04/24/17 15:33 - Laboratory Result Diagrams: 04/23/17 04:44 04/24/17 09:18 General Surgery Results - Results Labs: 04/23/17 04:44 04/24/17 09:18 Hospital Course Summary Disclaimer: The visit summary below is not to be considered part of the above Progress Note. Hospital Course: 04/18/17 Admission Patient outpatient observation under the care of Dr. Guillen for acute respiratory failure with hypoxia, hypernatremia with hypokalemia. Consultations placed to Dr. Hilario, Dr. Watson and Dr. Daly An echocardiogram is ordered for further cardiac evaluation. Obtain CRP and ESR for laboratory completeness. Patient did recently complete a ten-day course of Cipro for antimicrobial coverage. Will cover patient with IV Rocephin as there is some question regarding pulmonary infiltrates. She was given a one-time dose of 40 milligrams of IV Lasix as well as oral potassium supplementation. Oxygen therapy to maintain adequate saturations. 04/19/17 Appreciate consultation by multiple consultation specialists including Dr. Watson, Dr. Hilario and Dr. Daly. She does continue to require oxygen to maintain adequate saturations, which does meet her for inpatient criteria. Will change patient at this time. Bronchoscopy done per Dr. Daly; BAL washing sent. Echo reveal an EF of 74%, with moderate to severe tricuspid regurgitation and severe pulmonary hypertension. 04/20/17 Ongoing respiratory therapy with hypoxia; needing 4L of oxygen. Liver enzymes are back to normal. Potassium level has improved to 3.7. Renal function is stable. Sodium is still slightly high at 147. Waiting on results of bronchial washing and cytology; staging of gastric adenocarcinoma. Appreciate multiple consultants. Lasix 40 mg IV was given on 04/18 - cardiology has recommended gentle diuresis with 20 mg of IV Lasix daily. Continues on Rocephin 1 gm daily since 04/18/17. 04/21/17 Continue Rocephin for pulmonary coverage. Lasix 20mg po daily started yesterday for pulmonary edema-monitor for hypotension/orthostasis/elevating creatinine due to right heart dysfunction. Oral potassium 10mEq daily started due to Lasix use. Potassium and creatinine stable. 04/22/17 Still awaiting path and cytology reports. She is still on 3-4 L of oxygen, but feels like she is improving (except for new onset hemoptysis). Continue Rocephin for pulmonary coverage. Continue Lasix; radiographic improvement noted. Labs stable and hypernatremia has resolved. 04/23/17 20:11 Persistent hypoxia at rest (room air oxygen saturation 81% today) and with exercise-8 L supplemental oxygen required to maintain saturation above 90% with activities with exercise oximetry obtained earlier today. Will require 24-hour O2 at discharge. Supraclavicular lymph node biopsy obtained this afternoon for staging of gastric cancer. CEA negative, HER-2 testing pending. Continue Rocephin although bronchial aspirate with normal amrik. Today is day 6 ceftriaxone-discontinue after dose tomorrow. Transaminases climbing, bilirubin/alkaline phosphatase okay. ProBNP elevated. Continue diuresis as blood pressure permits. Electrolytes stable. Sepsis Assessment - Evaluation Sepsis screening result: No Definite Risk
[2017-04-24] MEDS: SALINE FLUSH 10ml SYRINGE IVF PRN (21:54)
--- NOTE | 2017-04-25 07:13 | Consultation ---
DATE OF CONSULTATION 04/24/2017 FINDINGS The patient is a 66-year-old female who is known my surgical practice. Recently the patient, unfortunately, was found to have metastatic gastric adenocarcinoma. She had a PET scan that revealed an area of hypermetabolism involving her stomach. There were other areas of hypermetabolism within the retroperitoneum/para-aortic region. The patient did undergo an EGD and, unfortunately, was found to have a large mass involving the corpus of her stomach. This mass was biopsied and returned as that of an adenocarcinoma. Given the extent of the disease noted on PET scan, the patient was deemed a nonoperative candidate. The patient was recently admitted to our facility. The patient has seen oncology who has recommended palliative chemotherapy. I was requested to see the patient to discuss placement of a PowerPort catheter to facilitate her upcoming palliative chemotherapy. The patient, this evening, was without complaints. PAST MEDICAL HISTORY Performed by my nurse practitioner, Teofilo Pimentel. PAST SURGICAL HISTORY Performed by my nurse practitionerTeofilo. MEDICATIONS Performed by my nurse practitionerTeofilo. ALLERGIES Performed by my nurse practitionerTeofilo. SOCIAL HISTORY Performed by my nurse practitionerTeofilo. FAMILY HISTORY Performed by my nurse practitionerTeofilo. REVIEW OF SYSTEMS Performed by my nurse practitionerTeofilo. PHYSICAL EXAMINATION The patient is a 66-year-old female who does appear older than her stated age. VITALS: Temperature 97.3, pulse 98, respirations 22, blood pressure 110/74, SaO2 93% on 5 liters per nasal cannula.. HEENT: Normocephalic. Pupils are equal, round and reactive to light and accommodation. CHEST: Clear to auscultation bilaterally. HEART: Regular rate and rhythm. Normal S1 and S2 without gallops, murmurs or clicks. ABDOMEN: Palpation of the abdomen reveals it to be soft and nontender. I do not appreciate any evidence for hepatosplenomegaly or abnormal masses. EXTREMITIES: Without clubbing, cyanosis, or edema. NEURO: Cranial nerves II-XII grossly intact. Patient is without focal motor or sensory deficits. ASSESSMENT A 66-year-old female with metastatic gastric adenocarcinoma. PLAN Insertion of PowerPort catheter to facilitate upcoming palliative chemotherapy. The patient did have several questions for me this evening. I did spend some time going over with the patient her PET scan results that did show that she had disease beyond her stomach. I informed the patient that because of the fact that she was found to have evidence for cancer beyond the stomach she was not a surgical candidate. She had additional questions about her chemotherapy. I informed the patient that this would be best answered by her oncologist. I informed the patient that in my opinion, however, her chemotherapy is not to provide a cure but from a palliative standpoint. She did question how much longer "this would give her." I informed the patient that this is not my area of expertise and that she would need to speak with her oncologist. I did spend , again, a moderate amount of time with the patient this evening. I did discuss with her what insertion of a PowerPort catheter entails and its associated risk which includes, but is not limited to, bleeding and/or infection. The patient understood and wished to proceed with placement of PowerPort catheter. She stated that she would like to "try chemotherapy" to see if this would result in any improvement of her known malignancy. DAR
[2017-04-25] MEDS: BUDESONIDE INH.SOLN 0.5mg/2ml NEB AEROSOL SCH ×2 (09:54→20:13)
--- NOTE | 2017-04-25 10:06 | Progress Note ---
Oncology Subjective Reclining in hospital bed. Dr. Hilario at bedside. Discusses diagnosis, treatment options, and chemotherapy. Patient attentive. After Dr. Hilario leaves, detailed education provided on FOLFOX and copies of patient treatment information given to patient. Denies pain currently. States less short of air, but persists with exertion. Intermittent nonproductive cough. Eating and drinking fair. Voiding normally. No diarrhea or constipation. General: No fever, no night sweats Eyes: No redness, no pain, no diplopia ENT: No mouth sores, no trouble swallowing Cardiac: No chest pain no palpitations Pulmonary: + cough, + shortness of breath with exertion, no wheezing Abdomen: No pain, no nausea vomiting, no diarrhea or constipation : No urgency, frequency, dysuria, or hematuria Musculoskeletal: No arthritis, no myalgias Neurological: No headaches, no focal weakness Skin: No rash, no sores Psychiatric: No anxiety, no depression verbalized at this time <Patsy Elaine - 04/25/17 12:25> Exam Vital signs: Temperature 97.5 F 04/27/17 08:00 Pulse Rate 80 04/27/17 08:00 Respiratory Rate 20 04/27/17 08:00 Blood Pressure 101/75 04/27/17 08:00 Pulse Oximetry 91 04/27/17 08:00 Oxygen Delivery Method Nasal Cannula Oxygen Flow Rate 5.5 <Markus Hilario - 04/27/17 08:51> Temperature 96.8 F 04/25/17 08:14 Pulse Rate 84 04/25/17 08:49 Respiratory Rate 22 04/25/17 08:14 Blood Pressure 103/68 04/25/17 08:14 Pulse Oximetry 92 04/25/17 09:39 Oxygen Delivery Method Nasal Cannula Oxygen Flow Rate 5 <Patsy Elaine - 04/25/17 10:06> - Constitutional no acute distress, well nourished, well developed <Patsy Elaine 04/25/17 12:25> - Routine HEENT Exam Head: Present: normocephalic <Patsy Elaine 04/25/17 12:25> Eye: Present: EOMI, conjunctivae pink <Patsy Elaine - 04/25/17 12:25> - Routine Neck Exam Present: supple. Absent: lymphadenopathy, tenderness <Patsy Elaine - 12:25> - Routine Respiratory Exam Present: crackles (faint crackles left lower lobe posteriorly). Absent: wheezes <Patsy Elaine - 04/25/17 12:25> - Routine Cardiovascular Exam Present: RRR. Absent: no murmur <Patsy Elaine - 04/25/17 12:25> - Routine Abdominal Exam Present: soft, tenderness. Absent: non tender, organomegaly <Patsy Elaine - 04/25/17 12:25> - Routine Extremities Exam Absent: no edema, tenderness <Patsy Elaine - 04/25/17 12:25> - Routine Back/Spine/Pelvis Exam Back/Spine: Absent: vertebral tenderness <Patsy Elaine - 04/25/17 12:25> - Routine Skin Exam Present: intact, dry. Absent: rash <Patsy Elaine - 04/25/17 12:25> - Routine Neurological Exam Present: alert, oriented X3 <Patsy Elaine - 04/25/17 12:25> - Routine Psychiatric Exam Present: normal affect, normal thought process, cooperative, good insight < Patsy Elaine - 04/25/17 12:25> Oncology Results - Labs CBC & Chem 7: 04/27/17 04:06 04/27/17 04:06 <Markus Hilario - 04/27/17 08:51> Labs: Short CBC 04/27/17 Range/Units 04:06 WBC 12.8 H (4.5-11.0) T/MM3 Hgb 12.1 (12-16) GM/DL Hct 38.3 (36-46) % Plt Count 138 (130-400) T/MM3 [facility] 04/27/17 04:06 Sodium 140 Potassium 3.8 Chloride 104 Carbon Dioxide 24 BUN 30.0 H Creatinine 0.8 Glucose 175 H Calcium 8.9 Liver Function 04/27/17 Range/Units 04:06 Total Bilirubin 0.80 (0.20-1.30) MG/DL AST 142 H D (14-36) U/L ALT 151 H (9-52) U/L Alkaline Phosphatase 128 H (38-126) U/L Albumin 3.2 L (3.5-5.0) G/DL <Markus Hilario - 04/27/17 08:51> Short CBC 04/25/17 Range/Units 04:11 WBC 8.8 (4.5-11.0) T/MM3 Hgb 13.1 (12-16) GM/DL Hct 40.2 (36-46) % Plt Count 129 L (130-400) T/MM3 BMP 04/25/17 04:11 Sodium 142 Potassium 4.1 Chloride 106 Carbon Dioxide 22 BUN 27.0 H Creatinine 0.7 D Glucose 198 H Calcium 9.2 Liver Function 04/25/17 Range/Units 04:11 Total Bilirubin 0.70 (0.20-1.30) MG/DL AST 64 H (14-36) U/L ALT 92 H (9-52) U/L Alkaline Phosphatase 117 (38-126) U/L Albumin 3.6 (3.5-5.0) G/DL <Patsy Elaine L - 04/25/17 10:06> Assessment and Plan Assessment and Plan: Patient examined, chart reviewed. Agree with documentation of Karyna Elaine. I met with patient at 8 am and again at 4:30 prior to port. Discussed disease and treatment with daughters in room at 5:45. Patient experiencing progressive respiratory failure with pulmonary hypertension this is of unclear source. Tests to date have been non diagnostic. This process is most likely related to metastatic gastric cancer and would not expect any improvement without treatment of gastric cancer. Folfox would be best treatment as she would not tolerate fluid and hydration required for cisplatin. Discussed risks and benefits of therapy and palliative nature of treatment with patient and daughters. She is willing to proceed and orders sent to pharmacy. I participated in the development of the plan of care of this patient. 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 2- Stomach cancer/adenocarcinoma undergoing work-up to determine extent of disease. Bronchoscopy was negative. Left SCV LN biopsy shows metastatic carcinoma. IHC to confirm this is gastric is pending. . If supraclavicular lymph node shows metastatic disease then treatment would be chemotherapy. We could do expectant therapy with the lungs because I feel the most significant aspect of her shortness of breath is related to the lung lesion that could be either infectious or metastatic disease. Would use Folfox and follow. Hope to get first cycle soon in hospital. Not improving on antibiotics. Steroids started. Negative for Her 2 testing. Normal CEA. LDH and LFT's increasing. 3- Pulmonary infiltrates with hypoxemia. No etiology has been found. S/p bronchoscopy, hx of PPD positive: lung infiltrates; lymphangetic spread vs infectious versus inflammatory or cardiac. Steroids started at the recommendation of Dr. Daly. Plan Port Education about chemotherapy Folfox Discussed starting Folfox soon to improve respiratory status. Reviewed FOLFOX chemotherapy AND patient treatment information sheets are given to her and contents reviewed, including 5-FU and oxaliplatin are chemotherapy drugs, leucovorin increases the effectiveness of 5-FU. Taught goal is to kill the cancer cells. Reviewed What do I need to know before starting treatment/ starting FOLFOX, how will I get the treatment, when should I call my health care provider, and what are the possible side effects? Following discussion, her only question was what stage is her cancer. Reviewed is stage IV. Will not cure her cancer, but goal is to keep cancer from spreading and improve her quality of life. Following discussion, patient signs consent and wishes to proceed with treatment. Continue supportive care. Discussed with Dr. Feliciano and Dr. Morgan and Dr. Smith. <Patsy Elaine - 04/25/17 12:25> - Time Spent With Patient Total time spent is greater than 50% in coordination of care (as documented) at patient's floor/unit and/or counseling patient: <Markus Hilario - 04/27/17 08:51> Total time spent is greater than 50% in coordination of care (as documented) at patient's floor/unit and/or counseling patient: <Patsy Elaine - 04/25/17 10:06> 25 - 35 minutes <Patsy Elaine - 04/25/17 10:06> Sepsis Assessment - Evaluation Sepsis screening result: No Definite Risk <Patsy Elaine 04/25/17 10:06>
--- NOTE | 2017-04-25 11:24 | Progress Note ---
<Theodora Pagan V - Last Filed: 04/25/17 11:20> Subjective: Carson is seen today in follow up while resting. She continues to require 5 liters of oxygen by nasal cannula to maintain adequate saturations. She reports feeling significantly short of breath with minimal exertion even ambulating to the bathroom. Staff reports that saturations dropped to 84% while on O2 with exertion. She states that she feels that she needs assistance when up. He otherwise denies having pain and denies feeling dyspneic at rest. Appetite is been fair. Patient remains afebrile, Vital signs stable. Objective Vital signs: Temperature 96.8 F 04/25/17 08:14 Pulse Rate 84 04/25/17 08:49 Respiratory Rate 24 04/25/17 09:57 Blood Pressure 103/68 04/25/17 08:14 Pulse Oximetry 92 04/25/17 09:57 Oxygen Delivery Method Nasal Cannula Oxygen Flow Rate 5 Rhythm: Normal Sinus Rhythm Height/Weight/BMI: Weight 54.7 kg - Constitutional Present: no acute distress - Routine HEENT Exam Head: Present: normocephalic, atraumatic Eye: Present: EOMI ENT: Present: mucous membranes moist - Routine Respiratory Exam Present: crackles (Posterior bases) - Routine Cardiovascular Exam Present: RRR, S1, S2. Absent: murmur - Routine Abdominal Exam Present: soft, normoactive bowel sounds, non distended, non tender - Routine Extremities Exam Present: no edema, pulses intact, normal capillary refill - Routine Back/Spine/Pelvis Exam Back/Spine: Present: full ROM - Routine Skin Exam Present: intact, dry, warm - Routine Neurological Exam Present: alert, oriented X3, moving all extremities CN 3-12 intact - Routine Psychiatric Exam Present: normal affect, normal thought process Results - Labs CBC & Chem 7: 04/25/17 04:11 04/25/17 04:11 Microbiology Results: Microbiology 04/19/17 16:55 Bronchial Washing Acid Fast Bacilli Culture & Smear - Preliminary 04/19/17 16:55 Bal, Right Lower Lobe Gram Stain - Final 04/19/17 16:55 Bal, Right Lower Lobe Bronchial Aspirate Culture - Final Normal Respiratory Amrik 04/19/17 16:55 Bronchial Washing Fungal Culture - Preliminary Assessment and Plan (1) Respiratory failure with hypoxia Current visit: Yes Status: Acute (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 Current visit: Yes Status: Chronic (4) Pulmonary edema Current visit: Yes Status: Acute Assessment and Plan: 04/25/17- Plan Continue on oxygen to maintain adequate saturations. Currently requiring 5 liters. Telemetry reveals sinus rhythm, however, does report hypoxia episodes with exertion. Sats decreased to 84% on 5 liters with exertion. In today with scheduled breathing treatments Scheduled for placement of Port-A-Cath later this afternoon with Dr. Ortiz. Fortunately lymph node pathology did reveal metastatic gastric adenocarcinoma Planning to initiate 1st round of chemotherapy under the care of Dr. Nanny Rodriguez day course of Rocephin was completed yesterday. Patient placed on 40 millirems by mouth prednisone to help with pulmonary inflammation. Continues to have thrombocytopenia, 129 today. Continue to follow routine labs. Discuss orders and plan of care with attending, Dr. Morgan Sepsis Assessment - Evaluation Sepsis screening result: No Definite Risk Hospital Course Summary Disclaimer: The visit summary below is not to be considered part of the above Progress Note. Hospital Course: 04/18/17 Admission Patient outpatient observation under the care of Dr. Guillen for acute respiratory failure with hypoxia, hypernatremia with hypokalemia. Consultations placed to Dr. Hilario, Dr. Watson and Dr. Daly An echocardiogram is ordered for further cardiac evaluation. Obtain CRP and ESR for laboratory completeness. Patient did recently complete a ten-day course of Cipro for antimicrobial coverage. Will cover patient with IV Rocephin as there is some question regarding pulmonary infiltrates. She was given a one-time dose of 40 milligrams of IV Lasix as well as oral potassium supplementation. Oxygen therapy to maintain adequate saturations. 04/19/17 Appreciate consultation by multiple consultation specialists including Dr. Watson, Dr. Hilario and Dr. Daly. She does continue to require oxygen to maintain adequate saturations, which does meet her for inpatient criteria. Will change patient at this time. Bronchoscopy done per Dr. Daly; BAL washing sent. Echo reveal an EF of 74%, with moderate to severe tricuspid regurgitation and severe pulmonary hypertension. 04/20/17 Ongoing respiratory therapy with hypoxia; needing 4L of oxygen. Liver enzymes are back to normal. Potassium level has improved to 3.7. Renal function is stable. Sodium is still slightly high at 147. Waiting on results of bronchial washing and cytology; staging of gastric adenocarcinoma. Appreciate multiple consultants. Lasix 40 mg IV was given on 04/18 - cardiology has recommended gentle diuresis with 20 mg of IV Lasix daily. Continues on Rocephin 1 gm daily since 04/18/17. 04/21/17 Continue Rocephin for pulmonary coverage. Lasix 20mg po daily started yesterday for pulmonary edema-monitor for hypotension/orthostasis/elevating creatinine due to right heart dysfunction. Oral potassium 10mEq daily started due to Lasix use. Potassium and creatinine stable. 04/22/17 Still awaiting path and cytology reports. She is still on 3-4 L of oxygen, but feels like she is improving (except for new onset hemoptysis). Continue Rocephin for pulmonary coverage. Continue Lasix; radiographic improvement noted. Labs stable and hypernatremia has resolved. 04/23/17 20:11 Persistent hypoxia at rest (room air oxygen saturation 81% today) and with exercise-8 L supplemental oxygen required to maintain saturation above 90% with activities with exercise oximetry obtained earlier today. Will require 24-hour O2 at discharge. Supraclavicular lymph node biopsy obtained this afternoon for staging of gastric cancer. CEA negative, HER-2 testing pending. Continue Rocephin although bronchial aspirate with normal amrik. Today is day 6 ceftriaxone-discontinue after dose tomorrow. Transaminases climbing, bilirubin/alkaline phosphatase okay. ProBNP elevated. Continue diuresis as blood pressure permits. Electrolytes stable. 04/25- planning for placement of Port-A-Cath later today by Dr. Ortiz. No pathology is consistent with metastatic GI adenocarcinoma. Patient has decided to go ahead with chemotherapy treatment. Continues to be hypoxic requiring 5 liters. Significantly short of breath with minimal exertion. Continues on prednisone 40 grams daily. <Cele Morgan - Last Filed: 04/25/17 19:39> Objective Vital signs: Temperature 97.4 F 04/25/17 19:08 Pulse Rate 68 04/25/17 19:08 Respiratory Rate 24 04/25/17 19:08 Blood Pressure 120/63 04/25/17 19:08 Pulse Oximetry 93 04/25/17 19:08 Oxygen Delivery Method Nasal Cannula Oxygen Flow Rate 5 Height/Weight/BMI: Weight 54.7 kg Results - Labs CBC & Chem 7: 04/25/17 04:11 04/25/17 04:11 Microbiology Results: Microbiology 04/19/17 16:55 Bronchial Washing Acid Fast Bacilli Culture & Smear - Preliminary 04/19/17 16:55 Bal, Right Lower Lobe Gram Stain - Final 04/19/17 16:55 Bal, Right Lower Lobe Bronchial Aspirate Culture - Final Normal Respiratory Amrik 04/19/17 16:55 Bronchial Washing Fungal Culture - Preliminary Assessment and Plan (1) Respiratory failure with hypoxia Current visit: Yes Status: Acute (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 Current visit: Yes Status: Chronic (4) Pulmonary edema Current visit: Yes Status: Acute Assessment and Plan: Assessment Respiratory failure with hypoxia Pulmonary edema with hemoptysis Moderate to Severe tricuspid regurgitation with severe pulmonary hypertension, PA pressure of 72. Right ventricular dilation with global hypokinesis. Mild mitral regurgitation. LVH. Normal LV systolic function with EF of 74%. Hypernatremia (POA) - resolved Hypokalemia (POA) - resolved Thymoma Gastric adenocarcinoma Elevated liver enzymes and hyperbilirubinemia Elevated blood sugars Borderline thrombocytopenia Situational depression I have independently evaluated and examined this patient. I reviewed the chart, the patient's history, and the COSMETIC CONSULTANT/PA's documented findings as above. We discussed and formulated the assessment and plan as above with additions as below: Mrs. Schneider reported no real change in status, she is overwhelmed by recent health issues and worried about initiating chemotherapy. Dyspnea is unchanged from recent baseline. Port-A-Cath was placed this afternoon and chemotherapy is to start today. Respirations are nonlabored and air flow is good. Breath sounds are clear. Flat affect Blood sugars been modestly elevated since prednisone [id number] will be monitored and corrected insulin has been ordered. Will readdress situational depression after chemotherapy initiated to determine if SSRI should be initiated-patient overwhelmed today by prospect of starting chemotherapy. BUN up slightly-oral intake has been relatively poor for several days; reassess in a.m.-may require fluids in excess of those being given with chemotherapy. Lasix discontinued. Hospital Course Summary Disclaimer: The visit summary below is not to be considered part of the above Progress Note.
--- NOTE | 2017-04-25 14:27 | Cardiology Progress Note ---
Subjective Principal diagnosis: dyspnea <Coty Miranda - 04/25/17 14:27> Interval history: Carson is seen in her room, she is sitting on the bedside in mild distress. States she is going soon for VAD and chemo immediately following. She denies chest pain, palpitations or dizziness/ near syncope. <Coty Miranda - 04/25/17 14:27> Exam Vital signs: Temperature 97.1 F 04/28/17 08:00 Pulse Rate 91 04/28/17 08:00 Respiratory Rate 04/28/17 10:07 Blood Pressure 97/72 04/28/17 08:00 Pulse Oximetry 92 04/28/17 11:00 Oxygen Delivery Method Nasal Cannula Oxygen Flow Rate 2 <Sarthak Watson - 04/29/17 15:17> Temperature 96.8 F 04/25/17 08:14 Pulse Rate 84 04/25/17 08:49 Respiratory Rate 04/25/17 09:57 Blood Pressure 103/68 04/25/17 08:14 Pulse Oximetry 92 04/25/17 09:57 Oxygen Delivery Method Nasal Cannula Oxygen Flow Rate 5 <Coty Miranda 04/25/17 14:27> - Constitutional mild distress, cooperative <Coty Miranda 04/25/17 14:27> - Routine HEENT Exam Head: Present: normocephalic <Coty Miranda 04/25/17 14:27> ENT: Present: mucous membranes moist <Coty Miranda 04/25/17 14:27> - Routine Neck Exam Absent: JVD, carotid bruit <Coty Miranda 04/25/17 14:27> - Routine Chest/Breast/Axilla Exam Chest wall: Absent: tenderness <Coty Miranda 04/25/17 14:27> - Routine Respiratory Exam Present: crackles (bilateral bases). Absent: CTA bilaterally <Coty Miranda 04/25/17 14:27> - Routine Cardiovascular Exam Present: RRR, no murmur. Absent: JVD <Coty Miranda 04/25/17 14:27> - Routine Abdominal Exam Present: soft, normoactive bowel sounds <Coty Miranda 04/25/17 14:27> - Routine Extremities Exam Present: no edema <Coty Miranda - 04/25/17 14:27> - Routine Skin Exam Present: intact, dry, warm <Coty Miranda - 04/25/17 14:27> - Routine Neurological Exam Present: alert, oriented X3 <Coty Miranda - 04/25/17 14:27> - Routine Psychiatric Exam Present: normal affect, normal thought process <Coty Miranda - 04/25/17 14: 27> - Additional findings Additional findings: Laboratory Results - last 48 hr 04/24/17 04/25/17 04/25/17 09:18 04:11 04:11 WBC 8.8 RBC 4.75 Hgb 13.1 Hct 40.2 MCV 84.6 MCH 27.6 MCHC 32.6 RDW Std Deviation 46.9 Plt Count 129 L MPV 13.1 H Immature Gran % (Auto) 0.1 Neut % (Auto) 74.4 H Lymph % (Auto) 17.3 L [place] % (Auto) 7.9 Eos % (Auto) 0.1 Baso % (Auto) 0.2 Neut # 6.6 Lymph # 1.5 [place] # 0.7 Eos # 0.0 Baso # 0.0 Abs Immat Gran (auto) 0.01 Turbidity < 20 < 20 Sodium 141 142 Potassium 3.9 4.1 Chloride 104 106 Carbon Dioxide 23 22 Anion Gap 14 14 BUN 20.0 H 27.0 H Creatinine 0.9 D 0.7 D GFR Calculation 63 84 BUN/Creatinine Ratio 22 39 H Glucose 270 H 198 H Glucometer Calculated Osmolality 284 H 284 H Calcium 9.1 9.2 Magnesium 1.8 Total Bilirubin 0.70 Icterus Index < 2 < 2 AST 64 H ALT 92 H Alkaline Phosphatase 117 Total Protein 7.0 Albumin 3.6 Globulin 3.4 Albumin/Globulin Ratio 1.1 Specimen Hemolysis < 15 22 04/25/17 09:44 WBC RBC Hgb Hct MCV MCH MCHC RDW Std Deviation Plt Count MPV Immature Gran % (Auto) Neut % (Auto) Lymph % (Auto) [place] % (Auto) Eos % (Auto) Baso % (Auto) Neut # Lymph # [place] # Eos # Baso # Abs Immat Gran (auto) Turbidity Sodium Potassium Chloride Carbon Dioxide Anion Gap BUN Creatinine GFR Calculation BUN/Creatinine Ratio Glucose Glucometer 185 Calculated Osmolality Calcium Magnesium Total Bilirubin Icterus Index AST ALT Alkaline Phosphatase Total Protein Albumin Globulin Albumin/Globulin Ratio Specimen Hemolysis Acetaminophen (Tylenol) 650 mg PO Q5H PRN PRN Reason: Discomfort Budesonide (Pulmicort Inhalation) 0.5 mg AEROSOL RTBID [facility] Last Admin: 04/25/17 09:54 Dose: 0.5 mg Furosemide (Lasix) 20 mg PO DAILY [facility] Last Admin: 04/24/17 08:23 Dose: 20 mg Guaifenesin (Mucinex La) 600 mg PO BID [facility] Last Admin: 04/24/17 21:54 Dose: 600 mg Dexamethasone 10 mg/ Sodium (Chloride) 52.5 mls @ 157.5 mls/hr IV 1900 [facility] Stop: 04/25/17 19:19 Insulin Aspart (Novolog) 0 unit SQ SS PRN; Protocol PRN Reason: Hyperglycemia Magnesium Hydroxide (Mom) 30 ml PO DAILY PRN PRN Reason: Constipation Oamal-9-Ntqi Ethyl Esters (Lovaza) 1 gm PO DAILY [facility] Last Admin: 04/24/17 08:24 Dose: Not Given Ondansetron HCl (Zofran) 4 mg IVP Q6H PRN PRN Reason: Nausea Palonosetron (Aloxi) 0.25 mg IV O ONE Stop: 04/25/17 19:01 Polyethylene Glycol (Miralax) 17 gm PO DAILY PRN PRN Reason: Constipation Potassium Chloride (K-Dur) 10 meq PO WB [facility] Last Admin: 04/24/17 08:24 Dose: 10 meq Prednisone (Deltasone) 40 mg PO [facility] Last Admin: 04/24/17 12:29 Dose: 40 mg Prenat Multivit/[place]/Iron/Folic Ac (Roque ) 1 tab PO DAILY [facility] Last Admin: 04/24/17 08:24 Dose: 1 tab Sodium Chloride (Iv Flush) 10 - 80 ml IVF PRN PRN PRN Reason: Flushing Last Admin: 04/24/17 21:54 Dose: 10 ml Sodium Chloride (Normal Saline) 500 ml IV PRN PRN Last Admin: 04/21/17 14:22 Dose: 500 ml <Coty Miranda - 04/25/17 14:27> Progress Note-A&P (1) Respiratory failure with hypoxia Status: Acute (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 Has O2 concentrator at home. (2) Respiratory failure with hypoxia Status: Acute Assessment and plan: Remains on O2 at 2l/nc. Less respiratory difficulty today. (3) Encounter for preprocedural cardiovascular examination Status: Acute (4) Abnormal electrocardiogram Status: Acute (5) Thymoma Status: Chronic (6) Gastric adenocarcinoma Problem details: Recently Dx. Status: Chronic (7) Pulmonary hypertension Status: Acute Assessment and plan: pa pressures on echo 72mmhg <Coty Miranda 04/26/17 13:39> - Time Spent With Patient Total time spent is greater than 50% in coordination of care (as documented) at patient's floor/unit and/or counseling patient: <Sarthak Watson 04/29/17 15:17> Total time spent is greater than 50% in coordination of care (as documented) at patient's floor/unit and/or counseling patient: <Coty Miranda 04/25/17 14:27> less than 15 minutes <Coty Miranda 04/25/17 14:27> - Attestation Attestation Narrative: Recommendation After examining the patient I agree with the above assessment. I am involved in the formulation of the patient's plan of care. <Sarthak Watson 04/29/17 15:17> Sepsis Assessment - Evaluation Sepsis screening result: No Definite Risk <Coty Miranda 04/25/17 14:27> Hospital Course Summary Disclaimer: The visit summary below is not to be considered part of the above Progress Note. <Sarthak Watson 04/29/17 15:17> The visit summary below is not to be considered part of the above Progress Note. <Coty Miranda 04/25/17 14:27> Hospital Course: 04/18/17 Admission Patient outpatient observation under the care of Dr. Guillen for acute respiratory failure with hypoxia, hypernatremia with hypokalemia. Consultations placed to Dr. Hilario, Dr. Watson and Dr. Daly An echocardiogram is ordered for further cardiac evaluation. Obtain CRP and ESR for laboratory completeness. Patient did recently complete a ten-day course of Cipro for antimicrobial coverage. Will cover patient with IV Rocephin as there is some question regarding pulmonary infiltrates. She was given a one-time dose of 40 milligrams of IV Lasix as well as oral potassium supplementation. Oxygen therapy to maintain adequate saturations. 04/19/17 Appreciate consultation by multiple consultation specialists including Dr. Watson, Dr. Hilario and Dr. Daly. She does continue to require oxygen to maintain adequate saturations, which does meet her for inpatient criteria. Will change patient at this time. Bronchoscopy done per Dr. Daly; BAL washing sent. Echo reveal an EF of 74%, with moderate to severe tricuspid regurgitation and severe pulmonary hypertension. 04/20/17 Ongoing respiratory therapy with hypoxia; needing 4L of oxygen. Liver enzymes are back to normal. Potassium level has improved to 3.7. Renal function is stable. Sodium is still slightly high at 147. Waiting on results of bronchial washing and cytology; staging of gastric adenocarcinoma. Appreciate multiple consultants. Lasix 40 mg IV was given on 04/18 - cardiology has recommended gentle diuresis with 20 mg of IV Lasix daily. Continues on Rocephin 1 gm daily since 04/18/17. 04/21/17 Continue Rocephin for pulmonary coverage. Lasix 20mg po daily started yesterday for pulmonary edema-monitor for hypotension/orthostasis/elevating creatinine due to right heart dysfunction. Oral potassium 10mEq daily started due to Lasix use. Potassium and creatinine stable. 04/22/17 Still awaiting path and cytology reports. She is still on 3-4 L of oxygen, but feels like she is improving (except for new onset hemoptysis). Continue Rocephin for pulmonary coverage. Continue Lasix; radiographic improvement noted. Labs stable and hypernatremia has resolved. 04/23/17 20:11 Persistent hypoxia at rest (room air oxygen saturation 81% today) and with exercise-8 L supplemental oxygen required to maintain saturation above 90% with activities with exercise oximetry obtained earlier today. Will require 24-hour O2 at discharge. Supraclavicular lymph node biopsy obtained this afternoon for staging of gastric cancer. CEA negative, HER-2 testing pending. Continue Rocephin although bronchial aspirate with normal amrik. Today is day 6 ceftriaxone-discontinue after dose tomorrow. Transaminases climbing, bilirubin/alkaline phosphatase okay. ProBNP elevated. Continue diuresis as blood pressure permits. Electrolytes stable. 04/25- planning for placement of Port-A-Cath later today by Dr. Ortiz. No pathology is consistent with metastatic GI adenocarcinoma. Patient has decided to go ahead with chemotherapy treatment. Continues to be hypoxic requiring 5 liters. Significantly short of breath with minimal exertion. Continues on prednisone 40 grams daily. <Coty Miranda - 04/25/17 14:27>
[2017-04-25] MEDS ORDERED: DiphenhydrAMINE 50 MG/ML INJECTION IVP PRN (14:40)
[2017-04-25] MEDS ORDERED: HYDROCORTISONE SOD SUCC 100mg/2ml INJECTION IVP PRN (14:41)
[2017-04-25] MEDS ORDERED: METHYLPREDNISOLONE SOD SUCC 125mg/2ml INJECTION IVP PRN (14:42)
[2017-04-25] MEDS ORDERED: D5W 500 ML IV PRN (14:46)
--- NOTE | 2017-04-25 16:11 | Anesthesia Preoperative Report ---
Anesthesia Preoperative Record - Date and Time Date: 04/25/17 Preoperative Diagnosis: Dysnea Proposed Procedure: Power Port Placement NPO Since Date: 04/24/17 NPO Since Time: 23:55 Allergies/Adverse Reactions: Allergies Allergy/AdvReac Type Severity Reaction Status Date / Time No Known Allergies Allergy Verified 04/18/17 13:38 - Vital Signs Vital Signs: Temperature 97.0 F 04/25/17 15:49 Pulse Rate 87 04/25/17 15:49 Respiratory Rate 20 04/25/17 15:49 Blood Pressure 135/69 04/25/17 15:49 Pulse Oximetry 98 04/25/17 15:49 Oxygen Delivery Method Nasal Cannula Oxygen Flow Rate 6 Height and Weight: Weight 54.7 kg - Medications Inpatient Medications: Current Medications Acetaminophen (Tylenol) 650 mg PO Q5H PRN PRN Reason: Discomfort Budesonide (Pulmicort Inhalation) 0.5 mg AEROSOL RTBID [facility] Last Admin: 04/25/17 09:54 Dose: 0.5 mg Dextrose (Dextrose 5% In Water) 500 ml IV PRN PRN Diphenhydramine HCl (Benadryl) 50 mg IVP PRN PRN PRN Reason: Itching Furosemide (Lasix) 20 mg PO DAILY [facility] Last Admin: 04/24/17 08:23 Dose: 20 mg Guaifenesin (Mucinex La) 600 mg PO BID [facility] Last Admin: 04/24/17 21:54 Dose: 600 mg Hydrocortisone Sodium Succinate (Solu-Cortef) 100 mg IVP PRN PRN Dexamethasone 10 mg/ Sodium (Chloride) 52.5 mls @ 157.5 mls/hr IV 1900 [facility] Stop: 04/25/17 19:19 Oxaliplatin 100 mg/ Dextrose 250 mls @ 125 mls/hr IV 0 [facility] Stop: 04/25/17 21:29 Leucovorin Calcium 616 mg/ (Dextrose) 250 mls @ 125 mls/hr IV 1929 [facility] Stop: 04/25/17 21:29 Fluorouracil 460 mg/ Sodium (Chloride) 9.2 mls @ 184 mls/hr IV 2129 [facility] Stop: 04/25/17 21:32 Fluorouracil 1,540 mg/ (Dextrose) 530.8 mls @ 23.078 mls/hr IV 2139 [facility] Stop: 04/27/17 20:39 Lactated Ringer's (Lactated Ringers) 1,000 mls @ 50 mls/hr IV .Q20H [facility] Insulin Aspart (Novolog) 0 unit SQ SS PRN; Protocol PRN Reason: Hyperglycemia Magnesium Hydroxide (Mom) 30 ml PO DAILY PRN PRN Reason: Constipation Methylprednisolone Sodium Succinate (Solu-Medrol) 125 mg IVP PRN PRN [place]-3-Mpwq Ethyl Esters (Lovaza) 1 gm PO DAILY [facility] Last Admin: 04/24/17 08:24 Dose: Not Given Ondansetron HCl (Zofran) 4 mg IVP Q6H PRN PRN Reason: Nausea Palonosetron (Aloxi) 0.25 mg IV O ONE Stop: 04/25/17 19:01 Polyethylene Glycol (Miralax) 17 gm PO DAILY PRN PRN Reason: Constipation Potassium Chloride (K-Dur) 10 meq PO WB [facility] Last Admin: 04/24/17 08:24 Dose: 10 meq Prednisone (Deltasone) 40 mg PO [facility] Last Admin: 04/24/17 12:29 Dose: 40 mg Prenat Multivit/[place]/Iron/Folic Ac (Roque ) 1 tab PO DAILY [facility] Last Admin: 04/24/17 08:24 Dose: 1 tab Sodium Chloride (Iv Flush) 10 - 80 ml IVF PRN PRN PRN Reason: Flushing Last Admin: 04/24/17 21:54 Dose: 10 ml Sodium Chloride (Normal Saline) 500 ml IV PRN PRN Last Admin: 04/21/17 14:22 Dose: 500 ml Home Medications: Home Medications Medication Instructions Recorded Confirmed Type Calcium Carbonate/Vitamin D3 1 tab PO DAILY 04/10/17 04/18/17 History [Calcium 600-Vit D3 2,500 Sftgl] Ciprofloxacin [Cipro] 500 mg PO BID 04/10/17 04/18/17 History Multivit,Calc,Mins/Iron/Folic 1 each PO DAILY 04/10/17 04/18/17 History [Women's Daily Caplet] [place]-3 Fatty Acids/Fish Oil [Fish 1 cap PO DAILY 04/10/17 04/18/17 History Oil 1,200 mg Softgel] Is Patient on Beta Anshul?: No - Medical History Respiratory: DENIES: Asthma, Bronchitis, Chronic Obstructive Pulmonary Disease (COPD), Dyspnea, Orthopnea, Pulmonary Embolism, Pneumonia, Upper Respiratory Infection, Pulmonary Edema, Sleep Apnea, Tuberculosis, Other Cardiovascular: DENIES: Abnormal EKG, Angina, Arrhythmia, Congestive Heart Failure, Coronary Artery Disease, Heart Murmur, Hypertension, Hypotension, High Cholesterol, Myocardial Infarction, Rheumatic Fever, Valvular Heart Disease, Other Gastrointestional: DENIES: Obstructive Bowel, Hepatitis, Cirrhosis, Nausea or Vomiting Present, Gastroesophageal Reflux Disease, Gastrointestinal Bleeding, Hiatal Hernia, Ulcer , Morbid Obesity, Other Neuro/Musculoskeletal: Denies: HX.MS.OSAR, Back Problems, Cerebrovascular Accident, Depression, Headaches, Loss of Consciousness, Muscle Weakness, Neuromuscular Disorder, Paralysis, Paresthesia, Syncope, Seizures, Other Renal/Endocrine: DENIES: Diabetes Mellitus Type 1, Diabetes Mellitus Type 2, Renal Failure, Dialysis, Thyroid Disease, Weight Loss, Weight Gain, Other Other History: Reports: Cancer (Gastric) - Surgical History HEENT Surgeries: Reports: Other (NODULE L NECK/CLAVICLE) Respiratory Surgery/Treatments: Reports: Oxygen Administration (wears 2 L at night) GI Surgery/Treatments: Reports: Colonoscopy (5 years ago February 2012), EGD () Anesthesia Reactions: None Hx Family Anesthesia Reaction: No History of Motion Sickness: No - Social History Smoking Status: Never smoker Hx Chewing Tobacco Use: No Second Hand Exposure: No Substance Use Type: does not use Alcohol Intake Frequency: does not drink - Pertinent Findings Laboratory: CBC and BMP 04/25/17 04:11 04/25/17 04:11 BMP 04/25/17 04:11 Sodium 142 Potassium 4.1 Chloride 106 Carbon Dioxide 22 BUN 27.0 H Creatinine 0.7 D Glucose 198 H Calcium 9.2 Liver Function 04/25/17 Range/Units 04:11 Total Bilirubin 0.70 (0.20-1.30) MG/DL AST 64 H (14-36) U/L ALT 92 H (9-52) U/L Alkaline Phosphatase 117 (38-126) U/L Albumin 3.6 (3.5-5.0) G/DL EKG Rhythm: Normal Sinus Rhythm - Physical Exam Respiratory Exam: Present: lungs clear, bilateral breath sounds equal Cardiovascular Exam: Present: regular rate and rhythm, no murmur - Airway Assessment Mallampati Score: III TMD: 2 Fingerbreadths Neck Extension: fair Teeth: patial upper dentures, partial lower dentures Overall Assessment: may be difficult intubation - ASA ASA Score: 3 - Plan Anesthesia: General TIVA - Discussion Discussion: Discussed risks/options/alternatives of anesthesia and questions answered. Patient consents. Nursing pain assessment noted. Attestation Statement: Prior to the delivery of any anesthetic medication, I examined the patient, developed the plan, obtained the patient's consent and discussed the risk and benefits of the procedure with the patient/guardian. - Additional Information Seen by Anesthesia: Yes
[2017-04-25] MEDS ORDERED: LR 1,000 ML IV SCH (16:15)
--- NOTE | 2017-04-25 16:27 | Anesthesia Preoperative Report ---
Anesthesia Preoperative Record - Date and Time Date: 04/25/17 Preoperative Diagnosis: Dysnea Proposed Procedure: Power Port Placement NPO Since Date: 04/25/17 NPO Since Time: 00:00 Allergies/Adverse Reactions: Allergies Allergy/AdvReac Type Severity Reaction Status Date / Time No Known Allergies Allergy Verified 04/18/17 13:38 - Vital Signs Vital Signs: Temperature 97.0 F 04/25/17 15:49 Pulse Rate 87 04/25/17 15:49 Respiratory Rate 20 04/25/17 15:49 Blood Pressure 135/69 04/25/17 15:49 Pulse Oximetry 98 04/25/17 15:49 Oxygen Delivery Method Nasal Cannula Oxygen Flow Rate 6 Height and Weight: Weight 54.7 kg - Medications Inpatient Medications: Current Medications Acetaminophen (Tylenol) 650 mg PO Q5H PRN PRN Reason: Discomfort Budesonide (Pulmicort Inhalation) 0.5 mg AEROSOL RTBID [facility] Last Admin: 04/25/17 09:54 Dose: 0.5 mg Dextrose (Dextrose 5% In Water) 500 ml IV PRN PRN Diphenhydramine HCl (Benadryl) 50 mg IVP PRN PRN PRN Reason: Itching Furosemide (Lasix) 20 mg PO DAILY [facility] Last Admin: 04/24/17 08:23 Dose: 20 mg Guaifenesin (Mucinex La) 600 mg PO BID [facility] Last Admin: 04/24/17 21:54 Dose: 600 mg Hydrocortisone Sodium Succinate (Solu-Cortef) 100 mg IVP PRN PRN Dexamethasone 10 mg/ Sodium (Chloride) 52.5 mls @ 157.5 mls/hr IV 1900 [facility] Stop: 04/25/17 19:19 Oxaliplatin 100 mg/ Dextrose 250 mls @ 125 mls/hr IV 1929 [facility] Stop: 04/25/17 21:29 Leucovorin Calcium 616 mg/ (Dextrose) 250 mls @ 125 mls/hr IV 1929 [facility] Stop: 04/25/17 21:29 Fluorouracil 460 mg/ Sodium (Chloride) 9.2 mls @ 184 mls/hr IV 2129 [facility] Stop: 04/25/17 21:32 Fluorouracil 1,540 mg/ (Dextrose) 530.8 mls @ 23.078 mls/hr IV 2139 [facility] Stop: 04/27/17 20:39 Lactated Ringer's (Lactated Ringers) 1,000 mls @ 50 mls/hr IV .Q20H [facility] Last Admin: 04/25/17 16:20 Dose: 50 mls/hr Insulin Aspart (Novolog) 0 unit SQ SS PRN; Protocol PRN Reason: Hyperglycemia Magnesium Hydroxide (Mom) 30 ml PO DAILY PRN PRN Reason: Constipation Methylprednisolone Sodium Succinate (Solu-Medrol) 125 mg IVP PRN PRN Kctle-4-Dcio Ethyl Esters (Lovaza) 1 gm PO DAILY [facility] Last Admin: 04/24/17 08:24 Dose: Not Given Ondansetron HCl (Zofran) 4 mg IVP Q6H PRN PRN Reason: Nausea Palonosetron (Aloxi) 0.25 mg IV O ONE Stop: 04/25/17 19:01 Polyethylene Glycol (Miralax) 17 gm PO DAILY PRN PRN Reason: Constipation Potassium Chloride (K-Dur) 10 meq PO WB [facility] Last Admin: 04/24/17 08:24 Dose: 10 meq Prednisone (Deltasone) 40 mg PO WB [facility] Last Admin: 04/24/17 12:29 Dose: 40 mg Prenat Multivit/[place]/Iron/Folic Ac (Roque ) 1 tab PO DAILY [facility] Last Admin: 04/24/17 08:24 Dose: 1 tab Sodium Chloride (Iv Flush) 10 - 80 ml IVF PRN PRN PRN Reason: Flushing Last Admin: 04/24/17 21:54 Dose: 10 ml Sodium Chloride (Normal Saline) 500 ml IV PRN PRN Last Admin: 04/21/17 14:22 Dose: 500 ml Home Medications: Home Medications Medication Instructions Recorded Confirmed Type Calcium Carbonate/Vitamin D3 1 tab PO DAILY 04/10/17 04/18/17 History [Calcium 600-Vit D3 2,500 Sftgl] Ciprofloxacin [Cipro] 500 mg PO BID 04/10/17 04/18/17 History Multivit,Calc,Mins/Iron/Folic 1 each PO DAILY 04/10/17 04/18/17 History [Women's Daily Caplet] [place]-3 Fatty Acids/Fish Oil [Fish 1 cap PO DAILY 04/10/17 04/18/17 History Oil 1,200 mg Softgel] Is Patient on Beta Anshul?: No - Medical History Respiratory: Reports: Dyspnea, Pulmonary Embolism, Pulmonary Edema, Other ( Thymoma, Pumonary infiltrates, D-Dimer 1200, hypoxemia, SOB with Exertion, ) Cardiovascular: DENIES: Abnormal EKG, Angina, Arrhythmia, Congestive Heart Failure, Coronary Artery Disease, Heart Murmur, Hypertension, Hypotension, High Cholesterol, Myocardial Infarction, Rheumatic Fever, Valvular Heart Disease, Other Gastrointestional: Reports: Other (Gastric Adenocarcinoma with Mets) Neuro/Musculoskeletal: Denies: HX.MS.OSAR, Back Problems, Cerebrovascular Accident, Depression, Headaches, Loss of Consciousness, Muscle Weakness, Neuromuscular Disorder, Paralysis, Paresthesia, Syncope, Seizures, Other Renal/Endocrine: DENIES: Diabetes Mellitus Type 1, Diabetes Mellitus Type 2, Renal Failure, Dialysis, Thyroid Disease, Weight Loss, Weight Gain, Other Other History: Reports: Cancer - Surgical History HEENT Surgeries: Reports: Other (NODULE L NECK/CLAVICLE) Respiratory Surgery/Treatments: Reports: Oxygen Administration (wears 2 L at night) GI Surgery/Treatments: Reports: Colonoscopy (5 years ago February 2012), EGD () Surgery/Treatment: DENIES: Dialysis Anesthesia Reactions: None Hx Family Anesthesia Reaction: No History of Motion Sickness: No - Social History Smoking Status: Never smoker Hx Chewing Tobacco Use: No Second Hand Exposure: No Substance Use Type: does not use Alcohol Intake Frequency: does not drink - Pertinent Findings Laboratory: CBC and BMP 04/25/17 04:11 04/25/17 04:11 BMP 04/25/17 04:11 Sodium 142 Potassium 4.1 Chloride 106 Carbon Dioxide 22 BUN 27.0 H Creatinine 0.7 D Glucose 198 H Calcium 9.2 Liver Function 04/25/17 Range/Units 04:11 Total Bilirubin 0.70 (0.20-1.30) MG/DL AST 64 H (14-36) U/L ALT 92 H (9-52) U/L Alkaline Phosphatase 117 (38-126) U/L Albumin 3.6 (3.5-5.0) G/DL EKG Rhythm: Normal Sinus Rhythm - Physical Exam Respiratory Exam: Present: lungs clear, bilateral breath sounds equal, tachypnea , other (pulm infiltrates) Cardiovascular Exam: Present: regular rate and rhythm, no murmur - Airway Assessment Mallampati Score: II TMD: 2 Fingerbreadths Neck Extension: good Overall Assessment: may be difficult intubation - ASA ASA Score: 3 - Plan Anesthesia: General TIVA, MAC - Discussion Discussion: Discussed risks/options/alternatives of anesthesia and questions answered. Patient consents. Nursing pain assessment noted. Attestation Statement: Prior to the delivery of any anesthetic medication, I examined the patient, developed the plan, obtained the patient's consent and discussed the risk and benefits of the procedure with the patient/guardian. - Additional Information Seen by Anesthesia: Yes (This preop report replaces the previous one done by me on 04/25/17)
[2017-04-25] MEDS ORDERED: BUPIVACAINE 0.25%/EPI 1:200,000 30ml SDV ONE (16:33)
[2017-04-25] MEDS ORDERED: PROPOFOL 500 MG/50 ML VIAL IV ONE (16:52)
[2017-04-25] MEDS ORDERED: FentaNYL 100 MCG/2 ML INJECTION ONE (16:57)
[2017-04-25] MEDS ORDERED: PHENYLEPHRINE INJ 10 MG/ML VIAL IV ONE (17:13)
[2017-04-25] MEDS ORDERED: BUPIVACAINE 0.25%/EPI 1:200,000 30ml SDV INFIL ONE (17:19)
[2017-04-25] MEDS ORDERED: SALINE FLUSH 10ml SYRINGE ONE ×2 (17:21→17:27)
[2017-04-25] MEDS ORDERED: CEFAZOLIN 1 G INJECTION ONE (17:21)
[2017-04-25] MEDS ORDERED: MIDAZOLAM 2mg/2ml INJECTION ONE (17:23)
--- NOTE | 2017-04-25 17:41 | General Surgery Procedure Note ---
Date of Procedure: 04/25/17 Surgeon: Diana Security Program Manager: Teofilo Pimentel APRN Postoperative Diagnosis: poor venous access, Procedure: Placement of Power Port and access of the Port. Estimated Blood Loss: See Anesthesia Record. Pathology: none sent
--- NOTE | 2017-04-25 17:50 | Anesthesia Postoperative Note ---
- Date and Time Date: 04/25/17 Time: 17:50 - Status Patient Participated in Evaluation: Patient Participated in Person Vital Signs: Temperature 97.0 F 04/25/17 15:49 Pulse Rate 87 04/25/17 15:49 Respiratory Rate 20 04/25/17 15:49 Blood Pressure 135/69 04/25/17 15:49 Pulse Oximetry 96 04/25/17 16:25 Oxygen Delivery Method Nasal Cannula Oxygen Flow Rate 5 Respiratory Function: Airway Patent, Regular Respirations Cardiovascular Function: Regular Pulse EKG Rhythm: Normal Sinus Rhythm Mental Status: Alert and Oriented Pain Intensity: 3 Hydration: IV Infusing Complications During Recover: None Apparent - Follow-Up Instructions Instructions: Per Surgeon
[2017-04-25] MEDS ORDERED: CEFAZOLIN 1 G INJECTION IVP ONE (18:11)
[2017-04-25] MEDS: PredniSONE 20 MG TABLET PO SCH (18:44)
[2017-04-25] MEDS: GUAIFENESIN LA 600 MG TABLET PO SCH ×2 (18:45→21:38)
[2017-04-25] MEDS: FUROSEMIDE 20 MG TABLET PO SCH (18:45)
[2017-04-25] MEDS: MULTIVITAMIN PO SCH (18:45)
[2017-04-25] MEDS: FISH OIL PO SCH (18:48)
[2017-04-25] MEDS ORDERED: DEXAMETHASONE INJ 10 MG in NS 50 ML IV SCH (19:00)
[2017-04-25] MEDS ORDERED: PALONOSETRON 0.25 MG/5 ML INJECTION IV ONE (19:00)
[2017-04-25] MEDS ORDERED: OXALIPLATIN IV SCH (19:30)
[2017-04-25] MEDS ORDERED: D5W IV SCH ×2 (19:30)
[2017-04-25] MEDS ORDERED: LEUCOVORIN IV SCH (19:30)
[2017-04-25] MEDS: SALINE FLUSH 10ml SYRINGE IVF PRN (19:44)
[2017-04-25] MEDS: INSULIN ASPART 100unit/ml INJECTION SQ PRN (20:48)
[2017-04-25] MEDS ORDERED: FLUOROURACIL IV SCH (21:30)
[2017-04-25] MEDS ORDERED: RTU SALINE IV SCH (21:30)
[2017-04-25] MEDS: D5W IV SCH (23:13)
[2017-04-25] MEDS: FLUOROURACIL IV SCH (23:13)
[2017-04-26] MEDS: SALINE FLUSH 10ml SYRINGE IVF PRN ×3 (04:29→22:15)
[2017-04-26] MEDS: INSULIN ASPART 100unit/ml INJECTION SQ PRN ×3 (06:34→21:06)
[2017-04-26] MEDS: BUDESONIDE INH.SOLN 0.5mg/2ml NEB AEROSOL SCH ×2 (07:25→18:54)
--- NOTE | 2017-04-26 08:26 | XRay Report ---
Indication: POST POWERPORT PLACEMENT PROCEDURE: XR portacath w fluoro w cxr 1v: Encounter: Initial Comparison: April 22, 2017 Findings: New right internal jugular approach central venous port catheter with the tip projecting over the lower SVC. No pneumothorax. Bilateral airspace disease is again seen without significant change. No gross pleural effusion. Heart size and mediastinal contours are stable. Impression: New right IJ port catheter as above. .
[2017-04-26] MEDS: FISH OIL PO SCH (08:30)
[2017-04-26] MEDS: MULTIVITAMIN PO SCH (08:32)
[2017-04-26] MEDS: GUAIFENESIN LA 600 MG TABLET PO SCH ×2 (08:32→21:04)
[2017-04-26] MEDS: PredniSONE 20 MG TABLET PO SCH (08:37)
--- NOTE | 2017-04-26 09:36 | Progress Note ---
Oncology Subjective She was started on chemotherapy FOLFOX yesterday. She has no nausea or vomiting. She short of breath during exertion. So far she is tolerating chemotherapy well. She is worried to be at home by herself. Her daughter lives in [place]. She said her good neighbor would stay with her and help her. Exam Vital signs: Temperature 96.1 F L 04/26/17 04:00 Pulse Rate 95 04/26/17 04:00 Respiratory Rate 24 04/26/17 07:15 Blood Pressure 111/82 04/26/17 04:00 Pulse Oximetry 94 04/26/17 07:15 Oxygen Delivery Method High Flow Nasal Cannula Oxygen Flow Rate 6 - Constitutional no acute distress, well nourished, cooperative Comments: She appears nervous and worried. - Routine Respiratory Exam Present: rhonchi, crackles. Absent: rales, wheezes Comments: She is on oxygen via nasal cannula. - Routine Cardiovascular Exam Present: RRR - Routine Abdominal Exam Present: soft, normoactive bowel sounds, non tender - Routine Extremities Exam Absent: clubbing, edema, joint swelling - Routine Skin Exam Present: intact - Routine Neurological Exam Present: alert, oriented X3 Oncology Results - Labs CBC & Chem 7: 04/26/17 04:27 04/26/17 04:27 Labs: Short CBC 04/26/17 Range/Units 04:27 WBC 10.2 (4.5-11.0) T/MM3 Hgb 12.9 (12-16) GM/DL Hct 40.1 (36-46) % Plt Count 132 (130-400) T/MM3 BMP 04/26/17 04:27 Sodium 139 Potassium 4.2 Chloride 104 Carbon Dioxide 21 L BUN 28.0 H Creatinine 0.8 Glucose 316 H Calcium 9.0 Liver Function 04/26/17 Range/Units 04:27 Albumin 3.5 (3.5-5.0) G/DL Assessment and Plan Assessment and Plan: A/P: 1- 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 She was started on a palliative course of chemotherapy FOLFOX yesterday. She is tolerating chemotherapy well. 2- Pulmonary infiltrates with hypoxemia probably due to lymphangitic spread of the cancer. 3- Thymoma. Plan 1- Will continue with cycle one of FOLFOX. 2- Continue with supportive care including antiemetic as needed. 3- Oxygen nasal cannula. - Time Spent With Patient Total time spent is greater than 50% in coordination of care (as documented) at patient's floor/unit and/or counseling patient: 25 - 35 minutes Sepsis Assessment - Evaluation Sepsis screening result: No Definite Risk
--- NOTE | 2017-04-26 09:41 | Operative Note ---
DATE OF PROCEDURE 04/25/2017 SURGEON Matt Ortiz M.D. PREOPERATIVE DIAGNOSIS Metastatic gastric carcinoma, need for long-term central venous access to facilitate palliative chemotherapy. POSTOPERATIVE DIAGNOSIS Metastatic gastric carcinoma, need for long-term central venous access to facilitate palliative chemotherapy. PROCEDURE Insertion of PowerPort catheter under sonographic and fluoroscopic guidance. ANESTHESIA TIVA converted to MAC anesthesia. BRIEF HISTORY/INDICATIONS Mrs. Carson Schneider is a 66-year-old female has had the misfortune of developing metastatic gastric cancer. After discussion with her oncologist, it was elected that she would proceed with palliative chemotherapy. It has been recommended to the patient that she undergo a PowerPort catheter to facilitate her upcoming chemotherapy. For completeness please refer to notes included in the patient's chart. DESCRIPTION OF PROCEDURE After informed consent was obtained, the patient was brought to the operative suite, placed on the table in supine fashion. The right lateral neck and anterior chest were then prepped and draped in a sterile fashion. First, the patient was placed in Trendelenburg position and ultrasonography was performed along the right lateral neck. One could see a round hypoechoic structure which collapsed with pressure applied via the ultrasound transducer. This corresponded with the internal jugular vein. 0.25% Marcaine with epinephrine was injected overlying the anatomic location of the internal jugular vein. A Cook needle was then introduced through the area of analgesia and into the underlying internal jugular vein under sonographic guidance. A guidewire was advanced through the Cook needle and the Cook needle was then removed. Fluoroscopy was then performed which revealed the guidewire to be within the atrium and right ventricle. A 5-6 mm incision was then made adjacent to the exit site of the guidewire and extended out laterally. Additional 0.25% Marcaine with epinephrine was injected about two fingerbreadths below the right clavicle. A 3 cm incision was then made through the area of analgesia. A subcutaneous pocket was then created just inferior or caudad to this incision. A PowerPort catheter reservoir was then brought forth into the operative field and placed within the subcutaneous pocket and subsequently imbricated to the underlying pectoralis fascia in a triangulated fashion by placing three simple interrupted sutures of 0-Prolene through the underlying pectoralis fascia and subsequently through the holes within the reservoir itself. The catheter was then tunneled between the two incisions. A dilator and tear-away sheath were then advanced over the guidewire. The guidewire and dilator were then removed. The catheter was then quickly advanced in the tear-away sheath and the tear- away sheath was then removed. Under fluoroscopy, the tip of the catheter was then placed near the junction between the superior vena cava and right atrium and cut to the appropriate length and subsequently attached to the PowerPort reservoir. The PowerPort reservoir was then accessed and was easily aspirated and flushed with heparinized saline. Both skin incisions were then closed in a subcuticular fashion with 4-0 Monocryl. The patient tolerated the procedure without difficulty. A postprocedure chest x-ray will be obtained postoperatively. The results of this film are pending at the time of dictation. DAR
--- NOTE | 2017-04-26 13:42 | Cardiology Progress Note ---
Subjective Principal diagnosis: dyspnea <Coty Miranda - 04/26/17 13:42> Interval history: Carson is seen in her room on the Medical unit. Her daughter from [place] is at the bedside. She denies cardiac complaints, remains on O2 for dyspnea. <Coty Miranda - 04/26/17 15:54> Exam Vital signs: Temperature 97.1 F 04/28/17 08:00 Pulse Rate 91 04/28/17 08:00 Respiratory Rate 24 04/28/17 10:07 Blood Pressure 97/72 04/28/17 08:00 Pulse Oximetry 92 04/28/17 11:00 Oxygen Delivery Method Nasal Cannula Oxygen Flow Rate 2 <Sarthak Watson - 04/29/17 15:19> Temperature 96.8 F 04/26/17 11:48 Pulse Rate 91 04/26/17 11:48 Respiratory Rate 16 04/26/17 11:48 Blood Pressure 100/67 04/26/17 11:48 Pulse Oximetry 91 04/26/17 13:20 Oxygen Delivery Method [place] Nasal Cannula Oxygen Flow Rate 6 <Coty Miranda 04/26/17 13:42> - Constitutional no acute distress, thin, cooperative <Coty Miranda 04/26/17 15:54> - Routine HEENT Exam Head: Present: normocephalic <Coty Miranda 04/26/17 15:54> ENT: Present: mucous membranes moist <Coty Miranda 04/26/17 15:54> - Routine Neck Exam Absent: JVD, carotid bruit <Coty Miranda 04/26/17 15:54> - Routine Chest/Breast/Axilla Exam Chest wall: Absent: tenderness <Coty Miranda 04/26/17 15:54> - Routine Respiratory Exam Present: crackles. Absent: CTA bilaterally <Coty Miranda 04/26/17 15:54> - Routine Cardiovascular Exam Present: RRR, no murmur. Absent: JVD <Coty Miranda 04/26/17 15:54> - Routine Abdominal Exam Present: soft, normoactive bowel sounds <Coty Miranda 04/26/17 15:54> - Routine Extremities Exam Present: no edema <Coty Miranda - 04/26/17 15:54> - Routine Skin Exam Present: intact, dry, warm <Coty Miranda - 04/26/17 15:54> - Routine Neurological Exam Present: alert, oriented X3 <Coty Miranda - 04/26/17 15:54> - Routine Psychiatric Exam Present: normal affect, normal thought process <Coty Miranda - 04/26/17 15: 54> - Additional findings Additional findings: Laboratory Results - last 48 hr 04/25/17 04/25/17 04/25/17 04:11 04:11 09:44 WBC 8.8 RBC 4.75 Hgb 13.1 Hct 40.2 MCV 84.6 MCH 27.6 MCHC 32.6 RDW Std Deviation 46.9 Plt Count 129 L MPV 13.1 H Immature Gran % (Auto) 0.1 Neut % (Auto) 74.4 H Lymph % (Auto) 17.3 L [place] % (Auto) 7.9 Eos % (Auto) 0.1 Baso % (Auto) 0.2 Neut # 6.6 Lymph # 1.5 [place] # 0.7 Eos # 0.0 Baso # 0.0 Abs Immat Gran (auto) 0.01 Neutrophils % (Manual) Lymphocytes % (Manual) Neutrophils # (Manual) Lymphocytes # (Manual) RBC Morph Comment Turbidity < 20 Sodium 142 Potassium 4.1 Chloride 106 Carbon Dioxide 22 Anion Gap 14 BUN 27.0 H Creatinine 0.7 D GFR Calculation 84 BUN/Creatinine Ratio 39 H Glucose 198 H Glucometer 185 Calculated Osmolality 284 H Calcium 9.2 Phosphorus Magnesium Total Bilirubin 0.70 Icterus Index < 2 AST 64 H ALT 92 H Alkaline Phosphatase 117 Total Protein 7.0 Albumin 3.6 Globulin 3.4 Albumin/Globulin Ratio 1.1 Specimen Hemolysis 22 04/25/17 04/25/17 04/26/17 14:09 20:24 04:27 WBC 10.2 RBC 4.67 Hgb 12.9 Hct 40.1 MCV 85.9 MCH 27.6 MCHC 32.2 RDW Std Deviation 48.1 Plt Count 132 MPV 12.3 Immature Gran % (Auto) Neut % (Auto) Lymph % (Auto) [place] % (Auto) Eos % (Auto) Baso % (Auto) Neut # Lymph # [place] # Eos # Baso # Abs Immat Gran (auto) Neutrophils % (Manual) 92.0 H Lymphocytes % (Manual) 8.0 L Neutrophils # (Manual) 9.4 H Lymphocytes # (Manual) 0.8 L RBC Morph Comment Normal Turbidity Sodium Potassium Chloride Carbon Dioxide Anion Gap BUN Creatinine GFR Calculation BUN/Creatinine Ratio Glucose Glucometer 155 243 Calculated Osmolality Calcium Phosphorus Magnesium Total Bilirubin Icterus Index AST ALT Alkaline Phosphatase Total Protein Albumin Globulin Albumin/Globulin Ratio Specimen Hemolysis 04/26/17 04/26/17 04/26/17 04:27 06:30 09:59 WBC RBC Hgb Hct MCV MCH MCHC RDW Std Deviation Plt Count MPV Immature Gran % (Auto) Neut % (Auto) Lymph % (Auto) [place] % (Auto) Eos % (Auto) Baso % (Auto) Neut # Lymph # [place] # Eos # Baso # Abs Immat Gran (auto) Neutrophils % (Manual) Lymphocytes % (Manual) Neutrophils # (Manual) Lymphocytes # (Manual) RBC Morph Comment Turbidity < 20 Sodium 139 Potassium 4.2 Chloride 104 Carbon Dioxide 21 L Anion Gap 14 BUN 28.0 H Creatinine 0.8 GFR Calculation 72 BUN/Creatinine Ratio 35 H Glucose 316 H Glucometer 229 312 Calculated Osmolality 286 H Calcium 9.0 Phosphorus 5.9 H Magnesium 2.0 Total Bilirubin Icterus Index < 2 AST ALT Alkaline Phosphatase Total Protein Albumin 3.5 Globulin Albumin/Globulin Ratio Specimen Hemolysis < 15 Acetaminophen (Tylenol) 650 mg PO Q5H PRN PRN Reason: Discomfort Budesonide (Pulmicort Inhalation) 0.5 mg AEROSOL RTBID [facility] Last Admin: 04/26/17 07:25 Dose: 0.5 mg Dextrose (Dextrose 5% In Water) 500 ml IV PRN PRN Diphenhydramine HCl (Benadryl) 50 mg IVP PRN PRN PRN Reason: Itching Guaifenesin (Mucinex La) 600 mg PO BID [facility] Last Admin: 04/26/17 08:32 Dose: 600 mg Hydrocortisone Sodium Succinate (Solu-Cortef) 100 mg IVP PRN PRN Fluorouracil 1,540 mg/ (Dextrose) 530.8 mls @ 23.078 mls/hr IV 2140 [facility] Stop: 04/27/17 20:39 Last Infusion: 04/26/17 05:36 Dose: 23.078 mls/hr Insulin Aspart (Novolog) 0 unit SQ SS PRN; Protocol PRN Reason: Hyperglycemia Last Admin: 04/26/17 12:01 Dose: 4 unit Levalbuterol HCl (Xopenex 1.25mg/3ml) 1.25 mg AEROSOL BID [facility] Magnesium Hydroxide (Mom) 30 ml PO DAILY PRN PRN Reason: Constipation Methylprednisolone Sodium Succinate (Solu-Medrol) 125 mg IVP PRN PRN Joync-7-Smxu Ethyl Esters (Lovaza) 1 gm PO DAILY [facility] Last Admin: 04/26/17 08:30 Dose: Not Given Ondansetron HCl (Zofran) 4 mg IVP Q6H PRN PRN Reason: Nausea Polyethylene Glycol (Miralax) 17 gm PO DAILY PRN PRN Reason: Constipation Potassium Chloride (K-Dur) 10 meq PO WB [facility] Last Admin: 04/26/17 08:36 Dose: 10 meq Prednisone (Deltasone) 40 mg PO WB [facility] Last Admin: 04/26/17 08:37 Dose: 40 mg Prenat Multivit/[place]/Iron/Folic Ac (Roque ) 1 tab PO DAILY [facility] Last Admin: 04/26/17 08:32 Dose: 1 tab Sodium Chloride (Iv Flush) 10 - 80 ml IVF PRN PRN PRN Reason: Flushing Last Admin: 04/26/17 04:29 Dose: 50 ml Sodium Chloride (Normal Saline) 500 ml IV PRN PRN Last Admin: 04/21/17 14:22 Dose: 500 ml <Coty Miranda - 04/26/17 13:42> Progress Note-A&P (1) Respiratory failure with hypoxia Status: Acute (2) Thymoma Status: Chronic (3) Gastric adenocarcinoma Problem details: Recently Dx. Status: Chronic (4) Encounter for preprocedural cardiovascular examination Status: Acute (5) Abnormal electrocardiogram Status: Acute (6) Pulmonary edema Status: Acute (7) Pulmonary hypertension Status: Acute <Sarthak Watson - 04/29/17 15:19> (1) Pulmonary edema Status: Acute Assessment and plan: V/S stable with current diuresis, Weaning O2 at tolerates. Has O2 concentrator at home. (2) Respiratory failure with hypoxia Status: Acute Assessment and plan: Remains on O2 at 2l/nc. Less respiratory difficulty today. (3) Encounter for preprocedural cardiovascular examination Status: Acute (4) Abnormal electrocardiogram Status: Acute (5) Thymoma Status: Chronic (6) Gastric adenocarcinoma Problem details: Recently Dx. Status: Chronic (7) Pulmonary hypertension Status: Acute Assessment and plan: pa pressures on echo 72mmhg <Coty Miranda 04/26/17 15:52> - Time Spent With Patient Total time spent is greater than 50% in coordination of care (as documented) at patient's floor/unit and/or counseling patient: <Sarthak Watson - 04/29/17 15:19> Total time spent is greater than 50% in coordination of care (as documented) at patient's floor/unit and/or counseling patient: <Coty Miranda 04/26/17 13:42> less than 15 minutes <Coty Miranda 04/26/17 15:54> - Attestation Attestation Narrative: Recommendation After examining the patient I agree with the above assessment. I am involved in the formulation of the patient's plan of care. <AcehaiderSarthak 04/29/17 15:19> Sepsis Assessment - Evaluation Sepsis screening result: No Definite Risk <Coty Miranda 04/26/17 13:42> Hospital Course Summary Disclaimer: The visit summary below is not to be considered part of the above Progress Note. <Wilfrido Watsonin - 04/29/17 15:19> The visit summary below is not to be considered part of the above Progress Note. <Coty Miranda 04/26/17 13:42> Hospital Course: 04/18/17 Admission Patient outpatient observation under the care of Dr. Guillen for acute respiratory failure with hypoxia, hypernatremia with hypokalemia. Consultations placed to Dr. Hilario, Dr. Watson and Dr. Daly An echocardiogram is ordered for further cardiac evaluation. Obtain CRP and ESR for laboratory completeness. Patient did recently complete a ten-day course of Cipro for antimicrobial coverage. Will cover patient with IV Rocephin as there is some question regarding pulmonary infiltrates. She was given a one-time dose of 40 milligrams of IV Lasix as well as oral potassium supplementation. Oxygen therapy to maintain adequate saturations. 04/19/17 Appreciate consultation by multiple consultation specialists including Dr. Watson, Dr. Hilario and Dr. Daly. She does continue to require oxygen to maintain adequate saturations, which does meet her for inpatient criteria. Will change patient at this time. Bronchoscopy done per Dr. Daly; BAL washing sent. Echo reveal an EF of 74%, with moderate to severe tricuspid regurgitation and severe pulmonary hypertension. 04/20/17 Ongoing respiratory therapy with hypoxia; needing 4L of oxygen. Liver enzymes are back to normal. Potassium level has improved to 3.7. Renal function is stable. Sodium is still slightly high at 147. Waiting on results of bronchial washing and cytology; staging of gastric adenocarcinoma. Appreciate multiple consultants. Lasix 40 mg IV was given on 04/18 - cardiology has recommended gentle diuresis with 20 mg of IV Lasix daily. Continues on Rocephin 1 gm daily since 04/18/17. 04/21/17 Continue Rocephin for pulmonary coverage. Lasix 20mg po daily started yesterday for pulmonary edema-monitor for hypotension/orthostasis/elevating creatinine due to right heart dysfunction. Oral potassium 10mEq daily started due to Lasix use. Potassium and creatinine stable. 04/22/17 Still awaiting path and cytology reports. She is still on 3-4 L of oxygen, but feels like she is improving (except for new onset hemoptysis). Continue Rocephin for pulmonary coverage. Continue Lasix; radiographic improvement noted. Labs stable and hypernatremia has resolved. 04/23/17 20:11 Persistent hypoxia at rest (room air oxygen saturation 81% today) and with exercise-8 L supplemental oxygen required to maintain saturation above 90% with activities with exercise oximetry obtained earlier today. Will require 24-hour O2 at discharge. Supraclavicular lymph node biopsy obtained this afternoon for staging of gastric cancer. CEA negative, HER-2 testing pending. Continue Rocephin although bronchial aspirate with normal amrik. Today is day 6 ceftriaxone-discontinue after dose tomorrow. Transaminases climbing, bilirubin/alkaline phosphatase okay. ProBNP elevated. Continue diuresis as blood pressure permits. Electrolytes stable. 04/25- planning for placement of Port-A-Cath later today by Dr. Ortiz. No pathology is consistent with metastatic GI adenocarcinoma. Patient has decided to go ahead with chemotherapy treatment. Continues to be hypoxic requiring 5 liters. Significantly short of breath with minimal exertion. Continues on prednisone 40 grams daily. <Coty Miranda - 04/26/17 13:42>
--- NOTE | 2017-04-26 14:50 | Progress Note ---
<Dedra Alcocer Josefina - Last Filed: 04/26/17 14:47> Subjective: Carson is doing well and believes she's getting better. No shortness of breath at rest but continues to have problems with dyspnea on exertion. O2 was increased to 6L. She denies cough. No fever/chills. She denies weakness or dizziness. No discomfort at port site. No side effects [yet] from chemo, but she's paying close attention. Appetite has been good and bowels are moving. Objective Vital signs: Temperature 96.8 F 04/26/17 11:48 Pulse Rate 91 04/26/17 11:48 Respiratory Rate 16 04/26/17 11:48 Blood Pressure 100/67 04/26/17 11:48 Pulse Oximetry 91 04/26/17 13:20 Oxygen Delivery Method [place] Nasal Cannula Oxygen Flow Rate 6 Rhythm: Normal Sinus Rhythm Height/Weight/BMI: Weight 55 kg - Constitutional Present: no acute distress, well nourished, well developed - Routine HEENT Exam ENT: Present: mucous membranes moist, oropharynx clear - Routine Respiratory Exam Present: decreased breath sounds, CTA bilaterally - Routine Cardiovascular Exam Present: RRR, S1, S2 - Routine Abdominal Exam Present: soft, normoactive bowel sounds, non distended, non tender - Routine Extremities Exam Present: no edema, pulses intact, normal capillary refill - Routine Musculoskeletal Exam Musculoskeletal: Present: no clubbing or cyanosis, moving extremities well - Routine Skin Exam Present: intact, dry, warm - Routine Neurological Exam Present: alert, oriented X3 - Routine Psychiatric Exam Present: normal affect, normal thought process, cooperative Results - Labs CBC & Chem 7: 04/26/17 04:27 04/26/17 04:27 Microbiology Results: Microbiology 04/19/17 16:55 Bronchial Washing Acid Fast Bacilli Culture & Smear - Preliminary 04/19/17 16:55 Bal, Right Lower Lobe Gram Stain - Final 04/19/17 16:55 Bal, Right Lower Lobe Bronchial Aspirate Culture - Final Normal Respiratory Amrik 04/19/17 16:55 Bronchial Washing Fungal Culture - Preliminary Assessment and Plan (1) Respiratory failure with hypoxia Current visit: Yes Status: Acute (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 Current visit: Yes Status: Chronic (4) Pulmonary edema Current visit: Yes Status: Acute DVT Prophylaxis: SCD's Resuscitation Status: Do Not Resuscitate Assessment and Plan: Assessment Respiratory failure with hypoxia Pulmonary edema with hemoptysis Moderate to Severe tricuspid regurgitation with severe pulmonary hypertension, PA pressure of 72. Right ventricular dilation with global hypokinesis. Mild mitral regurgitation. LVH. Normal LV systolic function with EF of 74%. 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 Elevated liver enzymes and hyperbilirubinemia Elevated blood sugars Borderline thrombocytopenia Situational depression Plan Still requiring oxygen. Xopenex added today. Oncology has noted that lymphangitic spread of the cancer to lungs is contributing to hypoxia. Continue palliative chemo FOLFOX - monitor for side effects. Hyperphosphatemia - will discuss with attending. Hyperglycemia - continue SSI. Sepsis Assessment - Evaluation Sepsis screening result: No Definite Risk Hospital Course Summary Disclaimer: The visit summary below is not to be considered part of the above Progress Note. Hospital Course: 04/18/17 Admission Patient outpatient observation under the care of Dr. Guillen for acute respiratory failure with hypoxia, hypernatremia with hypokalemia. Consultations placed to Dr. Hilario, Dr. Watson and Dr. Daly An echocardiogram is ordered for further cardiac evaluation. Obtain CRP and ESR for laboratory completeness. Patient did recently complete a ten-day course of Cipro for antimicrobial coverage. Will cover patient with IV Rocephin as there is some question regarding pulmonary infiltrates. She was given a one-time dose of 40 milligrams of IV Lasix as well as oral potassium supplementation. Oxygen therapy to maintain adequate saturations. 04/19/17 Appreciate consultation by multiple consultation specialists including Dr. Watson, Dr. Hilario and Dr. Daly. She does continue to require oxygen to maintain adequate saturations, which does meet her for inpatient criteria. Will change patient at this time. Bronchoscopy done per Dr. Daly; BAL washing sent. Echo reveal an EF of 74%, with moderate to severe tricuspid regurgitation and severe pulmonary hypertension. 04/20/17 Ongoing respiratory therapy with hypoxia; needing 4L of oxygen. Liver enzymes are back to normal. Potassium level has improved to 3.7. Renal function is stable. Sodium is still slightly high at 147. Waiting on results of bronchial washing and cytology; staging of gastric adenocarcinoma. Appreciate multiple consultants. Lasix 40 mg IV was given on 04/18 - cardiology has recommended gentle diuresis with 20 mg of IV Lasix daily. Continues on Rocephin 1 gm daily since 04/18/17. 04/21/17 Continue Rocephin for pulmonary coverage. Lasix 20mg po daily started yesterday for pulmonary edema-monitor for hypotension/orthostasis/elevating creatinine due to right heart dysfunction. Oral potassium 10mEq daily started due to Lasix use. Potassium and creatinine stable. 04/22/17 Still awaiting path and cytology reports. She is still on 3-4 L of oxygen, but feels like she is improving (except for new onset hemoptysis). Continue Rocephin for pulmonary coverage. Continue Lasix; radiographic improvement noted. Labs stable and hypernatremia has resolved. 04/23/17 Persistent hypoxia at rest (room air oxygen saturation 81% today) and with exercise-8 L supplemental oxygen required to maintain saturation above 90% with activities with exercise oximetry obtained earlier today. Will require 24-hour O2 at discharge. Supraclavicular lymph node biopsy obtained this afternoon for staging of gastric cancer. CEA negative, HER-2 testing pending. Continue Rocephin although bronchial aspirate with normal amrik. Today is day 6 ceftriaxone-discontinue after dose tomorrow. Transaminases climbing, bilirubin/alkaline phosphatase okay. ProBNP elevated. Continue diuresis as blood pressure permits. Electrolytes stable. 04/25- planning for placement of Port-A-Cath later today by Dr. Ortiz. No pathology is consistent with metastatic GI adenocarcinoma. Patient has decided to go ahead with chemotherapy treatment. Continues to be hypoxic requiring 5 liters. Significantly short of breath with minimal exertion. Continues on prednisone 40 grams daily. <Cele Morgan - Last Filed: 04/26/17 17:27> Objective Vital signs: Temperature 98.0 F 04/26/17 15:42 Pulse Rate 83 04/26/17 15:42 Respiratory Rate 16 04/26/17 15:42 Blood Pressure 97/67 04/26/17 15:42 Pulse Oximetry 91 04/26/17 15:42 Oxygen Delivery Method Nasal Cannula Oxygen Flow Rate 6 Height/Weight/BMI: Weight 55 kg Results - Labs CBC & Chem 7: 04/26/17 04:27 04/26/17 04:27 Microbiology Results: Microbiology 04/19/17 16:55 Bronchial Washing Acid Fast Bacilli Culture & Smear - Preliminary 04/19/17 16:55 Bal, Right Lower Lobe Gram Stain - Final 04/19/17 16:55 Bal, Right Lower Lobe Bronchial Aspirate Culture - Final Normal Respiratory Amrik 04/19/17 16:55 Bronchial Washing Fungal Culture - Preliminary Assessment and Plan (1) Respiratory failure with hypoxia Current visit: Yes Status: Acute (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 Current visit: Yes Status: Chronic (4) Pulmonary edema Current visit: Yes Status: Acute Assessment and Plan: I have independently evaluated and examined this patient. I reviewed the chart, the patient's history, and the MARKETING ADMINISTRATOR/PA's documented findings as above. We discussed and formulated the assessment and plan as above with additions as below: Tolerating chemotherapy well, no nausea. Exertional dyspnea unchanged but has required increased oxygen overnight and oxygen saturation 90-91 on 6 L today; drops with any activity and taking longer to recover per field map technician. Minimal discomfort at Port-A-Cath site per patient. NAD, alert, fluent speech Respirations nonlabored with good airflow, breath sounds are clear except faint crackles at the right base. Port-A-Cath site unremarkable No edema lower extremities Will try Oxymizer due to high O2 demand-discussed with RT/Dr. Daly Chest x-ray in a.m, a.m. lab/x-ray ordered. We will need to requalify for home O2 prior to anticipated discharge Saturday after completion of chemotherapy. Glucose up significantly this morning after Decadron with chemotherapy yesterday evening. High-risk medications in use. Family members at bedside updated on plans. Hospital Course Summary Disclaimer: The visit summary below is not to be considered part of the above Progress Note.
[2017-04-26] MEDS: FLUOROURACIL IV SCH (22:16)
[2017-04-26] MEDS: D5W IV SCH (22:16)
[2017-04-27] MEDS: SALINE FLUSH 10ml SYRINGE IVF PRN ×3 (02:21→22:08)
[2017-04-27] MEDS: GUAIFENESIN LA 600 MG TABLET PO SCH ×2 (08:20→20:59)
[2017-04-27] MEDS: PredniSONE 20 MG TABLET PO SCH (08:20)
[2017-04-27] MEDS: FISH OIL PO SCH (08:21)
[2017-04-27] MEDS: MULTIVITAMIN PO SCH (08:21)
[2017-04-27] MEDS: BUDESONIDE INH.SOLN 0.5mg/2ml NEB AEROSOL SCH ×2 (10:00→21:26)
--- NOTE | 2017-04-27 10:42 | Progress Note ---
Oncology Subjective c/o nausea, no vomiting. d/w RN and MD. Plan for chemo to end tonight. Plan d/c home in AM. Pt with gastric ca with mets. Pos BM yest. Up to chair today. feels weak. Exam Vital signs: Temperature 97.5 F 04/27/17 08:00 Pulse Rate 80 04/27/17 08:00 Respiratory Rate 18 04/27/17 09:56 Blood Pressure 101/75 04/27/17 08:00 Pulse Oximetry 93 04/27/17 09:56 Oxygen Delivery Method Nasal Cannula Oxygen Flow Rate 5.5 Narrative: female in nad - Constitutional no acute distress, average body habitus - Routine HEENT Exam Head: Present: normocephalic, atraumatic Eye: Present: EOMI, PERRL ENT: Present: mucous membranes moist - Routine Neck Exam Present: supple. Absent: lymphadenopathy - Routine Respiratory Exam Present: CTA bilaterally - Routine Cardiovascular Exam Present: RRR. Absent: murmur - Routine Abdominal Exam Present: soft, non tender - Routine Extremities Exam Present: no edema. Absent: cyanosis, clubbing, edema Oncology Results - Labs CBC & Chem 7: 04/27/17 04:06 04/27/17 04:06 Labs: Short CBC 04/27/17 Range/Units 04:06 WBC 12.8 H (4.5-11.0) T/MM3 Hgb 12.1 (12-16) GM/DL Hct 38.3 (36-46) % Plt Count 138 (130-400) T/MM3 BMP 04/27/17 04:06 Sodium 140 Potassium 3.8 Chloride 104 Carbon Dioxide 24 BUN 30.0 H Creatinine 0.8 Glucose 175 H Calcium 8.9 Liver Function 04/27/17 Range/Units 04:06 Total Bilirubin 0.80 (0.20-1.30) MG/DL AST 142 H D (14-36) U/L ALT 151 H (9-52) U/L Alkaline Phosphatase 128 H (38-126) U/L Albumin 3.2 L (3.5-5.0) G/DL Assessment and Plan Assessment and Plan: Discussed with Dr. Elliott. She has pulmonary hypertension with right heart failure. She is having bronchoscopy at present time by Dr. Daly. Will await bronchoscopy findings and consider chemotherapy if this is metastatic gastric cancer early next week. Patient examined in post bronch recovery. Discussed with Dr. Daly. Await path. Agree with documentation by Karyna Elaine and I participated in the development of the plan of care of this patient. Impression. Met gastric ca. sites of disease is cervical lymph nodes and lung infiltrates thymoma nausea Plan FOLOFX chemo today. TO end tonight Plan home in am on O2. Plan follow up with Dr. Hilario next week. - Time Spent With Patient Total time spent is greater than 50% in coordination of care (as documented) at patient's floor/unit and/or counseling patient: less than 15 minutes Sepsis Assessment - Evaluation Sepsis screening result: No Definite Risk
[2017-04-27] MEDS: INSULIN ASPART 100unit/ml INJECTION SQ PRN ×2 (10:44→14:37)
--- NOTE | 2017-04-27 15:25 | Progress Note ---
<Myrna Lowery - Last Filed: 04/27/17 15:22> Subjective: Carson is seen today in follow up. She reports an upset stomach earlier today with some vomiting. She states she is no longer having any nausea or vomiting. Suspects she may have eaten too much breakfast. Denies any abdominal pain. She does not feel SOA, but continues to require significant O2 via oximizer. She had questions about her CXR, which we reviewed. Chart is reviewed for collateral information. Objective Vital signs: Temperature 97.1 F 04/27/17 12:52 Pulse Rate 76 04/27/17 12:52 Respiratory Rate 16 04/27/17 12:52 Blood Pressure 112/75 04/27/17 12:52 Pulse Oximetry 92 04/27/17 13:28 Oxygen Delivery Method [place] Nasal Cannula Oxygen Flow Rate 6 Rhythm: Normal Sinus Rhythm Height/Weight/BMI: Weight 57 kg - Constitutional Present: no acute distress, thin - Routine HEENT Exam Head: Present: normocephalic, atraumatic Eye: Present: EOMI, PERRL ENT: Present: mucous membranes moist - Routine Respiratory Exam Present: dyspnea (Mild), decreased breath sounds, wheezes (Faint intermittent), distant breath sounds, diminished air movement - Routine Cardiovascular Exam Present: RRR, S1, S2, no murmur - Routine Abdominal Exam Present: soft, tenderness, distended. Absent: normoactive bowel sounds (Quiet x 4 quadrants. ) - Routine Extremities Exam Present: no edema, non tender - Routine Musculoskeletal Exam Musculoskeletal: Present: no clubbing or cyanosis. Absent: normal strength ( Generalized weakness. ) - Routine Skin Exam Present: intact, dry (Skin is sallow. ), warm - Routine Neurological Exam Present: alert, oriented X3 - Routine Psychiatric Exam Present: normal affect, normal thought process, cooperative Results - Labs CBC & Chem 7: 04/27/17 04:06 04/27/17 04:06 Microbiology Results: Microbiology 04/19/17 16:55 Bronchial Washing Acid Fast Bacilli Culture & Smear - Preliminary 04/19/17 16:55 Bal, Right Lower Lobe Gram Stain - Final 04/19/17 16:55 Bal, Right Lower Lobe Bronchial Aspirate Culture - Final Normal Respiratory Amrik 04/19/17 16:55 Bronchial Washing Fungal Culture - Preliminary - Imaging and Cardiology Chest x-ray Status: image reviewed by me, pending Additional comments: Bilateral pulmonary infiltrates. Some mild clearing? Port visible. 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 Current visit: Yes Status: Chronic (4) Pulmonary edema Current visit: Yes Status: Acute DVT Prophylaxis: SCD's Resuscitation Status: Do Not Resuscitate Assessment and Plan: Assessment Respiratory failure with hypoxia Pulmonary edema with hemoptysis Moderate to Severe tricuspid regurgitation with severe pulmonary hypertension, PA pressure of 72. Right ventricular dilation with global hypokinesis. Mild mitral regurgitation. LVH. Normal LV systolic function with EF of 74%. 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 Elevated liver enzymes and hyperbilirubinemia Elevated blood sugars Borderline thrombocytopenia Situational depression Plan: 04/27/17 Still significant hypoxemia with oximizer use. Will need home O2. With significant pHTN, could consider adding gentle diuresis given pulmonary infiltrates, increasing O2 needs. BP is running a bit low, so would need close monitoring. She does endorse some epigastric upset. Add Prevacid solu-tabs to decrease GI upset due to acid. She was noted to have elevated BG following IV steroids. She has PRN solumedrol, hydrocortisone, and daily oral prednisone ordered. Wean prednisone? Electrolytes have been replaced. LFTs slowly trending up. Continue close monitoring. Pt. is anxious to return home tomorrow. Assess labs for stability. She would benefit from Home Health on discharge. - Time spent with patient 25 - 35 minutes Sepsis Assessment - Evaluation Sepsis screening result: No Definite Risk Hospital Course Summary Disclaimer: The visit summary below is not to be considered part of the above Progress Note. Hospital Course: Assessment Respiratory failure with hypoxia Pulmonary edema with hemoptysis Moderate to Severe tricuspid regurgitation with severe pulmonary hypertension, PA pressure of 72. Right ventricular dilation with global hypokinesis. Mild mitral regurgitation. LVH. Normal LV systolic function with EF of 74%. 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 Elevated liver enzymes and hyperbilirubinemia Elevated blood sugars Borderline thrombocytopenia Situational depression 04/18/17 Admission Patient outpatient observation under the care of Dr. Guillen for acute respiratory failure with hypoxia, hypernatremia with hypokalemia. Consultations placed to Dr. Hilario, Dr. Watson and Dr. Daly An echocardiogram is ordered for further cardiac evaluation. Obtain CRP and ESR for laboratory completeness. Patient did recently complete a ten-day course of Cipro for antimicrobial coverage. Will cover patient with IV Rocephin as there is some question regarding pulmonary infiltrates. She was given a one-time dose of 40 milligrams of IV Lasix as well as oral potassium supplementation. Oxygen therapy to maintain adequate saturations. 04/19/17 Appreciate consultation by multiple consultation specialists including Dr. Watson, Dr. Hilario and Dr. Daly. She does continue to require oxygen to maintain adequate saturations, which does meet her for inpatient criteria. Will change patient at this time. Bronchoscopy done per Dr. Daly; BAL washing sent. Echo reveal an EF of 74%, with moderate to severe tricuspid regurgitation and severe pulmonary hypertension. 04/20/17 Ongoing respiratory therapy with hypoxia; needing 4L of oxygen. Liver enzymes are back to normal. Potassium level has improved to 3.7. Renal function is stable. Sodium is still slightly high at 147. Waiting on results of bronchial washing and cytology; staging of gastric adenocarcinoma. Appreciate multiple consultants. Lasix 40 mg IV was given on 04/18 - cardiology has recommended gentle diuresis with 20 mg of IV Lasix daily. Continues on Rocephin 1 gm daily since 04/18/17. 04/21/17 Continue Rocephin for pulmonary coverage. Lasix 20mg po daily started yesterday for pulmonary edema-monitor for hypotension/orthostasis/elevating creatinine due to right heart dysfunction. Oral potassium 10mEq daily started due to Lasix use. Potassium and creatinine stable. 04/22/17 Still awaiting path and cytology reports. She is still on 3-4 L of oxygen, but feels like she is improving (except for new onset hemoptysis). Continue Rocephin for pulmonary coverage. Continue Lasix; radiographic improvement noted. Labs stable and hypernatremia has resolved. 04/23/17 20:11 Persistent hypoxia at rest (room air oxygen saturation 81% today) and with exercise-8 L supplemental oxygen required to maintain saturation above 90% with activities with exercise oximetry obtained earlier today. Will require 24-hour O2 at discharge. Supraclavicular lymph node biopsy obtained this afternoon for staging of gastric cancer. CEA negative, HER-2 testing pending. Continue Rocephin although bronchial aspirate with normal amrik. Today is day 6 ceftriaxone-discontinue after dose tomorrow. Transaminases climbing, bilirubin/alkaline phosphatase okay. ProBNP elevated. Continue diuresis as blood pressure permits. Electrolytes stable. 04/25- planning for placement of Port-A-Cath later today by Dr. Ortiz. No pathology is consistent with metastatic GI adenocarcinoma. Patient has decided to go ahead with chemotherapy treatment. Continues to be hypoxic requiring 5 liters. Significantly short of breath with minimal exertion. Continues on prednisone 40 grams daily. 04/27/17 15:32 04/27/17 15:36 Still significant hypoxemia with oximizer use. Will need home O2. With significant pHTN, could consider adding gentle diuresis given pulmonary infiltrates, increasing O2 needs. BP is running a bit low, so would need close monitoring. She does endorse some epigastric upset. Add Prevacid solu-tabs to decrease GI upset due to acid. She was noted to have elevated BG following IV steroids. She has PRN solumedrol, hydrocortisone, and daily oral prednisone ordered. Wean prednisone? Electrolytes have been replaced. LFTs slowly trending up. Continue close monitoring. Pt. is anxious to return home tomorrow. Assess labs for stability. She would benefit from Home Health on discharge. <Cele Morgan - Last Filed: 04/27/17 20:01> Objective Vital signs: Temperature 97.4 F 04/27/17 15:45 Pulse Rate 82 04/27/17 16:03 Respiratory Rate 20 04/27/17 15:45 Blood Pressure 98/73 04/27/17 15:45 Pulse Oximetry 93 04/27/17 16:17 Oxygen Delivery Method [place] Nasal Cannula Oxygen Flow Rate 6 Height/Weight/BMI: Weight 57 kg Results - Labs CBC & Chem 7: 04/27/17 04:06 04/27/17 04:06 Microbiology Results: Microbiology 04/19/17 16:55 Bronchial Washing Acid Fast Bacilli Culture & Smear - Preliminary 04/19/17 16:55 Bal, Right Lower Lobe Gram Stain - Final 04/19/17 16:55 Bal, Right Lower Lobe Bronchial Aspirate Culture - Final Normal Respiratory Amrik 04/19/17 16:55 Bronchial Washing Fungal Culture - Preliminary Assessment and Plan (1) Respiratory failure with hypoxia Current visit: Yes Status: Acute (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 Current visit: Yes Status: Chronic (4) Pulmonary edema Current visit: Yes Status: Acute Assessment and Plan: I have independently evaluated and examined this patient. I reviewed the chart, the patient's history, and the GRAIN OPERATOR/PA's documented findings as above. We discussed and formulated the assessment and plan as above with additions as below: Carson had an isolated episode of emesis this morning; she was subsequently able to eat lunch without difficulty. She feels less dyspneic than she has previously and has been able to do some minor grooming without becoming short of breath and reports that she can get up to the bathroom without dyspnea now. Oxygen saturations are slightly better today with saturations in the low to mid 90s on 5.5-6 L supplemental O2. senior qc technician reports that O2 sat is recovering more quickly when she is up than it did previously. Patient is alert and cooperative, affect is sad Respirations are nonlabored with good airflow, breath sounds are clear anteriorly/laterally Cardiac rhythm regular, no edema Chest x-ray obtained this morning reviewed by myself demonstrates diffuse bilateral infiltrates-probable lymphangitic spread Chemotherapy will complete late tonight. Oxygen saturation on room air today 83% , 5 L minimum required to maintain saturation at 90% and 6 L to maintain saturation above 90% with minimal activities. Check BNP in a.m. in the event additional diuresis needed prior to discharge. Anticipate discharge tomorrow with 5-6 L continuous oxygen for pulmonary edema/ lymphangitic spread. Discharge plans reviewed with Dr. Catalan and case management. Hospital Course Summary Disclaimer: The visit summary below is not to be considered part of the above Progress Note.
[2017-04-27] MEDS ORDERED: LANSOPRAZOLE SOLU-TAB 15 MG TABLET PO SCH (17:00)
[2017-04-28] MEDS: SALINE FLUSH 10ml SYRINGE IVF PRN ×2 (06:08→11:31)
[2017-04-28] MEDS ORDERED: LANSOPRAZOLE SOLU-TAB 15 MG TABLET PO SCH (06:30)
[2017-04-28 08:22] VITALS: BP 97/72; TEMP 97.1
[2017-04-28] MEDS: FISH OIL PO SCH (09:07)
[2017-04-28] MEDS: PredniSONE 20 MG TABLET PO SCH (09:07)
[2017-04-28] MEDS: MULTIVITAMIN PO SCH (09:07)
[2017-04-28] MEDS: GUAIFENESIN LA 600 MG TABLET PO SCH (09:07)
--- NOTE | 2017-04-28 09:26 | XRay Report ---
INDICATION: hypoxia PROCEDURE: CHEST 2-VIEWS UPRIGHT (PA & LAT) Encounter: Initial COMPARISON: April 25, 2017 FINDINGS: Stable appearance of the chest with increased interstitial markings bilaterally. No new consolidation, gross pleural effusion or pneumothorax. Heart size and mediastinal contours are stable. Pulmonary vascularity is unchanged. Impression: Stable appearance of the chest. .
[2017-04-28 10:10] VITALS: RESP 24
[2017-04-28] MEDS: BUDESONIDE INH.SOLN 0.5mg/2ml NEB AEROSOL SCH (10:11)
--- NOTE | 2017-04-28 10:32 | Discharge Instructions ---
Discharge Plan - Med Rec/Dispo Referrals/Follow Up: Markus Hilario MD [Physician] - (next week, call office Sunday 04/29 to schedule f/u appt) Nicole Gavin APRN [Family Provider] - 2 Weeks Jann Instructions: Dyspnea (GEN) Prescriptions: [place]ifenesin LA [Mucinex LA] 600 mg PO BID PRN #30 tab PRN Reason: Cough /Congestion LEVALBUTEROL 1.25mg/3ml NEB [XOPENEX 1.25mg/3ml] 1.25 mg AEROSOL BID #60 neb PredniSONE [Deltasone] 20 mg PO WB #5 tab Budesonide Inhalation [Pulmicort Inhalation] 0.5 mg AEROSOL RTBID #60 vial Continue [place]-3 Fatty Acids/Fish Oil [Fish Oil 1,200 mg Softgel] 1 cap PO DAILY Multivit,Calc,Mins/Iron/Folic [Women's Daily Caplet] 1 each PO DAILY Calcium Carbonate/Vitamin D3 [Calcium 600-Vit D3 2,500 Sftgl] 1 tab PO DAILY Discontinued Ciprofloxacin [Cipro] 500 mg PO BID Discharge Instructions/Outpatient Orders: Final Provider Discharge Instructions Location: Determined By Patient - Disposition 01 Discharged Home, Self-Care
[2017-04-28 11:28] VITALS: O2SAT 92
[2017-04-28 12:01] VITALS: PULSE 91
--- NOTE | 2017-04-28 19:32 | Discharge Summary ---
Discharge Information Date of admission: 04/19/17 10:45 Anticipated date of discharge: 04/28/17 Attending Physician: Cele Morgan MD Primary care physician: Nicole Gavin APRN Consults: Markus Ortiz - Discharge Diagnosis Discharge Diagnosis: Metastatic gastric carcinoma Malignant thymoma Acute on chronic hypoxic respiratory failure Pulmonary edema - Procedures Procedures: Echocardiogram on 04/18/17: Echocardiogram on 04/18/17 1. Normal LV systolic function with ejection fraction of 74%. 2. Left ventricular hypertrophy. 3. Right atrial dilation. 4. Right ventricular dilation with global hypokinesia. 5. Mild mitral regurgitation. 6. Enaxfzjh-il-ebhcbb tricuspid regurgitation with severe pulmonary hypertension with estimated pulmonary artery systolic pressure of 72. 7. Mild pulmonary insufficiency. Bronchoscopy with biopsy and cytology on 04/19/17 Supraclavicular lymph node biopsy with ultrasound guidance on 04/23/17 Insertion of Port-A-Cath on 04/25/17 - Laboratory Labs: On admission white count was 9.3, hemoglobin 12.3, platelet count 145,000. ESR 25, CRP 12.4, d-dimer 1024, INR 1.17. ABG 7.49/31/59/24 saturation 92% on 4 L supplemental O2. Admission chemistries notable for sodium of 147, potassium 3.5, creatinine 0.8, bilirubin 1.6, AST 60, ALT 57, proBNP 5440 Additional studies obtained during the hospital course include TSH 1.73, A1c 6.4 , CEA 1.78; 1 Hemoccult was negative 04/28/17 04:10 04/28/17 04:10 - Microbiology Microbiology 04/19/17 16:55 Bronchial Washing Acid Fast Bacilli Culture & Smear - Preliminary, no AFB seen on stains 04/19/17 16:55 Bronchial Washing Fungal Culture - Preliminary, culture negative after one week 04/19/17 16:55 Bal, Right Lower Lobe Gram Stain - Final 04/19/17 16:55 Bal, Right Lower Lobe Bronchial Aspirate Culture - Final Normal Respiratory Delia - Radiology Radiology: Chest CTA on 04/18/17: 1. No pulmonary embolus. Mild pulmonary edema. 2. Continued multifocal areas of consolidation could represent metastatic disease given the history of gastric cancer. Acute infection is unlikely given the stable appearance. Chest x-ray on 04/19/17 following bronchoscopy was without evidence of pneumothorax, follow-up chest x-rays on 04/22 demonstrated improved aeration continued to prior days, and final chest x-ray on 04/27 demonstrated increased interstitial markings which were stable compared to prior films. - Pathology Right lower lobe biopsy and cytologies obtained at bronchoscopy on 04/19 demonstrated chronic inflammation and no evidence of malignancy. Lymph node biopsy on 04/23 positive for metastatic poorly differentiated carcinoma compatible with gastric adenocarcinoma. History of Present Illness HPI: Carson is a pleasant 66-year-old female who has had a complicated several months. She had a unintentional 8 pound weight loss . She was evaluated by her primary care provider, Nicole Gavni at [facility]. A CT of the chest was obtained back in March 2017 following complaints of shortness of breath. At that time, patient was found to have an anterior mediastinal mass which was concerning for thyoma or lymphoma. Unfortunately, a CT-guided needle biopsy of the mediastinal mass did reveal thymoma. Bone scan was performed on April 01 that was negative for osseous metastasis. Thyroid sonogram from March 22 did reveal a 22 millimeter nodule adjacent to the deep aspect of the left thyroid lobe. An EGD was performed by Dr. Ortiz on April 10, 2017 to obtain gastric biopsy. Pathology revealed invasive adenocarcinoma. This morning patient noted to be more short of breath. She checked her oxygen saturation at home and it was found to be in the 80s. She felt that her heart rate was running fast and she activated EMS for transportation to [facility] emergency room for further evaluation. On arrival, room air saturations revealed 77%. Patient was placed on 4 liters of oxygen by nasal cannula to maintain adequate saturations. Basic laboratory studies were obtained in the emergency room. CBC was unremarkable. Sodium was found to be elevated at 147, potassium 3.5, BUN 15, creatinine 0.8, glucose 234. AST and ALT are mildly elevated. Initial troponin 0.040, proBNP 5440. Patient does report that she has recently been on Cipro and completed this course. Yesterday, however, she is unclear why she was taking this. ABG is obtained with a pH of 7.490, pCO2 31, pO2 59, bicarbonate 24. A urinalysis is unremarkable. INR 1.17, D-Dimer is elevated at 1024. Due to this finding, a CT scan of the chest was obtained to rule out PE. No pulmonary emboli was noted, mild pulmonary edema is present. Multi focal areas of consolidation could represent metastatic disease given history of gastric cancer. It is felt that acute infection is more unlikely. Hospital Course This is a general summary of the patient's hospital course. For more details refer to the complete medical record. Hospital course: Assessment Respiratory failure with hypoxia, acute/chronic Gastric adenocarcinoma with metastasis to left supraclavicular lymph node. Pulmonary edema with hemoptysis Moderate to Severe tricuspid regurgitation with severe pulmonary hypertension, PA pressure of 72. Right ventricular dilation with global hypokinesis. Mild mitral regurgitation. LVH. Normal LV systolic function with EF of 74%. Hypernatremia (POA) - resolved Hypokalemia (POA) - resolved Thymoma, malignant Elevated liver enzymes and hyperbilirubinemia Elevated blood sugars Borderline thrombocytopenia Situational depression Hospital course Mrs Schneider was hospitalized for acute respiratory failure with hypoxia, hypernatremia with hypokalemia. Dr. Hilario, Dr. Watson and Dr. Daly were consulted for assistance in managing the patient's known malignancies and pulmonary edema with respiratory failure. The patient was initially treated with Lasix with potassium supplementation for pulmonary edema. Echocardiogram was obtained revealing ejection fraction of 74%, with moderate to severe tricuspid regurgitation and severe pulmonary hypertension. Bronchoscopy done per Dr. Daly on 04/19; BAL and biopsy sent for pathology with subsequent report of inflammation but no malignancy. Throughout this time the patient continued to require supplemental oxygen continuously at about 4 L although with activity desaturated requiring higher flow rates. Diuresis was continued and she was empirically treated with Rocephin x 7 days for possible aspiration pneumonia based on report chronic inflammation on the lung biopsy. Swallow evaluation was unremarkable and the patient denied preceding emesis that would' ve contributed to aspiration. Prednisone was added for inflammation at 40 mg daily and continued for 5 days prior to discharge at which point dose was decreased to 20 mg daily to be continued for an additional 5 days after which steroids will be discontinued. Throughout the hospitalization hypoxia was persistent although oxygen demand varied somewhat requiring between 3 and 6 L of oxygen at rest and up to 8 L with activity. At discharge she was on 3 L supplemental oxygen but continued to require 6-8 L with activity. An Oxymizer cannula was utilized due to high flow of oxygen required frequently. Left supraclavicular lymph node biopsy was obtained on 04/23 for staging of malignancies, this was positive for cancer suspicious for adenocarcinoma consistent with gastric cancer. At that point it was elected to place a Port-A- Cath and initiate first course of chemotherapy while hospitalized. PA-C was placed on 04/25 and chemotherapy initiated late that day with FOLFOX given over 2 day course. Chemotherapy concluded on the morning of 04/28 at which time patient was felt stable for discharge. On the morning of 04/28 patient reported that she was generally okay other than fatigue. She was tolerating minor activities in the room with minimal dyspnea but became short of breath ambulating outside the room. She appears fatigued but is alert and cooperative. There were faint crackles at the left base but no wheezing. There is no peripheral edema present. Discharge medications were reviewed with Carson and her daughter. She is to follow up with Dr. Hilario later this week and will have course 2 of her chemotherapy in approximately 2 weeks. Time spent with patient: discharge greater than 30 minutes Discharge Plan - Med Rec/Dispo Referrals/Follow Up: Markus Hilario MD [Physician] - (next week, call office Sunday 04/29 to schedule f/u appt) Nicole Gavin APRN [Family Provider] - 2 Weeks Truvjessica Instructions: Dyspnea (GEN) Prescriptions: New Guaifenesin LA [Mucinex LA] 600 mg PO BID PRN #30 tab PRN Reason: Cough /Congestion LEVALBUTEROL 1.25mg/3ml NEB [XOPENEX 1.25mg/3ml] 1.25 mg AEROSOL BID #60 neb PredniSONE [Deltasone] 20 mg PO WB #5 tab Budesonide Inhalation [Pulmicort Inhalation] 0.5 mg AEROSOL RTBID #60 vial Continue [place]-3 Fatty Acids/Fish Oil [Fish Oil 1,200 mg Softgel] 1 cap PO DAILY Multivit,Calc,Mins/Iron/Folic [Women's Daily Caplet] 1 each PO DAILY Calcium Carbonate/Vitamin D3 [Calcium 600-Vit D3 2,500 Sftgl] 1 tab PO DAILY Discontinued Ciprofloxacin [Cipro] 500 mg PO BID Discharge Instructions/Outpatient Orders: Final Provider Discharge Instructions Location: Determined By Patient - Disposition 01 Discharged Home, Self-Care
== END 2017-04-28 11:53 | disposition home or self-care (01) | DRG 987 ==
LOC: ED 09:06 → MED 09:06
PROVIDERS: ADMIT Hospitalist; ATTEND Internal Medicine